=== PATIENT | female | born 1940 | race Caucasian/White ===

== ENCOUNTER 2016-06-10 18:22 | Emergency (ER) | payer MEDICARE, OTHER ==
[2016-06-10 19:51] LABS: CHLORIDE,CL 99 mmol/L (98-107); SODIUM,NA 135 mmol/L (136-145)
[2016-06-10] MEDS ORDERED: Sodium Chloride 0.9% 1,000 ML IV ONE (19:53)
[2016-06-10 20:32] VITALS: BP 127/70
[2016-06-10] MEDS ORDERED: cefTRIAXone 1 GM Vial IVPUSH ONE (21:26)
[2016-06-10] MEDS ORDERED: Take Home: Ondansetron 4 MG Tab.DIS, 2 Tab Pack PO ONE (21:31)
[2016-06-10] MEDS ORDERED: Take Home: Sulfamethoxazole/Trimethoprim 800-160 MG Tab, 2 Tab Pack PO ONE (21:33)
--- NOTE | 2016-06-27 11:16 | ER ---
Date of Service: 06/10/2016 SUBJECTIVE: Amanda presents to the emergency room after a syncopal episode. She states that she was using the toilet and had a bowel movement and during that process, had a syncopal episode and subsequently fell and struck her head. She states that she is also nauseated and has had 1 large emesis. EMS was summoned. They did give her IV Zofran on the way to the hospital for her nausea. The patient has not exhibited any further syncopal episodes. She states that she was not experiencing any chest pain or shortness of breath prior to this incident. PAST MEDICAL HISTORY: 1. Paroxysmal atrial tachycardia. 2. Hyperlipidemia. 3. Hypertension. 4. Asthma. 5. Lung nodule. 6. Hypothyroidism. 7. GERD. MEDICATIONS: 1. Calcium carbonate. 2. Ipratropium bromide. 3. Albuterol HFA. 4. Extra-strength Tylenol. 5. Albuterol sulfate. 6. Enteric-coated aspirin. 7. Vitamin D3. 8. Diltiazem ER. 9. Metoprolol tartrate. 10.Levothyroxine. 11.Advair 250/50. 12.Multivitamin. 13.Zocor. 14.Prilosec. ALLERGIES: NKDA. REVIEW OF SYSTEMS: General: No fever or chills. HEENT: Did strike head in the fall and the syncopal episode subsequent to fall. Denies any blurred vision. Denies any mid face trauma. Respiratory: No shortness breath. Cardiac: Denies any substernal chest pain. No jaw, arm, neck, or back pain. No palpitations. Gastrointestinal: Positive for nausea, vomiting. Denies any melena, hematochezia, or hematemesis. Genitourinary: Denies any dysuria. Musculoskeletal: No myalgias or arthralgias. Neurologic: Please see history of present illness. No seizure activity. No complaints of headache. PHYSICAL EXAMINATION: General: This is a 75-year-old female patient, who is in no acute distress. Vital Signs: Blood pressure is 127/70, O2 saturation is 92%, pulse rate is 82, temperature is 35.5. Skin: Warm, pink, and dry. HEENT: Head is normocephalic. She does have some abrasions to her nose and forehead. Eyes; PERRLA, extraocular movements are intact. Ears, TMs are clear. Mouth, oral mucosa is moist. No erythema or exudate noted in hypopharynx. Neck: Supple without masses. There is no lymphadenopathy. Lungs: Clear to auscultation. Heart: Regular rate and rhythm. Normal S1, S2. No S3, S4, murmurs, clicks, or rubs. Abdomen: Soft, nontender. There is no hepatosplenomegaly or masses noted. Nontender to palpation. Her bowel sounds are normoactive. Extremities: Without edema. Neurologic: The patient is alert, oriented, answers all questions appropriately. Her speech is fluent. Her gait is within normal limits. IMAGING: CT scan of the patient's brain was obtained. There was no evidence of any acute pathology on the CT scan. Flat and upright abdominal series was obtained. No evidence of any obvious obstruction noted. LABORATORY DATA: WBCs 17,000, hemoglobin is 15.3, platelets are 315. Chemistry; sodium is 135, potassium is 4.3, chloride is 99, bicarb is 28, BUN is 11, creatinine is 0.8, GFR is greater than 60, glucose is 117, calcium is 8.8, corrected calcium is 8.72, magnesium is 1.9. Total bilirubin is 0.5, AST is 22, ALT is 36, alkaline phosphatase is 78, total protein is 6.9, albumin is 4.1. Amylase is 44, lipase is 194. Urinalysis was obtained; she did have small leukocyte esterase, specific gravity is 1.025, she did have 30 protein, she did have few bacteria and 10 to 40 wbc's per high-power field. EMERGENCY ROOM COURSE: IV access was established. The patient was given a liter of normal saline IV. She reported feeling significantly better at time of discharge. She remained stable in my care in the emergency room. ASSESSMENT: 1. Syncopal episode secondary to vasovagal syncope. 2. Dehydration. PLAN: The patient will be discharged. Again, the patient was feeling much better. Her nausea was improved. We will have her follow up in the clinic in the next 5 to 7 days, sooner if she develops any chest pain, shortness of breath, headache, or other worrisome signs or symptoms. All questions were answered. MWK: 06/27/2016 10:02:53 MODL: 06/27/2016 10:48:19 /[id number]
== END 2016-06-10 22:05 | disposition home or self-care (01) ==
LOC: SUPCPDRO 18:22 → VM.ED 18:22
DX: R55 Syncope and collapse (principal); E86.0 Dehydration; R11.0 Nausea; I48.91 Unspecified atrial fibrillation; E78.5 Hyperlipidemia, unspecified; I10 Essential (primary) hypertension; J45.909 Unspecified asthma, uncomplicated; R91.1 Solitary pulmonary nodule; E03.9 Hypothyroidism, unspecified; K21.9 Gastro-esophageal reflux disease without esophagitis; Z79.899 Other long term (current) drug therapy
CPT/HCPCS: 36415; 70450; 74022; 80053; 81001; 82150; 83690; 83735; 85025; 96365; 96375; 99285; A9270; J0696; J7030; 99283-GF

== ENCOUNTER 2018-08-25 08:40 | Emergency (ER) | payer MEDICARE, OTHER ==
[2018-08-25] MEDS ORDERED: Sodium Chloride 0.9% 1,000 ML IV ONE (09:08)
--- NOTE | 2018-08-25 09:19 | EDM.PDOC ---
ED HPI GENERAL MEDICAL PROBLEM - General Chief Complaint: General Stated Complaint: urine frequency Time Seen by Provider: 08/25/18 08:50 Source of Information: Reports: Patient, EMS, EMS Notes Reviewed, RN History Limitations: Reports: No Limitations - History of Present Illness INITIAL COMMENTS - FREE TEXT/NARRATIVE: Patient comes in emergency Department with complaints of urinary frequency, hesitancy, and syncopal episode. Patient states that she went to bed approximately 9 PM last night and noticed that she had to use the bathroom multiple times and did not have a lot of output. Around 11 PM she woke up out of bed and she states from then on out throughout the night she was up every hour trying to use the restroom. She states that small amounts of amount each time but she felt urgency to have to go. She states that she woke up this morning is going to the bathroom she fell he she had a bowel movement but she was unable to have a bowel movement she became dizzy and lightheaded while she was sitting on the toilet. She banged on the wall to get her 's attention to assister her from the bathroom. She was dizzy lightheaded and felt she may puke. She states she did not faint and did not pass out. Her ended up contacting 911 for further assistance. By the time EMS arrived on scene patient states that she felt back to her baseline and needed to use the bathroom again for she felt urgency. EMS brought her into the emergency department she states that she does not feel weak faint or dizzy. He still continues to have urgency and hesitancy. She feels like her bladder is enlarged. She denies any burning sensation with urination. She also denies noting any blood in her urine. Patient denies any chest pain, shortness of breath, dizziness, lightheadedness, headache, blurred vision, or swelling in the lower extremities. Patient does not have a significant cardiac history. Patient does admit to having COPD and states it's fairly regulated. Patient denies any other concerns or complaints at the current time. Onset: Gradual Location: Reports: Generalized Quality: Reports: Other Severity: Mild Improves with: Reports: None Worsens with: Reports: None Associated Symptoms: Reports: No Other Symptoms - Related Data Allergies Allergy/AdvReac Type Severity Reaction Status Date / Time No Known Allergies Allergy Verified 08/25/18 09:22 Home Meds: Home Meds Aspirin [Ecotrin] 81 mg PO DAILY 03/29/14 [History] Calcium Carbonate/Vitamin D3 [Oyster Shell Calcium] 1 tab PO DAILY 03/29/14 [ History] Cholecalciferol (Vitamin D3) [Vitamin D3] 1,000 unit PO DAILY 03/29/14 [History] Fluticasone/Salmeterol [Advair 250-50 Diskus] 2 puff INH BID 03/29/14 [History] Levothyroxine Sodium [Levoxyl] 50 mcg PO DAILY 03/29/14 [History] Metoprolol Tartrate 25 mg PO BID 03/29/14 [History] Multivitamin [Multi Vitamin Daily] 1 each PO DAILY 03/29/14 [History] Omeprazole [Prilosec] 20 mg PO BID 03/29/14 [History] Simvastatin [Zocor] 10 mg PO DAILY 03/29/14 [History] predniSONE 5 mg PO ASDIRECTED 03/29/14 [History] Albuterol [Proventil HFA] 2 puff INH Q4H PRN 06/10/16 [History] Ipratropium [place] 2 sprays NS BID 06/10/16 [History] Diltiazem HCl [Diltiazem ER] 120 mg PO DAILY 08/25/18 [History] Meloxicam 15 mg PO DAILY 08/25/18 [History] guaiFENesin/Codeine Phosphate [Cheratussin AC Syrup] 10 ml PO Q4H PRN 08/25/18 [ History] Past Medical History HEENT History: Reports: Impaired Vision Cardiovascular History: Reports: High Cholesterol, Hypertension Other Cardiovascular History: paroxysmal atrial tachycardia, hyperlipidemia Respiratory History: Reports: Asthma Other Respiratory History: lung nodule Gastrointestinal History: Reports: GERD Other Endocrine/Metabolic History: hypothyroid Other Oncologic History: thyroid cancer Social & Family History - Caffeine Use Caffeine Use: Reports: None ED ROS GENERAL - Review of Systems Review Of Systems: ROS reveals no pertinent complaints other than HPI. Constitutional: Reports: No Symptoms HEENT: Reports: No Symptoms Respiratory: Reports: No Symptoms Cardiovascular: Reports: No Symptoms Endocrine: Reports: No Symptoms : Reports: Frequency, Urgency, Urinary Retention Musculoskeletal: Reports: No Symptoms Skin: Reports: No Symptoms Neurological: Reports: No Symptoms Psychiatric: Reports: No Symptoms Hematologic/Lymphatic: Reports: No Symptoms Immunologic: Reports: No Symptoms ED EXAM, GENERAL - Physical Exam Exam: See Below Exam Limited By: No Limitations General Appearance: Alert, WD/WN, No Apparent Distress Head: Atraumatic, Normocephalic Respiratory/Chest: No Respiratory Distress, Lungs Clear, Normal Breath Sounds, No Accessory Muscle Use, Chest Non-Tender Cardiovascular: Normal Peripheral Pulses, Regular Rate, Rhythm, No Edema GI/Abdominal: Normal Bowel Sounds, Soft, Non-Tender, No Distention Extremities: Normal Inspection, Normal Range of Motion, Non-Tender, Normal Capillary Refill Neurological: Alert, Oriented, Normal Gait Psychiatric: Normal Affect, Normal Mood Skin Exam: Warm, Dry, Intact, Normal Color Course - Vital Signs Last Recorded V/S: Last Vital Signs Temp 36.7 C 08/25/18 08:45 Pulse 112 H 08/25/18 08:45 Resp 16 08/25/18 08:45 BP 148/67 H 08/25/18 08:45 Pulse Ox 94 L 08/25/18 08:45 - Orders/Labs/Meds Orders: Active Orders 24 hr Category Date Time Status CULTURE URINE [RM] Stat Lab 08/25/18 10:30 Received Labs: Laboratory Tests 08/25/18 08/25/18 08/25/18 Range/Units 09:16 09:16 10:30 WBC 5.9 (4.0-10.0) x10^3/uL RBC 4.85 (4.00-5.50) x10^6/uL Hgb 14.8 (12.0-16.0) g/dL Hct 44.0 (33.0-47.0) % MCV 90.7 (78.0-93.0) fL MCH 30.5 (26.0-32.0) pg MCHC 33.6 (32.0-36.0) g/dL RDW Coeff of Deanna 13.0 (10.0-15.0) % Plt Count 214 D (130-400) x10^3/uL Neut % (Auto) 74.4 (50.0-80.0) % Lymph % (Auto) 11.6 L (25.0-50.0) % [place] % (Auto) 12.8 H (2.0-11.0) % Eos % (Auto) 0.7 (0.0-4.0) % Baso % (Auto) 0.5 (0.2-1.2) % Sodium 137 (136-145) mmol/L Potassium 4.3 (3.5-5.1) mmol/L Chloride 102 (98-107) mmol/L Carbon Dioxide 25 (21-32) mmol/L Anion Gap 14.3 (10-20) mmol/L BUN 12 (7-18) mg/dL Creatinine 0.9 (0.55-1.02) mg/dL Est Cr Clr Drug Dosing TNP Estimated GFR (MDRD) > 60 Glucose 110 H (74-106) mg/dL Calcium 8.4 L (8.5-10.1) mg/dL Corrected Calcium 8.80 (8.5-10.1) mg/dL Total Bilirubin 0.5 (0.2-1.0) mg/dL AST 20 (15-37) U/L ALT 28 (14-59) U/L Alkaline Phosphatase 68 (46-116) U/L Troponin I < 0.017 (<=0.056) ng/mL Total Protein 6.5 (6.4-8.2) g/dL Albumin 3.5 (3.4-5.0) g/dL Globulin 3.0 Albumin/Globulin Ratio 1.17 Urine Color Yellow (YELLOW) Urine Appearance Clear (CLEAR) Urine pH 7.5 (5.0-8.0) Ur Specific [place] 1.010 Urine Protein Negative (NEGATIVE) mg/dL Urine Glucose (UA) Negative (NEGATIVE) mg/dL Urine Ketones Negative (NEGATIVE) mg/dL Urine Occult Blood Negative (NEGATIVE) Urine Nitrite Negative (NEGATIVE) Urine Bilirubin Negative (NEGATIVE) Urine Urobilinogen 0.2 (0.2) EU/dL Ur Leukocyte Esterase Trace H (NEGATIVE) Urine RBC Not seen (NOT SEEN) /HPF Urine WBC 0-5 (NOT SEEN) /HPF Ur Squamous Epith Cells Rare (NEGATIVE) /HPF Urine Bacteria Not seen (NEGATIVE) /HPF Urine Mucus Not seen (NEGATIVE) /LPF Meds: Medications Discontinued Medications Generic Name Dose Route Start Last Admin Trade Name Freq PRN Reason Stop Dose Admin Sodium Chloride 1,000 mls @ 1,000 mls/hr 08/25/18 09:08 08/25/18 09:43 Normal Saline IV 08/25/18 10:07 Not Given ONETIME ONE Departure - Departure Time of Disposition: 10:50 Disposition: Home, Self-Care 01 Clinical Impression: Vasovagal near-syncope, Urinary frequency - Discharge Information *PRESCRIPTION DRUG MONITORING PROGRAM REVIEWED*: Not Applicable *COPY OF PRESCRIPTION DRUG MONITORING REPORT IN PATIENT ROSALIO: Not Applicable Instructions: Near-Syncope, [id number] Referrals: Micahel Larose MD [Primary Care Provider] - Forms: ED Department Discharge Additional Instructions: 1. rest 2. increase your water intake 3. Take all antibiotics even if feeling better 4. Follow up as needed 5. Can take over the counter AZO if needed for bladder spasms 6. Activity and diet as tolerated 7. When needing to use the bathroom try and make sure you are hydrated and not to strain when trying to have a bowel movement. That can cause a quick drop in your blood pressure making you feel weak, faint, and dizzy 8. Labs today completed did not show any acute findings. Urine test revealed a UTI 9. EKG completed today did not show any acute findings 10. Call with any questions or concerns - Problem List Review Problem List Initiated/Reviewed/Updated: Yes - My Orders Last 24 Hours: My Active Orders 08/25/18 10:30 CULTURE URINE [RM] Stat - Assessment/Plan Last 24 Hours: My Active Orders 08/25/18 10:30 CULTURE URINE [RM] Stat Assessment:: 1. urinary frequency/hesitancy/retention 2. Near Syncopal-vasovagal response Plan: 1. EKG completed via ems. Result reviewed with the pt. Sinus tach with no acute findings 2. Labs completed. results reviewed with the patient 3. IV started via EMS fluids running. 1L NS given in ER total 4. UA completed in ER. negative findings 5. Education regarding care, activity, diet, and follow up provided 6. All questions and concerns addressed prior to discharge
[2018-08-25 09:45] LABS: CHLORIDE,CL 102 mmol/L (98-107); SODIUM,NA 137 mmol/L (136-145)
[2018-08-25 09:46] LABS: ANION GAP 14.3 mmol/L (10-20)
[2018-08-25 13:45] VITALS: BP 147/83
== END 2018-08-25 11:00 | disposition home or self-care (01) ==
LOC: VM.ED 08:40
DX: R55 Syncope and collapse (principal); R35.0 Frequency of micturition; I10 Essential (primary) hypertension; E78.00 Pure hypercholesterolemia, unspecified; K21.9 Gastro-esophageal reflux disease without esophagitis; E03.9 Hypothyroidism, unspecified; Z79.899 Other long term (current) drug therapy; Z79.82 Long term (current) use of aspirin
CPT/HCPCS: 36415; 80053; 81001; 84484; 85025; 87086; 99284; 99284-GF

== ENCOUNTER 2019-01-12 08:58 | Emergency (ER) | payer MEDICARE, OTHER ==
[2019-01-12 09:14] VITALS: BP 144/76; PULSE 97
--- NOTE | 2019-01-12 09:24 | EDM.PDOC ---
ED HPI GENERAL MEDICAL PROBLEM - General Chief Complaint: General Stated Complaint: WEAK, PASSED OUT Time Seen by Provider: 01/12/19 09:00 Source of Information: Reports: Patient History Limitations: Reports: No Limitations - History of Present Illness INITIAL COMMENTS - FREE TEXT/NARRATIVE: Patient states over the last 3 or 4 days she has not had a bowel movement she got up about 1:00 this morning to try to use the restroom while straining she got lightheaded and a little dizzy that resolved after a few minutes and she was back to bed. About 7:00 this morning while trying to have another bowel movement she had the same signs and symptoms went back to the bed and her called EMS. Patient states she has been taking [id number] MiraLAX with no relief. Patient states she has mild intermittent abdominal cramping that's been going on for about 3-4 days non-generalized may last just a few minutes and then go away she's been eating and drinking normally. She states she did feel nauseated with getting loaded onto the EMS stretcher but it resolved after a few seconds overall she states she has been doing very well and had a normal checkup last week with her primary care provider. She has no other complaints at this time Onset Date: 01/12/19 Onset Time: 08:55 Location: Reports: Abdomen Quality: Reports: Other (crampy ) Severity: Mild (3) Associated Symptoms: Reports: No Other Symptoms Abdomen Pain Score (Numeric/FACES): 3 - Related Data Allergies Allergy/AdvReac Type Severity Reaction Status Date / Time No Known Allergies Allergy Verified 01/12/19 09:09 Home Meds: Home Meds Cholecalciferol (Vitamin D3) [Vitamin D3] 1,000 unit PO DAILY 03/29/14 [History] Fluticasone/Salmeterol [Advair 250-50 Diskus] 2 puff INH BID 03/29/14 [History] Levothyroxine Sodium [Levoxyl] 50 mcg PO DAILY 03/29/14 [History] Metoprolol Tartrate 25 mg PO BID 03/29/14 [History] Multivitamin [Multi Vitamin Daily] 1 each PO DAILY 03/29/14 [History] Omeprazole [Prilosec] 20 mg PO ASDIRECTED 03/29/14 [History] Simvastatin [Zocor] 10 mg PO DAILY 03/29/14 [History] predniSONE 5 mg PO ASDIRECTED 03/29/14 [History] Albuterol [Proventil HFA] 2 puff INH Q4H PRN 06/10/16 [History] Ipratropium [place] 2 sprays NS BID 06/10/16 [History] Codeine Phosphate/Guaifenesin [Cheratussin AC Syrup] 10 ml PO Q4H PRN 08/25/18 [ History] Diltiazem HCl [Diltiazem ER] 120 mg PO DAILY 08/25/18 [History] Meloxicam 15 mg PO DAILY 08/25/18 [History] Fluticasone/Salmeterol [Advair 250-50 Diskus] 01/12/19 [History] Past Medical History HEENT History: Reports: Impaired Vision Cardiovascular History: Reports: High Cholesterol, Hypertension Other Cardiovascular History: paroxysmal atrial tachycardia, hyperlipidemia Respiratory History: Reports: Asthma Other Respiratory History: lung nodule Gastrointestinal History: Reports: GERD Other Endocrine/Metabolic History: hypothyroid Other Oncologic History: thyroid cancer Social & Family History - Tobacco Use Smoking Status *Q: Former Smoker Used Tobacco, but Quit: Yes Month/Year Tobacco Last Used: 1997 - Caffeine Use Caffeine Use: Reports: None ED ROS GENERAL - Review of Systems Review Of Systems: See Below Constitutional: Reports: No Symptoms. Denies: Fever, Chills, Malaise, Weakness HEENT: Reports: No Symptoms Respiratory: Reports: No Symptoms. Denies: Shortness of Breath, Pleuritic Chest Pain Cardiovascular: Reports: Other (near syncope ). Denies: Chest Pain, Blood Pressure Problem, Dyspnea on Exertion, Lightheadedness Endocrine: Reports: No Symptoms GI/Abdominal: Reports: Abdominal Pain, Constipation. Denies: Anorexia, Black Stool, Bloody Stool, Decreased Appetite, Difficulty Swallowing, Distension, Flatus, Nausea, Stool Incontinence, Vomiting : Reports: No Symptoms Musculoskeletal: Reports: No Symptoms Skin: Reports: No Symptoms. Denies: Cyanosis Neurological: Denies: Confusion, Dizziness, Headache, Numbness, Difficulty Walking, Weakness Psychiatric: Reports: No Symptoms Hematologic/Lymphatic: Reports: No Symptoms Immunologic: Reports: No Symptoms ED EXAM, GENERAL - Physical Exam Exam: See Below Exam Limited By: No Limitations General Appearance: Alert, WD/WN, No Apparent Distress, Other (Cranial nerves II through XII are intact patient is very friendly follows all commands and answers all questions she is in no acute distress laughing during the exam) Eye Exam: Bilateral Eye: Normal Inspection Ears: Normal External Exam, Normal Canal, Hearing Grossly Normal Nose: Normal Inspection, Normal Mucosa Throat/Mouth: Normal Inspection, Normal Lips, Normal Teeth, Normal Gums, Normal Oropharynx, Normal Voice, No Airway Compromise, Other (mmm) Head: Atraumatic, Normocephalic Neck: Normal Inspection, Supple, Non-Tender, Full Range of Motion Respiratory/Chest: No Respiratory Distress, Lungs Clear, Normal Breath Sounds, No Accessory Muscle Use, Chest Non-Tender Cardiovascular: Normal Peripheral Pulses, Regular Rate, Rhythm, No Edema, No Gallop, No JVD GI/Abdominal: Normal Bowel Sounds, Soft, Non-Tender, No Organomegaly, No Distention. No: Distended, Guarding, Rigid, Rebound, Tender, Abnormal Bowel Sounds Extremities: Normal Inspection, Normal Range of Motion, No Pedal Edema, Normal Capillary Refill Neurological: Alert, Oriented, CN II-XII Intact Psychiatric: Normal Affect, Normal Mood Skin Exam: Warm, Dry, Intact, Normal Color, No Rash Course - Vital Signs Text/Narrative:: cbc bmp ekg Labs normal EKG no acute changes from prior last 2 EKGs After speaking with the son and daughter and the they state the patient has done this multiple times over the years has been worked up no clear diagnosis has been told it is vaso vagel multiple times and she has had intermittent constipation over the years and this is nothing new They are okay with going home and discharge and follow up with her primary care provider the patient is good with going home and trying treatments for the constipation at home Last Recorded V/S: Last Vital Signs Temp 35.2 C L 01/12/19 09:00 Pulse 97 01/12/19 09:00 Resp 18 01/12/19 09:00 BP 144/76 H 01/12/19 09:00 Pulse Ox 97 01/12/19 09:00 - Orders/Labs/Meds Orders: Active Orders 24 hr Category Date Time Status EKG 12 Lead [EKG Documentation Completion] [RC] STAT Care 01/12/19 09:26 Active Labs: Laboratory Tests 01/12/19 01/12/19 Range/Units 09:14 09:14 WBC 13.1 H (4.0-10.0) x10^3/uL RBC 4.96 (4.00-5.50) x10^6/uL Hgb 15.3 (12.0-16.0) g/dL Hct 44.5 (33.0-47.0) % MCV 89.7 (78.0-93.0) fL MCH 30.8 (26.0-32.0) pg MCHC 34.4 (32.0-36.0) g/dL RDW Coeff of Deanna 12.4 (10.0-15.0) % Plt Count 255 (130-400) x10^3/uL Neut % (Auto) 89.0 H (50.0-80.0) % Lymph % (Auto) 5.7 L (25.0-50.0) % [place] % (Auto) 5.1 (2.0-11.0) % Eos % (Auto) 0.0 (0.0-4.0) % Baso % (Auto) 0.2 (0.2-1.2) % Sodium 136 (69-191) mmol/L Potassium 4.5 (1.5-9.9) mmol/L Chloride 98 (54-184) mmol/L Carbon Dioxide 25 (21-32) mmol/L Anion Gap 17.5 (10-20) mmol/L BUN 13 (7-18) mg/dL Creatinine 0.9 (0.55-1.02) mg/dL Est Cr Clr Drug Dosing TNP Estimated GFR (MDRD) > 60 Glucose 147 H (74-106) mg/dL Calcium 8.5 (8.5-10.1) mg/dL Departure - Departure Time of Disposition: 10:00 Disposition: Home, Self-Care 01 Condition: Good Clinical Impression: Vaso vagal episode - Discharge Information Instructions: Near-Syncope, [id number] Referrals: Michael Larose MD [Primary Care Provider] - Forms: ED Department Discharge Additional Instructions: Follow up with her primary care provider in the next 24-48 hours Return to the emergency room if anything changes or gets worse anything out of the ordinary - My Orders Last 24 Hours: My Active Orders 01/12/19 09:26 EKG 12 Lead [EKG Documentation Completion] [RC] STAT - Assessment/Plan Last 24 Hours: My Active Orders 01/12/19 09:26 EKG 12 Lead [EKG Documentation Completion] [RC] STAT
[2019-01-12 09:36] LABS: CHLORIDE,CL 98 mmol/L (54-184); SODIUM,NA 136 mmol/L (69-191)
[2019-01-12 09:38] LABS: ANION GAP 17.5 mmol/L (10-20)
== END 2019-01-12 10:38 | disposition home or self-care (01) ==
LOC: VM.ED 08:58
DX: R55 Syncope and collapse (principal); I10 Essential (primary) hypertension; E03.9 Hypothyroidism, unspecified; J45.909 Unspecified asthma, uncomplicated; K21.9 Gastro-esophageal reflux disease without esophagitis; E78.00 Pure hypercholesterolemia, unspecified; E78.5 Hyperlipidemia, unspecified; Z79.51 Long term (current) use of inhaled steroids; Z79.890 Hormone replacement therapy; Z79.899 Other long term (current) drug therapy; Z87.891 Personal history of nicotine dependence
CPT/HCPCS: 36415; 80048; 85025; 93005; 99283-GF; 99284-25

== ENCOUNTER 2019-12-22 08:12 | Emergency (ER) | payer MEDICARE, OTHER ==
[2019-12-22] MEDS ORDERED: Sodium Chloride 0.9% 10 ML Syringe FLUSH PRN (08:23)
--- NOTE | 2019-12-22 08:23 | EDM.PDOC ---
ED HPI GENERAL MEDICAL PROBLEM - General Stated Complaint: ER Time Seen by Provider: 12/22/19 08:12 Source of Information: Reports: Patient, Family - History of Present Illness INITIAL COMMENTS - FREE TEXT/NARRATIVE: Amanda is an 79 y/o female who is brought to the ER by EMS after she had gotten up tot he bathroom and fell. Her reported that she had gotten ill through the night in bed and told him that she couldn't breath. She then got up to use the bathroom and throw up since she had an upset stomach. While in the bathroom she fell and her heard a loud noise and got up and found her lying on the floor in the bathroom. She had apparently hit her head and he reports that she appeared to have passed out or had lost consciousness. She did vomit a green bile colored emesis while in the bathroom When EMS arrived the patient was alert and could answer questions. She was given NS 500ml and Zofran 4 mg IVP enroute to the ER. Patient reports that her stomach was upset all night and she had gotten up to the bathroom to vomit prior to falling and passing out. She did have a small, constipated BM yesterday. - Related Data Allergies Allergy/AdvReac Type Severity Reaction Status Date / Time No Known Allergies Allergy Verified 12/22/19 08:26 Home Meds: Home Meds Cholecalciferol (Vitamin D3) [Vitamin D3] 1,000 unit PO DAILY 03/29/14 [History] Fluticasone/Salmeterol [Advair 250-50 Diskus] 2 puff INH BID 03/29/14 [History] Levothyroxine Sodium [Levoxyl] 50 mcg PO DAILY 03/29/14 [History] Metoprolol Tartrate 25 mg PO BID 03/29/14 [History] Multivitamin [Multi Vitamin Daily] 1 each PO DAILY 03/29/14 [History] Simvastatin [Zocor] 10 mg PO DAILY 03/29/14 [History] Albuterol [Proventil HFA] 2 puff INH Q4H PRN 06/10/16 [History] Ipratropium [place] 2 sprays NS BID 06/10/16 [History] Meloxicam 15 mg PO DAILY 08/25/18 [History] dilTIAZem HCL [Diltiazem ER] 120 mg PO DAILY 08/25/18 [History] Albuterol/Ipratropium [DuoNeb 3.0-0.5 MG/3 ML] 3 ml IH TID 12/22/19 [History] Cetirizine [ZyrTEC] 10 mg PO DAILY 12/22/19 [History] Gabapentin [Neurontin] 200 mg PO BEDTIME 12/22/19 [History] Nystatin 5 ml PO QID 12/22/19 [History] Past Medical History HEENT History: Reports: Impaired Vision Cardiovascular History: Reports: High Cholesterol, Hypertension, Syncope Other Cardiovascular History: paroxysmal atrial tachycardia, hyperlipidemia Respiratory History: Reports: Asthma Other Respiratory History: lung nodule Gastrointestinal History: Reports: GERD Other Endocrine/Metabolic History: hypothyroid Other Oncologic History: thyroid cancer Social & Family History - Caffeine Use Caffeine Use: Reports: None Review of Systems - Review of Systems Review Of Systems: See Below Constitutional: Reports: Weakness Eyes: Reports: No Symptoms Ears: Reports: No Symptoms Nose: Reports: No Symptoms Mouth/Throat: Reports: Other (Thrush due to inhaler use) Respiratory: Reports: No Symptoms Cardiovascular: Reports: No Symptoms GI/Abdominal: Reports: Nausea, Vomiting Genitourinary: Reports: No Symptoms Musculoskeletal: Reports: No Symptoms Skin: Reports: No Symptoms Neurological: Reports: Syncope Psychiatric: Reports: No Symptoms ED EXAM, GENERAL - Physical Exam Exam: See Below General Appearance: Alert, WD/WN (Elderly female), No Apparent Distress Eye Exam: Bilateral Eye: Normal Inspection, PERRL Ears: Normal External Exam, Normal Canal, Hearing Grossly Normal, Normal TMs Ear Exam: Bilateral Ear: Auricle Normal Nose: Normal Inspection, Normal Mucosa Throat/Mouth: Normal Lips, Other (Edentulous, note tongue and lips slightly dry, and whitish appearance to tongue noted) Head: Normocephalic, Other (note small bump with a light abrasion to the right forehead region) Neck: Normal Inspection, Supple, Non-Tender Respiratory/Chest: No Respiratory Distress, Lungs Clear, Normal Breath Sounds, Chest Non-Tender Cardiovascular: Normal Peripheral Pulses, Regular Rate, Rhythm, No Murmur GI/Abdominal: Soft, Non-Tender, No Distention, Other (Hyperactive bowel sounds) (Female) Exam: Deferred Rectal (Female) Exam: Deferred Back Exam: Normal Inspection Extremities: Normal Inspection, No Pedal Edema, Normal Capillary Refill Neurological: Alert, Oriented, CN II-XII Intact, Normal Cognition Psychiatric: Normal Affect, Normal Mood Skin Exam: Warm, Dry, Intact, Normal Color, No Rash Lymphatic: No Adenopathy EKG INTERPRETATION EKG Date: 12/22/19 Time: 08:11 Rhythm: Other (Sinus Arrhythmia) Rate (Beats/Min): 75 [place]: Normal P-Wave: Present QRS: Normal ST-T: Normal QT: Normal Comparison: No Change EKG Interpretation Comments: Compared to 01-12-2019 Course - Vital Signs Text/Narrative:: 0812 The patient was seen by the [employer] on arrival. Labs, EKG, and Diagnostic Imaging ordered. She was given additional IV fluids. Zofran was given enroute by EMS and not repeated. 0940 Dr Palafox from [facility] contacted [employer] regarding xray results and recommends CT Abd/Pelvis W to rule out sigmoid volvulus. 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 1115 [facility] contacted with patient and transfer requested. CT films sent for review. COVID test ordered. 1148 Dr Chapin from [facility] called back and accepted patient for transfer. Patient to remain NPO and holding here in the ER for bed assignment at [facility]. [facility] to transport patient to [place]. Patient remains stable and pain free at this time. Last Recorded V/S: Last Vital Signs Temp 37.0 C 12/22/19 11:23 Pulse 86 12/22/19 11:23 Resp 14 12/22/19 11:23 BP 137/77 12/22/19 11:23 Pulse Ox 96 12/22/19 11:23 - Orders/Labs/Meds Orders: Active Orders 24 hr Category Date Time Status EKG Documentation Completion [RC] STAT Care 12/22/19 08:23 Active NPO Now [Nothing per Oral Now Diet] [DIET] Diet 12/22/19 Lunch Ordered CORONAVIRUS COVID-19 RAPID [MOLEC] Routine Lab 12/22/19 11:34 Ordered CULTURE URINE [RM] Stat Lab 12/22/19 09:28 Received Sodium Chloride 0.9% [Saline Flush] Med 12/22/19 08:23 Active 10 ml FLUSH ASDIRECTED PRN Saline Lock Insert [OM.PC] Stat Oth 12/22/19 08:23 Ordered Medication Orders Sodium Chloride (Saline Flush) 10 ml FLUSH ASDIRECTED PRN PRN Reason: Keep Vein Open Labs: Laboratory Tests 12/22/19 12/22/19 12/22/19 Range/Units 08:35 08:35 09:28 WBC 14.5 H (4.0-10.0) x10^3/uL RBC 4.99 (4.00-5.50) x10^6/uL Hgb 15.1 (12.0-16.0) g/dL Hct 44.9 (33.0-47.0) % MCV 90.0 (78.0-93.0) fL MCH 30.3 (26.0-32.0) pg MCHC 33.6 (32.0-36.0) g/dL RDW Coeff of Deanna 12.3 (10.0-15.0) % Plt Count 254 (130-400) x10^3/uL Neut % (Auto) 85.2 H (50.0-80.0) % Lymph % (Auto) 7.7 L (25.0-50.0) % [place] % (Auto) 6.8 (2.0-11.0) % Eos % (Auto) 0.1 (0.0-4.0) % Baso % (Auto) 0.2 (0.2-1.2) % Sodium 137 (136-145) mmol/L Potassium 4.7 (3.5-5.1) mmol/L Chloride 99 (98-107) mmol/L Carbon Dioxide 30 (21-32) mmol/L Anion Gap 12.7 (10-20) mmol/L BUN 11 (7-18) mg/dL Creatinine 0.9 (0.55-1.02) mg/dL Est Cr Clr Drug Dosing TNP Estimated GFR (MDRD) > 60 Glucose 132 H (74-106) mg/dL Calcium 8.2 L (8.5-10.1) mg/dL Corrected Calcium 8.28 L (8.5-10.1) mg/dL Total Bilirubin 0.5 (0.2-1.0) mg/dL AST 19 (15-37) U/L ALT 30 (14-59) U/L Alkaline Phosphatase 61 (46-116) U/L Troponin I 0.024 (<=0.056) ng/mL Total Protein 6.8 (6.4-8.2) g/dL Albumin 3.9 (3.4-5.0) g/dL Globulin 2.9 Albumin/Globulin Ratio 1.34 Urine Color Yellow (YELLOW) Urine Appearance Slightly cloudy H (CLEAR) Urine pH 8.5 H (5.0-8.0) Ur Specific [place] 1.025 Urine Protein Negative (NEGATIVE) mg/dL Urine Glucose (UA) Negative (NEGATIVE) mg/dL Urine Ketones Negative (NEGATIVE) mg/dL Urine Occult Blood Negative (NEGATIVE) Urine Nitrite Negative (NEGATIVE) Urine Bilirubin Negative (NEGATIVE) Urine Urobilinogen 0.2 (0.2) EU/dL Ur Leukocyte Esterase Trace H (NEGATIVE) Urine RBC 0-5 (NOT SEEN) /HPF Urine WBC 5-10 H (NOT SEEN) /HPF Ur Squamous Epith Cells Occasional H (NEGATIVE) /HPF Amorphous Sediment Few Urine Bacteria Rare (NEGATIVE) /HPF Urine Mucus Occasional H (NEGATIVE) /LPF COVID-19 ([facility]) (NEGATIVE) 12/22/19 Range/Units 11:18 WBC (4.0-10.0) x10^3/uL RBC (4.00-5.50) x10^6/uL Hgb (12.0-16.0) g/dL Hct (33.0-47.0) % MCV (78.0-93.0) fL MCH (26.0-32.0) pg MCHC (32.0-36.0) g/dL RDW Coeff of Deanna (10.0-15.0) % Plt Count (130-400) x10^3/uL Neut % (Auto) (50.0-80.0) % Lymph % (Auto) (25.0-50.0) % [place] % (Auto) (2.0-11.0) % Eos % (Auto) (0.0-4.0) % Baso % (Auto) (0.2-1.2) % Sodium (136-145) mmol/L Potassium (3.5-5.1) mmol/L Chloride (98-107) mmol/L Carbon Dioxide (21-32) mmol/L Anion Gap (10-20) mmol/L BUN (7-18) mg/dL Creatinine (0.55-1.02) mg/dL Est Cr Clr Drug Dosing Estimated GFR (MDRD) Glucose (74-106) mg/dL Calcium (8.5-10.1) mg/dL Corrected Calcium (8.5-10.1) mg/dL Total Bilirubin (0.2-1.0) mg/dL AST (15-37) U/L ALT (14-59) U/L Alkaline Phosphatase (46-116) U/L Troponin I (<=0.056) ng/mL Total Protein (6.4-8.2) g/dL Albumin (3.4-5.0) g/dL Globulin Albumin/Globulin Ratio Urine Color (YELLOW) Urine Appearance (CLEAR) Urine pH (5.0-8.0) Ur Specific [place] Urine Protein (NEGATIVE) mg/dL Urine Glucose (UA) (NEGATIVE) mg/dL Urine Ketones (NEGATIVE) mg/dL Urine Occult Blood (NEGATIVE) Urine Nitrite (NEGATIVE) Urine Bilirubin (NEGATIVE) Urine Urobilinogen (0.2) EU/dL Ur Leukocyte Esterase (NEGATIVE) Urine RBC (NOT SEEN) /HPF Urine WBC (NOT SEEN) /HPF Ur Squamous Epith Cells (NEGATIVE) /HPF Amorphous Sediment Urine Bacteria (NEGATIVE) /HPF Urine Mucus (NEGATIVE) /LPF COVID-19 ([facility]) Invalid A (NEGATIVE) Meds: Medications Generic Name Dose Route Start Last Admin Trade Name Freq PRN Reason Stop Dose Admin Sodium Chloride 10 ml 12/22/19 08:23 Saline Flush FLUSH ASDIRECTED PRN Keep Vein Open Discontinued Medications Generic Name Dose Route Start Last Admin Trade Name Freq PRN Reason Stop Dose Admin Sodium Chloride 1,000 mls @ 999 mls/hr 12/22/19 08:26 12/22/19 08:39 Normal Saline IV 12/22/19 09:26 999 mls/hr ONETIME ONE Administration Iopamidol 100 ml 12/22/19 10:02 12/22/19 10:21 Isovue-300 (61%) IVPUSH 12/22/19 10:03 100 ml ONETIME ONE Administration Ondansetron HCl 4 mg 12/22/19 08:26 Zofran IVPUSH 12/22/19 08:27 ONETIME ONE - Radiology Interpretation Free Text/Narrative:: CT Head WO=no acute findings XR Abd 2V=Possible sigmoid volvulus, CT recommended Departure - Departure Time of Disposition: 11:49 Disposition: DC/Tfer to Acute Hospital 02 Condition: Good Clinical Impression: Cecal volvulus, Acute mesenteric ischemia, Syncope - Discharge Information *PRESCRIPTION DRUG MONITORING PROGRAM REVIEWED*: Not Applicable *COPY OF PRESCRIPTION DRUG MONITORING REPORT IN PATIENT ROSALIO: Not Applicable Referrals: Digna Reese, [Primary Care Provider] - Forms: Interfacility Transfer EMTALA Additional Instructions: -Transfer to [facility] via [facility] when bed assigned Sepsis Event Note (ED) - Focused Exam Vital Signs: Vital Signs Temp Pulse Resp BP Pulse Ox 12/22/19 11:23 37.0 C 86 14 137/77 96 12/22/19 08:14 36.5 C 87 18 157/83 H 96 - My Orders Last 24 Hours: My Active Orders 12/22/19 08:23 EKG Documentation Completion [RC] STAT Sodium Chloride 0.9% [Saline Flush] 10 ml FLUSH ASDIRECTED PRN Saline Lock Insert [OM.PC] Stat 12/22/19 09:28 CULTURE URINE [RM] Stat 12/22/19 Lunch NPO Now [Nothing per Oral Now Diet] [DIET] 12/22/19 11:34 CORONAVIRUS COVID-19 RAPID [MOLEC] Routine - Assessment/Plan Last 24 Hours: My Active Orders 12/22/19 08:23 EKG Documentation Completion [RC] STAT Sodium Chloride 0.9% [Saline Flush] 10 ml FLUSH ASDIRECTED PRN Saline Lock Insert [OM.PC] Stat 12/22/19 09:28 CULTURE URINE [RM] Stat 12/22/19 Lunch NPO Now [Nothing per Oral Now Diet] [DIET] 12/22/19 11:34 CORONAVIRUS COVID-19 RAPID [MOLEC] Routine
[2019-12-22] MEDS ORDERED: Sodium Chloride 0.9% 1,000 ML IV ONE (08:26)
[2019-12-22] MEDS ORDERED: Ondansetron 4 MG/2 ML SDV IVPUSH ONE (08:26)
[2019-12-22 09:05] LABS: CHLORIDE,CL 99 mmol/L (98-107); SODIUM,NA 137 mmol/L (136-145)
[2019-12-22 09:06] LABS: ANION GAP 12.7 mmol/L (10-20)
--- NOTE | 2019-12-22 09:47 | CT ---
[id number] CT/CT Head WO IV EXAM: NONCONTRAST HEAD CT INDICATION: SYNCOPAL, HIT HEAD IN BATHROOM. COMPARISON: June 10, 2016. DISCUSSION: Focal soft tissue swelling/hematoma right forehead/anterior scalp. Stable mild to moderate generalized atrophy. Stable mild to moderate multifocal white matter hypoattenuation is nonspecific, but generally ascribed to chronic small vessel ischemia. No mass effect or midline shift. No acute hemorrhage or extra-axial fluid collection. A possible right posterior fossa meningioma abutting the sigmoid sinus measuring about 16 mm is unchanged. No acute territorial infarct is identified. A limited look at the orbits and paranasal sinuses is unremarkable. IMPRESSION: 1. No acute findings. Ted Palafox MD 12/22/19 0946 Thank you for allowing us to participate in the care of your patient.
--- NOTE | 2019-12-22 09:58 | CR ---
[id number] RAD/RAD Abd Flat and Upright 2V EXAM: RAD Abd Flat and Upright 2V INDICATION: CONSTIPATION, NAUSEA, VOMITING, SYNCOPE. COMPARISON: June 10, 2016. DISCUSSION: Mild linear scarring or atelectasis in the right lung base. There is a mildly prominent colonic stool volume. The sigmoid colon is distended to about 8.7 cm, projects into the upper abdomen and demonstrates air-fluid levels suggesting a possible sigmoid volvulus. Correlation with a contrast-enhanced abdomen and pelvis CT (IV only) is suggested. No pneumatosis or free air is identified. Results called at time dictation. IMPRESSION: 1. Findings suggestive of a possible sigmoid volvulus. An abdomen and pelvis CT with intravenous contrast is suggested for further characterization. Ted Palafox MD 12/22/19 0956 Thank you for allowing us to participate in the care of your patient.
[2019-12-22] MEDS ORDERED: Iopamidol 612 MG/ML 100 ML Bottle IVPUSH ONE (10:02)
--- NOTE | 2019-12-22 11:16 | CT ---
[id number] CT/CT Abdomen Pelvis W IV EXAM: CT Abdomen Pelvis W IV CLINICAL DATA: RULE OUT SIGMOID VOLVULUS. COMPARISON STUDY: Radiograph from today. FINDINGS: Lung bases are clear. Nodular hyperplasia of the adrenal glands. Simple appearing cortical cysts in the kidneys. Liver, spleen, and pancreas are unremarkable. Findings consistent with cecal volvulus. The cecum and terminal ileum are located in the upper mid abdomen (series 2 image 44). Distal to the mesenteric twist, the volvulus segment of bowel is dilated, correlating with appearance on radiograph. Mild amount of mesenteric edema associated with the abnormal bowel, suggesting possible early changes of ischemia. Small amount of free fluid in the dependent recess of the pelvis as well. No portal venous gas, pneumoperitoneum, or pneumatosis. Sliding-type hiatus hernia. No small bowel obstruction. Hysterectomy. Adnexal regions are unremarkable. Chronic appearing L3 compression fracture. Lumbar spondylosis, including advanced facet joint arthropathy at L4-5 and L5-S1. IMPRESSION: Cecal volvulus with possible mild/early changes of ischemia associated with the abnormal segment of bowel, described above. Results relayed to Francia Astudillo at time of dictation. Marc Bullock MD 12/22/19 [id number] Thank you for allowing us to participate in the care of your patient.
[2019-12-22 16:07] VITALS: BP 123/69; PULSE 88
== END 2019-12-22 16:33 | disposition short-term general hospital (02) ==
LOC: VM.ED 08:12
DX: S00.81XA Abrasion of other part of head, initial encounter (principal); R55 Syncope and collapse; K55.059 Acute (reversible) ischemia of intestine, part and extent unspecified; K56.2 Volvulus; I10 Essential (primary) hypertension; E78.5 Hyperlipidemia, unspecified; J45.909 Unspecified asthma, uncomplicated; E03.9 Hypothyroidism, unspecified; Z79.899 Other long term (current) drug therapy; W01.0XXA Fall on same level from slipping, tripping and stumbling without subsequent striking against object, initial encounter; Y92.091 Bathroom in other non-institutional residence as the place of occurrence of the external cause
CPT/HCPCS: 36415; 70450; 74019; 74177; 80053; 81001; 84484; 85025; 87086; 93005; 93010; 96360; 96361; 99284; 99285-25; J7030; Q9967; U0002

== ENCOUNTER 2021-03-23 19:49 | Observation (INO) | payer MEDICARE, OTHER ==
--- NOTE | 2021-03-23 19:59 | EDM.PDOC ---
ED HPI GENERAL MEDICAL PROBLEM - General Chief Complaint: Head Injury Stated Complaint: Fall with head injury Time Seen by Provider: 03/23/21 19:50 Source of Information: Reports: Patient, EMS, Family History Limitations: Reports: No Limitations - History of Present Illness INITIAL COMMENTS - FREE TEXT/NARRATIVE: Patient and her state they were coming in after being in [place] all day going into the back door and slipped on the ramp going up on the ice. Patient states she remembers falling backwards and hit her head on the concrete states she had LOC for about 1 minute but is able to get up with assistance and walking to the house. She denies any issues prior to the fall and states she has had a pretty good day overall Patient denies any headache loss or change in vision no nausea or vomiting she does have complaints to her right knee about a 4 out of 10 dull throbbing she has no other complaints at this time she does not take any blood thinners Onset: Today Duration: Minutes: Location: Reports: Head, Lower Extremity, Right Worsens with: Reports: None Associated Symptoms: Reports: No Other Symptoms. Denies: Headaches, Loss of Appetite, Nausea/Vomiting, Seizure, Shortness of Breath - Related Data Allergies Allergy/AdvReac Type Severity Reaction Status Date / Time No Known Allergies Allergy Verified 12/22/19 08:26 Home Meds: Home Meds Cholecalciferol (Vitamin D3) [Vitamin D3] 1,000 unit PO DAILY 03/29/14 [History] Fluticasone/Salmeterol [Advair 250-50 Diskus] 2 puff INH BID 03/29/14 [History] Levothyroxine Sodium [Levoxyl] 50 mcg PO DAILY 03/29/14 [History] Metoprolol Tartrate 25 mg PO BID 03/29/14 [History] Multivitamin [Multi Vitamin Daily] 1 each PO DAILY 03/29/14 [History] Simvastatin [Zocor] 10 mg PO BEDTIME 03/29/14 [History] Albuterol [Proventil HFA] 2 puff INH Q4H PRN 06/10/16 [History] Ipratropium [place] 2 sprays NS DAILY 06/10/16 [History] Meloxicam 15 mg PO DAILY 08/25/18 [History] dilTIAZem HCL [Diltiazem ER] 120 mg PO DAILY 08/25/18 [History] Albuterol/Ipratropium [DuoNeb 3.0-0.5 MG/3 ML] 3 ml IH TID 12/22/19 [History] Cetirizine [ZyrTEC] 10 mg PO DAILY 12/22/19 [History] Gabapentin [Neurontin] 200 mg PO BEDTIME 12/22/19 [History] Nystatin 5 ml PO QID 12/22/19 [History] Past Medical History HEENT History: Reports: Impaired Vision Cardiovascular History: Reports: High Cholesterol, Hypertension, Syncope Other Cardiovascular History: paroxysmal atrial tachycardia, hyperlipidemia Respiratory History: Reports: Asthma Other Respiratory History: lung nodule Gastrointestinal History: Reports: GERD Other Endocrine/Metabolic History: hypothyroid Other Oncologic History: thyroid cancer Social & Family History - Caffeine Use Caffeine Use: Reports: None ED ROS GENERAL - Review of Systems Review Of Systems: See Below Constitutional: Reports: No Symptoms HEENT: Reports: No Symptoms Respiratory: Reports: No Symptoms Cardiovascular: Reports: No Symptoms Endocrine: Reports: No Symptoms GI/Abdominal: Reports: No Symptoms : Reports: No Symptoms Musculoskeletal: Reports: Other (Patient states she has right knee pain from the fall 4 out of 10) Skin: Reports: No Symptoms Neurological: Denies: Confusion, Dizziness, Headache, Numbness, Paresthesia, Pre-Existing Deficit, Syncope, Trouble Speaking, Difficulty Walking, Change in Speech, Gait Disturbance Psychiatric: Reports: No Symptoms Hematologic/Lymphatic: Reports: No Symptoms Immunologic: Reports: No Symptoms ED EXAM, HEAD INJURY - Physical Exam Exam: See Below Exam Limited By: No Limitations General Appearance: Alert, WD/WN, No Apparent Distress, Other (Patient looks well smiling cutting up talking) Head: Atraumatic, Normocephalic Nexus Criteria: No: Posterior, Midline Cervical Tenderness, Evidence of Intoxica tion, Altered Level of Consciousness, Focal Neurological Deficit, Painful Distraction Injuries Eyes: Bilateral Eye: EOMI, Normal Inspection, PERRL Ears: Normal External Exam, Normal Canal, Hearing Grossly Normal, Normal TMs Nose: Normal Inspection, Normal Mucousa, No Blood Throat/Mouth: Normal Inspection, Normal Lips, Normal Teeth, Normal Gums, Normal Oropharynx, Normal Voice, No Airway Compromise Neck: Non-Tender, Full Range of Motion, Normal Alignment, Normal Inspection, Other (No tenderness palpation full range of motion no step-offs noted). No: Tender Midline Respiratory: No Respiratory Distress, Lungs Clear, Normal Breath Sounds, No Acc essory Muscle Use, Chest Non-Tender Cardiovascular: Normal Peripheral Pulses, Regular Rate, Rhythm, No Edema, No Gallop, No JVD, No Murmur, No Rub GI/Abdominal Exam: Normal Bowel Sounds, Soft, Non-Tender, No Organomegaly, No Distention, No Abnormal Bruit, Other (No tenderness palpation over the pelvis with distraction or compression). No: Guarding, Rigid, Rebound, Tender Back Exam: Normal Inspection, Full Range of Motion. No: Paraspinal Tenderness, Vertebral Tenderness Extremities: Normal Inspection, Normal Range of Motion, Non-Tender, No Pedal Edema, Normal Capillary Refill, Other (Patient has some ecchymosis to the right forearm which she states is about 4 days old status post bumping into something exam to the lower extremities there is no tenderness palpation from the hip all the way down to the foot she has full range of motion bilateral hips knees feet ) Neurologic: livestock trader II-XII nml As Tested, No Motor/Sensory Deficits, Alert, Normal Mood/Affect, Oriented x 3, Other (Strength graded 5 of 5 bilateral equal oracle security consultant no noted edema or ecchymosis over the knees) - Arian Coma Score [place] Total: 15 Course - Vital Signs Text/Narrative:: We will check CT head CT C-spine x-ray of the knee CBC and a BMP CT head and neck no acute findings noted recheck patient she is alert and oriented x4 cranial nerves II through XII are intact she has full range of motion of all extremities no nausea or vomiting no other concerns at this time from the patient and the family. X-ray of the knee no acute findings noted Vital signs have remained within normal limits CBC within normal limits BMP noted hyperglycemia 250 Head injury instructions were given to the family with verbal understanding signs symptoms and need to return to the emergency room After discussing discharge with the patient and family and the patient having some nausea they requested that the patient be placed in observation overnight. Called primary care provider Shasha Marcial she will admit under observation for the night - Orders/Labs/Meds Orders: Active Orders 24 hr Category Date Time Status Patient Status [ADT] Stat ADT 03/23/21 21:34 Active Knee 1V or 2V Rt [CR] Stat Exams 03/23/21 19:58 Ordered Labs: Laboratory Tests 03/23/21 03/23/21 Range/Units 20:02 20:02 WBC 10.5 H (4.0-10.0) x10^3/uL RBC 4.65 (4.00-5.50) x10^6/uL Hgb 14.5 (12.0-16.0) g/dL Hct 42.0 (33.0-47.0) % MCV 90.3 (78.0-93.0) fL MCH 31.2 (26.0-32.0) pg MCHC 34.5 (32.0-36.0) g/dL RDW Coeff of Deanna 12.0 (10.0-15.0) % Plt Count 258 (130-400) x10^3/uL Immature Gran % (Auto) 0.20 (0.00-0.43) % Neut % (Auto) 80.6 H (50.0-80.0) % Lymph % (Auto) 11.7 L (25.0-50.0) % [place] % (Auto) 6.3 (2.0-11.0) % Eos % (Auto) 0.8 (0.0-4.0) % Baso % (Auto) 0.4 (0.2-1.2) % Neut # (Auto) 8.5 H (1.8-7.7) x10^3/uL Lymph # (Auto) 1.2 (1.0-4.8) x10^3/uL [place] # (Auto) 0.7 (0.0-0.8) x10^3/uL Eos # (Auto) 0.1 (0.0-0.5) x10^3/uL Baso # (Auto) 0.0 (0.0-0.2) x10^3/uL Immature Gran # (Auto) 0.02 (0.00-0.07) x10^3/uL Sodium 132 L (136-145) mmol/L Potassium 3.6 (3.5-5.1) mmol/L Chloride 94 L (98-107) mmol/L Carbon Dioxide 30 (21-32) mmol/L Anion Gap 11.6 (5-15) mmol/L BUN 14 (7-18) mg/dL Creatinine 0.8 (0.55-1.02) mg/dL Est Cr Clr Drug Dosing TNP Estimated GFR (MDRD) > 60 Glucose 250 H (70-99) mg/dL Calcium 8.3 L (8.5-10.1) mg/dL Meds: Medications Discontinued Medications Generic Name Dose Route Start Last Admin Trade Name Efrain PRN Reason Stop Dose Admin Acetaminophen 650 mg 03/23/21 21:36 Acetaminophen 325 Mg Tab PO 03/23/21 21:37 NOW ONE Ondansetron HCl 4 mg 03/23/21 21:36 Ondansetron 4 Mg Tab.Dis PO 03/23/21 21:37 ONETIME ONE Departure - Departure Time of Disposition: 21:30 Disposition: Refer to Observation Condition: Good Clinical Impression: Head injury, closed, with brief LOC, Knee pain - Discharge Information *PRESCRIPTION DRUG MONITORING PROGRAM REVIEWED*: No *COPY OF PRESCRIPTION DRUG MONITORING REPORT IN PATIENT ROSALIO: No Instructions: Head Injury, Adult, [id number] Referrals: Digna Reese, [Primary Care Provider] - Forms: ED Department Discharge Additional Instructions: Follow-up with your primary care provider in the next 24 to 48 hours Watch for any signs or symptoms of a head injury or bleeding that he had such as headache dizziness lightheadedness vision changes nausea vomiting irritability unsteadiness or anything that does not feel normal if any of the symptoms occur return here to the emergency room. You may take [id number] Tylenol 1 to 2 tablets every 4-6 hours as needed for pain for the next 2 to 3 days Return here to the emergency room if anything changes or gets worse - Problem List & Annotations (1) Head injury, closed, with brief LOC SNOMED Code(s): 09775370, 32038567 Code(s): S06.9X9A - UNSP INTRACRANIAL INJURY W LOC OF UNSP DURATION, INIT Status: Acute (2) Knee pain SNOMED Code(s): 6365975182 Code(s): M25.569 - PAIN IN UNSPECIFIED KNEE Status: Acute - My Orders Last 24 Hours: My Active Orders 03/23/21 19:58 Knee 1V or 2V Rt [CR] Stat 03/23/21 21:34 Patient Status [ADT] Stat - Assessment/Plan Admission H&P: Please use this note as an admission H&P Last 24 Hours: My Active Orders 03/23/21 19:58 Knee 1V or 2V Rt [CR] Stat 03/23/21 21:34 Patient Status [ADT] Stat
[2021-03-23 20:15] LABS: CHLORIDE,CL 94 mmol/L (98-107); SODIUM,NA 132 mmol/L (136-145)
[2021-03-23 20:16] LABS: ANION GAP 11.6 mmol/L (5-15)
--- NOTE | 2021-03-23 20:47 | CT ---
[id number] CT/CT Head WO IV EXAM: CT Head WO IV CLINICAL DATA: TRAUMA COMPARISON: CORRELATION IS MADE WITH 2019 FINDINGS: There is no mass or mass effect. There is no hemorrhage or hydrocephalus. There are no extra-axial fluid collections. There are no sites of abnormal attenuation. IMPRESSION: NO PLAIN CT EVIDENCE OF ACUTE INTRACRANIAL PROCESS. Perico Hayes MD 03/23/[id number] Thank you for allowing us to participate in the care of your patient.
--- NOTE | 2021-03-23 20:49 | CT ---
[id number] CT/CT Cervical Spine WO IV Exam: CT Cervical Spine WO IV Clinical Data: TRAUMA COMPARISON: NO PREVIOUS SIMILAR EXAM IS AVAILABLE FINDINGS: There is a spiculated 8mm left upper lobe mass on image #180, series 2 Consider follow-up There is bilateral right greater than left apical pleural thickening. There is no fracture or subluxation There are degenerative changes. IMPRESSION: NO FRACTURE OR SUBLUXATION Perico Hayes MD 03/23/[id number] Thank you for allowing us to participate in the care of your patient.
[2021-03-23] MEDS ORDERED: Ondansetron 4 MG Tab.DIS PO ONE (21:36)
[2021-03-23] MEDS ORDERED: Acetaminophen 325 MG Tab PO ONE (21:36)
[2021-03-23] MEDS ORDERED: Acetaminophen 325 MG Tab PO PRN (22:13)
[2021-03-23] MEDS ORDERED: Ondansetron 4 MG Tab.DIS PO PRN (22:13)
[2021-03-23] MEDS ORDERED: Albuterol/Ipratropium 3.0-0.5 MG/3 ML Neb Soln INH PRN (22:14)
--- NOTE | 2021-03-23 22:22 | PCM.HP.2 ---
H&P History of Present Illness - General Date of Service: 03/23/21 Admit Problem/Dx: Admission Diagnosis/Problem Admission Diagnosis/Problem Closed head injury with brief loss of consciousness Source of Information: Patient, Family History Limitations: Reports: No Limitations - History of Present Illness Initial Comments - Free Text/Narative: Mrs. Bear is an 80 yo female with PMH of HTN, COPD, chronic sinusitis, hyperlipidemia, hypothyroidism, spinal stenosis, and osteoporosis who presented to the ER for evaluation following a fall at home. She was getting home from being in [place] with her all day when she slipped on the ice and fell. She landed on her knees and then fell back and hit her head. She lost consciousness for about 1 minute. She has had 3 episodes of vomiting since. She has also continued to feel tired and lightheaded. No headache. No w/n/t in her extremities. She scraped her knee. No other lacerations. She was able to walk into the house with the assistance of her after the fall. When she continued to be lightheaded, he called EMS for transport to the ER. - Related Data Allergies/Adverse Reactions: Allergies Allergy/AdvReac Type Severity Reaction Status Date / Time No Known Allergies Allergy Verified 12/22/19 08:26 Home Medications: Home Meds Cholecalciferol (Vitamin D3) [Vitamin D3] 1,000 unit PO DAILY 03/29/14 [History] Fluticasone/Salmeterol [Advair 250-50 Diskus] 2 puff INH BID 03/29/14 [History] Levothyroxine Sodium [Levoxyl] 50 mcg PO DAILY 03/29/14 [History] Metoprolol Tartrate 25 mg PO BID 03/29/14 [History] Multivitamin [Multi Vitamin Daily] 1 each PO DAILY 03/29/14 [History] Simvastatin [Zocor] 10 mg PO BEDTIME 03/29/14 [History] Albuterol [Proventil HFA] 2 puff INH Q4H PRN 06/10/16 [History] Ipratropium [place] 2 sprays NS DAILY 06/10/16 [History] Meloxicam 15 mg PO DAILY 08/25/18 [History] dilTIAZem HCL [Diltiazem ER] 120 mg PO DAILY 08/25/18 [History] Albuterol/Ipratropium [DuoNeb 3.0-0.5 MG/3 ML] 3 ml IH TID 12/22/19 [History] Cetirizine [ZyrTEC] 10 mg PO DAILY 12/22/19 [History] Gabapentin [Neurontin] 200 mg PO BEDTIME 12/22/19 [History] Nystatin 5 ml PO QID 12/22/19 [History] Past Medical History HEENT History: Reports: Impaired Vision Cardiovascular History: Reports: High Cholesterol, Hypertension, Syncope Other Cardiovascular History: paroxysmal atrial tachycardia, hyperlipidemia Respiratory History: Reports: Asthma Other Respiratory History: lung nodule Gastrointestinal History: Reports: GERD Genitourinary History: Reports: None Musculoskeletal History: Reports: None Neurological History: Reports: None Psychiatric History: Reports: None Endocrine/Metabolic History: Reports: Hypothyroidism, Osteoporosis Hematologic History: Reports: None Immunologic History: Reports: None Other Oncologic History: thyroid cancer Dermatologic History: Reports: None - Past Surgical History HEENT Surgical History: Reports: Cataract Surgery GI Surgical History: Reports: Appendectomy, Cholecystectomy Female Surgical History: Reports: Hysterectomy, Other (See Below) (ex lap with bowel resection) Social & Family History - Family History Cardiac: Reports: CAD Oncologic: Reports: Colon - Tobacco Use Tobacco Use Status *Q: Former Tobacco User - Caffeine Use Caffeine Use: Reports: None - Alcohol Use Alcohol Use History: No Alcohol Use in Last Twelve Months: Yes Alcohol Use Frequency: Rarely - Recreational Drug Use Recreational Drug Use: No - Living Situation & Occupation Living situation: Reports: , with Spouse Occupation: Retired H&P Review of Systems - Review of Systems: Review Of Systems: See Below General: Reports: No Symptoms HEENT: Reports: No Symptoms Pulmonary: Reports: No Symptoms Cardiovascular: Reports: No Symptoms Gastrointestinal: Reports: Nausea, Vomiting. Denies: Abdominal Pain, Constipation, Diarrhea Genitourinary: Reports: No Symptoms Musculoskeletal: Reports: No Symptoms Skin: Reports: No Symptoms Psychiatric: Reports: No Symptoms Neurological: Reports: No Symptoms Hematologic/Lymphatic: Reports: No Symptoms Exam - Exam Exam: See Below - Vital Signs Weight: 72.575 kg - Exam General: Alert, Oriented, Cooperative HEENT: Conjunctiva Clear, Hearing Intact, Mucosa Moist & [place], Posterior Pharynx Clear, Pupils Equal, Pupils Reactive, TMs Clear Neck: Supple, Trachea Midline Lungs: Clear to Auscultation, Normal Respiratory Effort Cardiovascular: Regular Rate, Regular Rhythm, Normal S1, Normal S2 GI/Abdominal Exam: Normal Bowel Sounds, Soft, Non-Tender, No Organomegaly, No Distention, No Mass Extremities: Non-Tender, No Pedal Edema, Normal Capillary Refill, Other ( abrasion to right knee) Peripheral Pulses: 2+: Radial (L), Radial (R) Skin: Warm, Dry, Intact Neurological: Cranial Nerves Intact, Reflexes Equal Bilateral, Strength Equal Bilateral, Sensation Intact Neuro Extensive - Mental Status: Alert, Oriented x3 Neuro Extensive - Motor, Sensory, Reflexes: CN II-XII Intact - Patient Data Lab Results Last 24 hrs: Laboratory Results - last 24 hr 03/23/21 03/23/21 Range/Units 20:02 20:02 WBC 10.5 H (4.0-10.0) x10^3/uL RBC 4.65 (4.00-5.50) x10^6/uL Hgb 14.5 (12.0-16.0) g/dL Hct 42.0 (33.0-47.0) % MCV 90.3 (78.0-93.0) fL MCH 31.2 (26.0-32.0) pg MCHC 34.5 (32.0-36.0) g/dL RDW Coeff of Deanna 12.0 (10.0-15.0) % Plt Count 258 (130-400) x10^3/uL Immature Gran % (Auto) 0.20 (0.00-0.43) % Neut % (Auto) 80.6 H (50.0-80.0) % Lymph % (Auto) 11.7 L (25.0-50.0) % [place] % (Auto) 6.3 (2.0-11.0) % Eos % (Auto) 0.8 (0.0-4.0) % Baso % (Auto) 0.4 (0.2-1.2) % Neut # (Auto) 8.5 H (1.8-7.7) x10^3/uL Lymph # (Auto) 1.2 (1.0-4.8) x10^3/uL [place] # (Auto) 0.7 (0.0-0.8) x10^3/uL Eos # (Auto) 0.1 (0.0-0.5) x10^3/uL Baso # (Auto) 0.0 (0.0-0.2) x10^3/uL Immature Gran # (Auto) 0.02 (0.00-0.07) x10^3/uL Sodium 132 L (136-145) mmol/L Potassium 3.6 (3.5-5.1) mmol/L Chloride 94 L (98-107) mmol/L Carbon Dioxide 30 (21-32) mmol/L Anion Gap 11.6 (5-15) mmol/L BUN 14 (7-18) mg/dL Creatinine 0.8 (0.55-1.02) mg/dL Est Cr Clr Drug Dosing TNP Estimated GFR (MDRD) > 60 Glucose 250 H (70-99) mg/dL Calcium 8.3 L (8.5-10.1) mg/dL Result Diagrams: 03/23/21 20:02 03/23/21 20:02 Sepsis Event Note - Evaluation Sepsis Screening Result: No Definite Risk *Q Meaningful Use (ADM) - VTE *Q VTE Anticoagulation Contraindications: Med/TX Not Indicated/Need - Problem List (1) Concussion SNOMED Code(s): 575705339 ICD Code: S06.0X9A - CONCUSSION W LOSS OF CONSCIOUSNESS OF UNSP DURATION, INI T Status: Acute Current Visit: Yes Qualifiers: Encounter type: initial encounter Loss of consciousness presence/duration: with LOC of 30 min or less Qualified Code(s): S06.0X1A - Concussion with loss of consciousness of 30 minutes or less, initial encounter (2) Hypertension SNOMED Code(s): 64021007 ICD Code: I10 - ESSENTIAL (PRIMARY) HYPERTENSION Status: Chronic Current Visit: Yes Qualifiers: Hypertension type: primary hypertension Qualified Code(s): I10 - Essential (primary) hypertension (3) COPD (chronic obstructive pulmonary disease) SNOMED Code(s): 68056923 ICD Code: J44.9 - CHRONIC OBSTRUCTIVE PULMONARY DISEASE, UNSPECIFIED Status: Chronic Current Visit: Yes Qualifiers: COPD type: unspecified COPD Qualified Code(s): J44.9 - Chronic obstructive pulmonary disease, unspecified (4) Chronic sinusitis SNOMED Code(s): 80383133 ICD Code: J32.9 - CHRONIC SINUSITIS, UNSPECIFIED Status: Chronic Current Visit: Yes Qualifiers: Sinusitis location: unspecified location Qualified Code(s): J32.9 - Chronic sinusitis, unspecified (5) Hyperlipidemia SNOMED Code(s): 75915913 ICD Code: E78.5 - HYPERLIPIDEMIA, UNSPECIFIED Status: Chronic Current Visit: Yes Qualifiers: Hyperlipidemia type: unspecified Qualified Code(s): E78.5 - Hyperlipidemia, unspecified (6) Hypothyroidism SNOMED Code(s): 40252756 ICD Code: E03.9 - HYPOTHYROIDISM, UNSPECIFIED Status: Chronic Current Visit: Yes Qualifiers: Hypothyroidism type: acquired Qualified Code(s): E03.9 - Hypothyroidism, unspecified (7) Spinal stenosis SNOMED Code(s): 22501113 ICD Code: M48.00 - SPINAL STENOSIS, SITE UNSPECIFIED Status: Chronic Current Visit: Yes Qualifiers: Spinal region: unspecified Qualified Code(s): M48.00 - Spinal stenosis, site unspecified (8) Osteoporosis SNOMED Code(s): 50553677 ICD Code: M81.0 - AGE-RELATED OSTEOPOROSIS W/O CURRENT PATHOLOGICAL FRACTURE Status: Chronic Current Visit: Yes Qualifiers: Osteoporosis type: age-related Presence of current pathological fracture: without current pathological fracture Qualified Code(s): M81.0 - Age-related osteoporosis without current pathological fracture Problem List Initiated/Reviewed/Updated: Yes Orders Last 24hrs: Active Orders 24 hr Category Date Time Status Patient Status [ADT] Stat ADT 03/23/21 21:34 Active Neuro Check [RC] Q4H Care 03/23/21 22:17 Ordered Notify Provider Vital Signs [RC] ASDIRECTED Care 03/23/21 22:13 Ordered Oxygen Therapy [RC] PRN Care 03/23/21 22:13 Ordered RT Aerosol Therapy [RC] ASDIRECTED Care 03/23/21 22:15 Ordered Up With Assistance [RC] ASDIRECTED Care 03/23/21 22:13 Ordered VTE/DVT Education [RC] PER UNIT ROUTINE Care 03/23/21 22:13 Ordered Vital Signs [RC] Q4H Care 03/23/21 22:13 Ordered Regular Diet [DIET] Diet 03/23/21 Breakfast Ordered Knee 1V or 2V Rt [CR] Stat Exams 03/23/21 19:58 Ordered Acetaminophen [TylenoL] Med 03/23/21 22:13 Ordered 650 mg PO Q6H PRN Albuterol/Ipratropium [DuoNeb 3.0-0.5 MG/3 ML] Med 03/23/21 22:14 Ordered 3 ml INH TID PRN Gabapentin [Neurontin] Med 03/23/21 22:15 Ordered 200 mg PO BEDTIME Levothyroxine [Synthroid] Med 03/24/21 08:00 Ordered 50 mcg PO DAILY Meloxicam [Meloxicam] Med 03/24/21 08:00 Ordered 15 mg PO DAILY Metoprolol Tartrate [Lopressor] Med 03/23/21 22:15 Ordered 25 mg PO BID Ondansetron [Zofran ODT] Med 03/23/21 22:13 Ordered 4 mg PO Q6H PRN Simvastatin [Zocor] Med 03/24/21 20:00 Ordered 10 mg PO BEDTIME dilTIAZem HCL [Diltiazem 24Hr ER] Med 03/24/21 08:00 Ordered 120 mg PO DAILY Anticoagulation Contraindications VTE [AST] Per Unit Oth 03/23/21 22:13 Ordered Routine Resuscitation Status Routine Resus Stat 03/23/21 22:13 Ordered Medication Orders Acetaminophen (Acetaminophen 325 Mg Tab) 650 mg PO Q6H PRN PRN Reason: Pain (Mild 1-3)/fever Albuterol/Ipratropium (Albuterol/Ipratropium 3.0-0.5 Mg/3 Ml Neb Soln) 3 ml INH TID PRN PRN Reason: short of breath, cough Gabapentin (Gabapentin 100 Mg Cap) 200 mg PO BEDTIME NETTE Levothyroxine Sodium (Levothyroxine 50 Mcg Tab) 50 mcg PO DAILY NETTE Metoprolol Tartrate (Metoprolol Tartrate 25 Mg Tab) 25 mg PO BID NETTE Non-Formulary Medication (Diltiazem Hcl [Diltiazem 24hr Er]) 120 mg PO DAILY NETTE Non-Formulary Medication (Meloxicam [Meloxicam]) 15 mg PO DAILY NETTE Ondansetron HCl (Ondansetron 4 Mg Tab.Dis) 4 mg PO Q6H PRN PRN Reason: nausea, able to take PO Simvastatin (Simvastatin 10 Mg Tab) 10 mg PO BEDTIME NETTE Assessment/Plan Comment:: 80 yo female admitted for observation following a fall with head injury and LOC. #1 Concussion - Patient is stable and doing well at this time. - CT head/neck negative. - Will do neuro checks every 4 hours. - Zofran and tylenol PRN. - No other apparent injuries. Knee x-ray was ordered due to abrasion but she was able to ambulate after the injury so risk of fracture is low. #2 Hypertension #3 COPD #4 Sinusitis #5 Hyperlipidemia #6 Hypothyroidism #7 Spinal stenosis #8 Osteoporosis - Continue home medications. Admit to obs - anticipate d/c home tomorrow am. Code status is full - discussed on admission. No pharmacologic VTE prophylaxis given acute head injury and anticipation for admission to be <24 hours. - Mortality Measure Prognosis:: Good
[2021-03-24] MEDS ORDERED: Metoprolol Tartrate 25 MG Tab PO ONE (00:15)
[2021-03-24] MEDS ORDERED: Gabapentin 100 MG Cap PO ONE (00:15)
[2021-03-24] MEDS ORDERED: MELOXICAM 15 MG PO SCH (08:00)
[2021-03-24] MEDS ORDERED: DILTIAZEM 120 MG PO SCH (08:00)
[2021-03-24] MEDS ORDERED: Levothyroxine 50 MCG Tab**PT OWN PO SCH (08:00)
[2021-03-24] MEDS ORDERED: Metoprolol Tartrate 25 MG Tab PO SCH (09:00)
[2021-03-24 09:26] VITALS: BP 116/69; PULSE 105
--- NOTE | 2021-03-24 10:16 | CR ---
[id number] RAD/RAD Knee Right 1-2V EXAM: 2 VIEWS RIGHT KNEE. INDICATION: FALL COMPARISON: None. DISCUSSION: No fracture, dislocation or other acute osseous abnormality. 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 IMPRESSION: 1. No acute osseous abnormalities. Koffi Holman DO 03/24/21 1014 Thank you for allowing us to participate in the care of your patient.
--- NOTE | 2021-03-24 11:45 | PCM.DCSUM1 ---
Discharge Summary - Hospital Course Brief History: Mrs. Bear is an 80 yo female who presented to the ER for evaluation following a fall on the ice where she struck her head and did lose consciousness for 1 minute. - Discharge Data Discharge Date: 03/24/21 Discharge Disposition: Home, Self-Care 01 Condition: Good - Referral to Home Health Primary Care Physician: Digna Reese, DO - Discharge Diagnosis/Problem(s) (1) Concussion SNOMED Code(s): 083816303 ICD Code: S06.0X9A - CONCUSSION W LOSS OF CONSCIOUSNESS OF UNSP DURATION, INIT Status: Acute Current Visit: Yes Qualifiers: Encounter type: initial encounter Loss of consciousness presence/duration: with LOC of 30 min or less Qualified Code(s): S06.0X1A - Concussion with loss of consciousness of 30 minutes or less, initial encounter (2) Hypertension SNOMED Code(s): 21445610 ICD Code: I10 - ESSENTIAL (PRIMARY) HYPERTENSION Status: Chronic Current Visit: Yes Qualifiers: Hypertension type: primary hypertension Qualified Code(s): I10 - Essential (primary) hypertension (3) COPD (chronic obstructive pulmonary disease) SNOMED Code(s): 90476747 ICD Code: J44.9 - CHRONIC OBSTRUCTIVE PULMONARY DISEASE, UNSPECIFIED Status: Chronic Current Visit: Yes Qualifiers: COPD type: unspecified COPD Qualified Code(s): J44.9 - Chronic obstructive pulmonary disease, unspecified (4) Chronic sinusitis SNOMED Code(s): 55472060 ICD Code: J32.9 - CHRONIC SINUSITIS, UNSPECIFIED Status: Chronic Current Visit: Yes Qualifiers: Sinusitis location: unspecified location Qualified Code(s): J32.9 - Chronic sinusitis, unspecified (5) Hyperlipidemia SNOMED Code(s): 83363744 ICD Code: E78.5 - HYPERLIPIDEMIA, UNSPECIFIED Status: Chronic Current Visit: Yes Qualifiers: Hyperlipidemia type: unspecified Qualified Code(s): E78.5 - Hyperlipidemia, unspecified (6) Hypothyroidism SNOMED Code(s): 55641161 ICD Code: E03.9 - HYPOTHYROIDISM, UNSPECIFIED Status: Chronic Current Visit: Yes Qualifiers: Hypothyroidism type: acquired Qualified Code(s): E03.9 - Hypothyroidism, unspecified (7) Spinal stenosis SNOMED Code(s): 08569897 ICD Code: M48.00 - SPINAL STENOSIS, SITE UNSPECIFIED Status: Chronic Current Visit: Yes Qualifiers: Spinal region: unspecified Qualified Code(s): M48.00 - Spinal stenosis, site unspecified (8) Osteoporosis SNOMED Code(s): 96275829 ICD Code: M81.0 - AGE-RELATED OSTEOPOROSIS W/O CURRENT PATHOLOGICAL FRACTURE Status: Chronic Current Visit: Yes Qualifiers: Osteoporosis type: age-related Presence of current pathological fracture: without current pathological fracture Qualified Code(s): M81.0 - Age-related osteoporosis without current pathological fracture - Patient Summary/Data Operative Procedure(s) Performed: none Complications: none Consults: none Labs Pending at D/C: none Recommended Follow-up Testing/Procedures: none Planned Operative Procedure(s) after DC: none Hospital Course: The patient was admitted and had neuro checks. No changes. She has not had any further nausea or vomiting. No headaches. She was able to ambulate with assistance of a walker and only mild knee pain. Knee x-rays negative. She has a walker she can use at home. Home meds were continued. Hospitalization was otherwise uncomplicated. She will be discharged home today in the care of her . She will follow-up in clinic next week, sooner PRN. - Patient Instructions Diet: Usual Diet as Tolerated - Discharge Plan *PRESCRIPTION DRUG MONITORING PROGRAM REVIEWED*: No *COPY OF PRESCRIPTION DRUG MONITORING REPORT IN PATIENT ROSALIO: No Home Medications: Home Meds Cholecalciferol (Vitamin D3) [Vitamin D3] 1,000 unit PO DAILY 03/29/14 [History] Fluticasone/Salmeterol [Advair 250-50] 2 puff INH BID 03/29/14 [History] Levothyroxine Sodium [Levoxyl] 50 mcg PO DAILY 03/29/14 [History] Metoprolol Tartrate 25 mg PO BID 03/29/14 [History] Simvastatin [Zocor] 10 mg PO BEDTIME 03/29/14 [History] Albuterol [Proventil HFA] 2 puff INH Q4H PRN 06/10/16 [History] Ipratropium [place] 2 sprays NS BID 06/10/16 [History] Meloxicam 15 mg PO DAILY 08/25/18 [History] dilTIAZem HCL [Diltiazem 24Hr ER] 120 mg PO DAILY 08/25/18 [History] Albuterol/Ipratropium [DuoNeb 3.0-0.5 MG/3 ML] 3 ml IH TID 12/22/19 [History] Cetirizine [ZyrTEC] 10 mg PO DAILY 12/22/19 [History] Gabapentin [Neurontin] 200 mg PO BEDTIME 12/22/19 [History] Fluticasone/Umeclidin/Vilanter [Trelegy Ellipta 100-62.5-25] 1 puff PO DAILY 03/23/21 [History] valACYclovir HCl [valACYclovir] 2 tab PO BID 03/23/21 [History] Patient Handouts: Head Injury, Adult, [id number] Forms: ED Department Discharge Referrals: Shasha Maxwell MD [Physician] - - Discharge Summary/Plan Comment DC Time >30 min.: No Total # of Minutes for Discharge Time: 15 - General Info Date of Service: 03/24/21 Subjective Update: Patient is feeling fine this morning. Slept well. No headache. No w/n/t. No nausea or vomiting. Ate breakfast without any issue. Walked with a walker with only mild knee pain. - Review of Systems General: Reports: No Symptoms HEENT: Reports: No Symptoms Pulmonary: Reports: No Symptoms Cardiovascular: Reports: No Symptoms Gastrointestinal: Reports: No Symptoms Genitourinary: Reports: No Symptoms Musculoskeletal: Reports: Leg Pain Skin: Reports: No Symptoms Neurological: Reports: No Symptoms - Patient Data Vitals - Most Recent: Last Vital Signs Temp 37.3 C 03/24/21 09:19 Pulse 105 H 03/24/21 09:19 Resp 19 03/24/21 09:19 BP 116/69 03/24/21 09:19 Pulse Ox 94 L 03/24/21 09:19 Weight - Most Recent: 63.049 kg I&O - Last 24 hours: Intake & Output 03/23/21 03/24/21 03/24/21 22:59 06:59 14:59 Intake Total 100 480 Output Total 350 Balance -250 480 Lab Results - Last 24 hrs: Laboratory Results - last 24 hr 03/23/21 03/23/21 03/24/21 Range/Units 20:02 20:02 08:58 WBC 10.5 H (4.0-10.0) x10^3/uL RBC 4.65 (4.00-5.50) x10^6/uL Hgb 14.5 (12.0-16.0) g/dL Hct 42.0 (33.0-47.0) % MCV 90.3 (78.0-93.0) fL MCH 31.2 (26.0-32.0) pg MCHC 34.5 (32.0-36.0) g/dL RDW Coeff of Deanna 12.0 (10.0-15.0) % Plt Count 258 (130-400) x10^3/uL Immature Gran % (Auto) 0.20 (0.00-0.43) % Neut % (Auto) 80.6 H (50.0-80.0) % Lymph % (Auto) 11.7 L (25.0-50.0) % [place] % (Auto) 6.3 (2.0-11.0) % Eos % (Auto) 0.8 (0.0-4.0) % Baso % (Auto) 0.4 (0.2-1.2) % Neut # (Auto) 8.5 H (1.8-7.7) x10^3/uL Lymph # (Auto) 1.2 (1.0-4.8) x10^3/uL [place] # (Auto) 0.7 (0.0-0.8) x10^3/uL Eos # (Auto) 0.1 (0.0-0.5) x10^3/uL Baso # (Auto) 0.0 (0.0-0.2) x10^3/uL Immature Gran # (Auto) 0.02 (0.00-0.07) x10^3/uL Sodium 132 L (136-145) mmol/L Potassium 3.6 (3.5-5.1) mmol/L Chloride 94 L (98-107) mmol/L Carbon Dioxide 30 (21-32) mmol/L Anion Gap 11.6 (5-15) mmol/L BUN 14 (7-18) mg/dL Creatinine 0.8 (0.55-1.02) mg/dL Est Cr Clr Drug Dosing TNP Estimated GFR (MDRD) > 60 Glucose 250 H (70-99) mg/dL Calcium 8.3 L (8.5-10.1) mg/dL Urine Color Yellow (YELLOW) Urine Appearance Clear (CLEAR) Urine pH 7.5 (5.0-8.0) Ur Specific [place] 1.015 Urine Protein Negative (NEGATIVE) mg/dL Urine Glucose (UA) 100 H (NEGATIVE) mg/dL Urine Ketones Negative (NEGATIVE) mg/dL Urine Occult Blood Negative (NEGATIVE) Urine Nitrite Negative (NEGATIVE) Urine Bilirubin Negative (NEGATIVE) Urine Urobilinogen 0.2 (0.2) EU/dL Ur Leukocyte Esterase Trace H (NEGATIVE) U Hyaline Cast (Auto) Rare Urine RBC Not seen (NOT SEEN) /HPF Urine WBC 0-5 (NOT SEEN) /HPF Ur Squamous Epith Cells Rare (NOT SEEN) /HPF Urine Bacteria Not seen (NOT SEEN) /HPF Urine Mucus Not seen (NOT SEEN) /LPF Urine Yeast (Budding) Rare (NONE - FEW) /HPF Med Orders - Current: Current Medications Acetaminophen (Acetaminophen 325 Mg Tab) 650 mg PO Q6H PRN PRN Reason: Pain (Mild 1-3)/fever Albuterol/Ipratropium (Albuterol/Ipratropium 3.0-0.5 Mg/3 Ml Neb Soln) 3 ml INH TID PRN PRN Reason: short of breath, cough Diltiazem HCl (Diltiazem 120 Mg Cap.CdPt Own) 120 mg PO DAILY [facility] Last Admin: 03/24/21 07:50 Dose: 120 mg Documented by: Gabapentin (Gabapentin 100 Mg Cap) 200 mg PO BEDTIME [facility] Levothyroxine Sodium (Levothyroxine 50 Mcg TabPt Own) 50 mcg PO DAILY [facility] Last Admin: 03/24/21 07:51 Dose: 50 mcg Documented by: Metoprolol Tartrate (Metoprolol Tartrate 25 Mg Tab) 25 mg PO BID [facility] Last Admin: 03/24/21 09:17 Dose: 25 mg Documented by: Meloxicam 15 Mg (TabletPt Own) 15 mg PO DAILY [facility] Last Admin: 03/24/21 07:52 Dose: 15 mg Documented by: Ondansetron HCl (Ondansetron 4 Mg Tab.Dis) 4 mg PO Q6H PRN PRN Reason: nausea, able to take PO Simvastatin (Simvastatin 10 Mg TabPt Own) 10 mg PO BEDTIME NETTE Discontinued Medications Acetaminophen (Acetaminophen 325 Mg Tab) 650 mg PO NOW ONE Stop: 03/23/21 21:37 Last Admin: 03/24/21 00:09 Dose: 650 mg Documented by: Gabapentin (Gabapentin 100 Mg Cap) 200 mg PO ONETIME ONE Stop: 03/24/21 00:16 Last Admin: 03/24/21 00:18 Dose: 200 mg Documented by: Metoprolol Tartrate (Metoprolol Tartrate 25 Mg Tab) 25 mg PO ONETIME ONE Stop: 03/24/21 00:16 Last Admin: 03/24/21 00:17 Dose: 25 mg Documented by: Ondansetron HCl (Ondansetron 4 Mg Tab.Dis) 4 mg PO ONETIME ONE Stop: 03/23/21 21:37 Last Admin: 03/24/21 00:08 Dose: 4 mg Documented by: - Exam General: Reports: Alert, Oriented, Cooperative, No Acute Distress HEENT: Reports: Mucous Membr. Moist/[place] Neck: Reports: Supple, Trachea Midline, No Thyromegaly. Denies: Lymphadenopathy Lungs: Reports: Clear to Auscultation, Normal Respiratory Effort Cardiovascular: Reports: Regular Rate, Regular Rhythm, No Murmurs GI/Abdominal Exam: Normal Bowel Sounds, Soft, Non-Tender, No Organomegaly, No Distention, No Mass Extremities: Normal Inspection, Normal Range of Motion, Non-Tender, No Pedal Edema, Normal Capillary Refill Skin: Reports: Warm, Dry, Intact Neurological: Reports: No New Focal Deficit *Q Meaningful Use (DIS) - VTE *Q VTE Anticoagulation Contraindications: Med/TX Not Indicated/Need
[2021-03-24] MEDS ORDERED: Gabapentin 100 MG Cap PO SCH (20:00)
[2021-03-24] MEDS ORDERED: SIMVASTATIN 10 MG PO SCH (20:00)
== END 2021-03-24 12:20 | disposition home or self-care (01) ==
LOC: VM.ED 19:49 → VM.MS 21:34
PROVIDERS: ADMIT Physician Assistant Medical; ATTEND Family Medicine
DX: S06.0X1A Concussion with loss of consciousness of 30 minutes or less, initial encounter (principal); I10 Essential (primary) hypertension; J44.9 Chronic obstructive pulmonary disease, unspecified; E78.5 Hyperlipidemia, unspecified; E03.9 Hypothyroidism, unspecified; M81.0 Age-related osteoporosis without current pathological fracture; J32.9 Chronic sinusitis, unspecified; M48.00 Spinal stenosis, site unspecified; Z79.899 Other long term (current) drug therapy; W00.0XXA Fall on same level due to ice and snow, initial encounter
CPT/HCPCS: 36415; 70450; 72125; 73560-RT; 80048; 81001; 85025; 99284; 99285-25; A9270-GY; G0378

== ENCOUNTER 2021-03-24 18:20 | Observation (INO) | payer MEDICARE, OTHER ==
--- NOTE | 2021-03-24 18:42 | EDM.PDOC ---
ED HPI GENERAL MEDICAL PROBLEM - General Chief Complaint: Neuro Symptoms/Deficits Stated Complaint: lethargy Time Seen by Provider: 03/24/21 18:25 Source of Information: Reports: Patient History Limitations: Reports: No Limitations - History of Present Illness INITIAL COMMENTS - FREE TEXT/NARRATIVE: Amanda is an 80 year old female who presents to ER per EMS after concerns from that he had difficulty waking her from a nap this afternoon. Patient had fallen yesterday on the ice, was admitted observation to monitor neuro status. Labs and CT last night were negative. Returned home around 1400 today. She states she laid down as she had not slept well last night in the hospital because "it was so cold" and was tired today around 1500. He awoke her around 1730 and states was difficult to get her to wake up. Due to the fall last night and weakness in her legs today, he contacted his family and granddaughter who is a doctor called EMS for her to be reevaluated. has not noted confusion. Legs are weak and she is using a walker today which is unusual for her. She relates it is because of landing on her knees yesterday and from "lying around so much". Onset: Today Duration: Hour(s): Location: Reports: Generalized Associated Symptoms: Reports: Malaise, Weakness. Denies: Confusion, Chest Pain, Cough, Fever/Chills, Headaches, Loss of Appetite, Nausea/Vomiting, Shortness of Breath - Related Data Allergies Allergy/AdvReac Type Severity Reaction Status Date / Time No Known Allergies Allergy Verified 03/24/21 18:36 Home Meds: Home Meds Cholecalciferol (Vitamin D3) [Vitamin D3] 1,000 unit PO DAILY 03/29/14 [History] Fluticasone/Salmeterol [Advair 250-50] 2 puff INH BID 03/29/14 [History] Levothyroxine Sodium [Levoxyl] 50 mcg PO DAILY 03/29/14 [History] Metoprolol Tartrate 25 mg PO BID 03/29/14 [History] Simvastatin [Zocor] 10 mg PO BEDTIME 03/29/14 [History] Albuterol [Proventil HFA] 2 puff INH Q4H PRN 06/10/16 [History] Ipratropium [place] 2 sprays NS BID 06/10/16 [History] Meloxicam 15 mg PO DAILY 08/25/18 [History] dilTIAZem HCL [Diltiazem 24Hr ER] 120 mg PO DAILY 08/25/18 [History] Albuterol/Ipratropium [DuoNeb 3.0-0.5 MG/3 ML] 3 ml IH TID 12/22/19 [History] Cetirizine [ZyrTEC] 10 mg PO DAILY 12/22/19 [History] Gabapentin [Neurontin] 200 mg PO BEDTIME 12/22/19 [History] Fluticasone/Umeclidin/Vilanter [Trelegy Ellipta 100-62.5-25] 1 puff PO DAILY [History] valACYclovir HCl [valACYclovir] 2 tab PO BID 03/23/21 [History] Past Medical History HEENT History: Reports: Impaired Vision Cardiovascular History: Reports: High Cholesterol, Hypertension, Syncope Other Cardiovascular History: paroxysmal atrial tachycardia, hyperlipidemia Respiratory History: Reports: Asthma Other Respiratory History: lung nodule Gastrointestinal History: Reports: GERD Genitourinary History: Reports: None Musculoskeletal History: Reports: None Neurological History: Reports: None Psychiatric History: Reports: None Endocrine/Metabolic History: Reports: Hypothyroidism, Osteoporosis Hematologic History: Reports: None Immunologic History: Reports: None Other Oncologic History: thyroid cancer Dermatologic History: Reports: None - Past Surgical History HEENT Surgical History: Reports: Cataract Surgery GI Surgical History: Reports: Appendectomy, Cholecystectomy Female Surgical History: Reports: Hysterectomy, Other (See Below) Social & Family History - Family History Cardiac: Reports: CAD Oncologic: Reports: Colon - Tobacco Use Tobacco Use Status *Q: Unknown Ever Used Tobacco - Caffeine Use Caffeine Use: Reports: Coffee - Living Situation & Occupation Living situation: Reports: , with Spouse Occupation: Retired ED ROS GENERAL - Review of Systems Review Of Systems: See Below Constitutional: Reports: Malaise, Weakness, Fatigue. Denies: Fever, Chills HEENT: Denies: Ear Pain, Nosebleed, Rhinitis, Throat Pain, Vertigo Respiratory: Denies: Shortness of Breath, Cough Cardiovascular: Denies: Chest Pain, Edema, Lightheadedness Endocrine: Denies: Fatigue GI/Abdominal: Denies: Abdominal Pain, Constipation, Diarrhea, Nausea, Vomiting : Reports: No Symptoms Musculoskeletal: Reports: No Symptoms Skin: Reports: Other (abrasion to right knee) Neurological: Reports: Weakness ED EXAM, NEURO - Physical Exam Exam: See Below Exam Limited By: No Limitations General Appearance: Alert, WD/WN, No Apparent Distress Eye Exam: Bilateral Eye: EOMI, PERRL Ears: Normal External Exam, Normal TMs Nose: Normal Inspection, Normal Mucosa, No Blood Throat/Mouth: Normal Inspection, Normal Oropharynx Head Exam: Normocephalic Neck: Normal Inspection, Supple, Non-Tender Respiratory/Chest: No Respiratory Distress, Lungs Clear, Normal Breath Sounds Cardiovascular: Regular Rate, Rhythm GI/Abdominal: Normal Bowel Sounds, Soft, Non-Tender Neurological: Alert, Normal Mood/Affect, Normal Dorsiflexion, CN II-XII Intact, Normal Plantar Flexion, Normal Gait, Normal Reflexes, No Motor/Sensory Deficits, Oriented x 3 Extremities: Normal Inspection, No Pedal Edema Skin Exam: Warm, Dry Course - Vital Signs Last Recorded V/S: Last Vital Signs Temp 97.7 F 03/24/21 18:20 Pulse 113 H 03/24/21 18:20 Resp 16 03/24/21 18:20 BP 137/69 03/24/21 18:20 Pulse Ox 91 L 03/24/21 18:20 - Orders/Labs/Meds Orders: Active Orders 24 hr Category Date Time Status Patient Status Manage Transfer [TRANSFER] Routine ADT 03/24/21 19:56 Ordered Chest 1V Frontal [CR] Stat Exams 03/24/21 19:29 Ordered CULTURE URINE [RM] Stat Lab 03/24/21 19:32 Received Labs: Laboratory Tests 03/24/21 03/24/21 03/24/21 Range/Units 18:45 18:45 18:45 WBC 14.5 H (4.0-10.0) x10^3/uL RBC 4.70 (4.00-5.50) x10^6/uL Hgb 14.7 (12.0-16.0) g/dL Hct 42.1 (33.0-47.0) % MCV 89.6 (78.0-93.0) fL MCH 31.3 (26.0-32.0) pg MCHC 34.9 (32.0-36.0) g/dL RDW Coeff of Deanna 12.1 (10.0-15.0) % Plt Count 245 (130-400) x10^3/uL Immature Gran % (Auto) 0.30 (0.00-0.43) % Neut % (Auto) 82.9 H (50.0-80.0) % Lymph % (Auto) 4.6 L (25.0-50.0) % [place] % (Auto) 11.7 H (2.0-11.0) % Eos % (Auto) 0.3 (0.0-4.0) % Baso % (Auto) 0.2 (0.2-1.2) % Neut # (Auto) 12.0 H (1.8-7.7) x10^3/uL Lymph # (Auto) 0.7 L (1.0-4.8) x10^3/uL [place] # (Auto) 1.7 H (0.0-0.8) x10^3/uL Eos # (Auto) 0.1 (0.0-0.5) x10^3/uL Baso # (Auto) 0.0 (0.0-0.2) x10^3/uL Immature Gran # (Auto) 0.04 (0.00-0.07) x10^3/uL Sodium 132 L (136-145) mmol/L Potassium 4.1 (3.5-5.1) mmol/L Chloride 96 L (98-107) mmol/L Carbon Dioxide 26 (21-32) mmol/L Anion Gap 14.1 (5-15) mmol/L BUN 14 (7-18) mg/dL Creatinine 0.9 (0.55-1.02) mg/dL Est Cr Clr Drug Dosing 43.37 mL/min Estimated GFR (MDRD) 60 Glucose 118 H (70-99) mg/dL Calcium 8.9 (8.5-10.1) mg/dL Corrected Calcium 9.3 (8.5-10.1) mg/dL Total Bilirubin 0.9 (0.2-1.0) mg/dL AST 18 (15-37) U/L ALT 23 (14-59) U/L Alkaline Phosphatase 63 (46-116) U/L C-Reactive Protein 5.4 H (<=0.9) mg/dL Total Protein 6.5 (6.4-8.2) g/dL Albumin 3.5 (3.4-5.0) g/dL Globulin 3.0 Albumin/Globulin Ratio 1.17 Urine Color (YELLOW) Urine Appearance (CLEAR) Urine pH (5.0-8.0) Ur Specific [place] Urine Protein (NEGATIVE) mg/dL Urine Glucose (UA) (NEGATIVE) mg/dL Urine Ketones (NEGATIVE) mg/dL Urine Occult Blood (NEGATIVE) Urine Nitrite (NEGATIVE) Urine Bilirubin (NEGATIVE) Urine Urobilinogen (0.2) EU/dL Ur Leukocyte Esterase (NEGATIVE) Urine RBC (NOT SEEN) /HPF Urine WBC (NOT SEEN) /HPF Ur Squamous Epith Cells (NOT SEEN) /HPF Urine Bacteria (NOT SEEN) /HPF Urine Mucus (NOT SEEN) /LPF 03/24/21 Range/Units 19:32 WBC (4.0-10.0) x10^3/uL RBC (4.00-5.50) x10^6/uL Hgb (12.0-16.0) g/dL Hct (33.0-47.0) % MCV (78.0-93.0) fL MCH (26.0-32.0) pg MCHC (32.0-36.0) g/dL RDW Coeff of Deanna (10.0-15.0) % Plt Count (130-400) x10^3/uL Immature Gran % (Auto) (0.00-0.43) % Neut % (Auto) (50.0-80.0) % Lymph % (Auto) (25.0-50.0) % [place] % (Auto) (2.0-11.0) % Eos % (Auto) (0.0-4.0) % Baso % (Auto) (0.2-1.2) % Neut # (Auto) (1.8-7.7) x10^3/uL Lymph # (Auto) (1.0-4.8) x10^3/uL [place] # (Auto) (0.0-0.8) x10^3/uL Eos # (Auto) (0.0-0.5) x10^3/uL Baso # (Auto) (0.0-0.2) x10^3/uL Immature Gran # (Auto) (0.00-0.07) x10^3/uL Sodium (136-145) mmol/L Potassium (3.5-5.1) mmol/L Chloride (98-107) mmol/L Carbon Dioxide (21-32) mmol/L Anion Gap (5-15) mmol/L BUN (7-18) mg/dL Creatinine (0.55-1.02) mg/dL Est Cr Clr Drug Dosing mL/min Estimated GFR (MDRD) Glucose (70-99) mg/dL Calcium (8.5-10.1) mg/dL Corrected Calcium (8.5-10.1) mg/dL Total Bilirubin (0.2-1.0) mg/dL AST (15-37) U/L ALT (14-59) U/L Alkaline Phosphatase (46-116) U/L C-Reactive Protein (<=0.9) mg/dL Total Protein (6.4-8.2) g/dL Albumin (3.4-5.0) g/dL Globulin Albumin/Globulin Ratio Urine Color Yellow (YELLOW) Urine Appearance Slightly cloudy H (CLEAR) Urine pH 6.5 (5.0-8.0) Ur Specific [place] 1.020 Urine Protein Negative (NEGATIVE) mg/dL Urine Glucose (UA) Negative (NEGATIVE) mg/dL Urine Ketones Negative (NEGATIVE) mg/dL Urine Occult Blood Negative (NEGATIVE) Urine Nitrite Negative (NEGATIVE) Urine Bilirubin Negative (NEGATIVE) Urine Urobilinogen 0.2 (0.2) EU/dL Ur Leukocyte Esterase Moderate H (NEGATIVE) Urine RBC 0-5 (NOT SEEN) /HPF Urine WBC 30-40 H (NOT SEEN) /HPF Ur Squamous Epith Cells Few H (NOT SEEN) /HPF Urine Bacteria Occasional H (NOT SEEN) /HPF Urine Mucus Few H (NOT SEEN) /LPF - Re-Assessments/Exams Free Text/Narrative Re-Assessment/Exam: 03/24/21 20:01 WBC is elevated with high neutrophils. CRP up to 5.4 UA positive. Did note small amount of leukocytes this am, no bacteria. Now changed to moderate leukocytes and few bacteria. Will culture. CT head is negative. Awaiting chest xray report. Discussed with Dr. Plata as is coupon manifest clerk as well as patient's granddaughter. Agrees with admission to observation. Departure - Departure Time of Disposition: 20:04 Disposition: Refer to Observation Condition: Fair Clinical Impression: UTI (urinary tract infection) - Discharge Information *PRESCRIPTION DRUG MONITORING PROGRAM REVIEWED*: No *COPY OF PRESCRIPTION DRUG MONITORING REPORT IN PATIENT ROSALIO: No Referrals: Shasha Maxwell MD [Primary Care Provider] - Forms: ED Department Discharge Sepsis Event Note (ED) - Focused Exam Vital Signs: Vital Signs Temp Pulse Resp BP Pulse Ox 03/24/21 18:20 97.7 F 113 H 16 137/69 91 L - Problem List & Annotations (1) Weakness SNOMED Code(s): 32772571 Code(s): R53.1 - WEAKNESS Status: Acute Priority: High Current Visit: Yes (2) UTI (urinary tract infection) SNOMED Code(s): 75586309 Code(s): N39.0 - URINARY TRACT INFECTION, SITE NOT SPECIFIED Status: Acute Priority: High Current Visit: Yes Qualifiers: Urinary tract infection type: acute cystitis - Problem List Review Problem List Initiated/Reviewed/Updated: Yes - My Orders Last 24 Hours: My Active Orders 03/24/21 19:29 Chest 1V Frontal [CR] Stat 03/24/21 19:32 CULTURE URINE [RM] Stat 03/24/21 19:56 Patient Status Manage Transfer [TRANSFER] Routine - Assessment/Plan Admission H&P: Please use this note as an admission H&P Last 24 Hours: My Active Orders 03/24/21 19:29 Chest 1V Frontal [CR] Stat 03/24/21 19:32 CULTURE URINE [RM] Stat 03/24/21 19:56 Patient Status Manage Transfer [TRANSFER] Routine Assessment:: UTI Weakness Plan: Admit to observation. Start Rocephin. Low dose IV fluids as has had minimal oral intake today.
[2021-03-24 19:12] LABS: ANION GAP 14.1 mmol/L (5-15)
--- NOTE | 2021-03-24 19:24 | CT ---
[id number] CT/CT Head WO IV EXAM: NONCONTRAST HEAD CT INDICATION: LETHARGY 24 HOURS AFTER FALL COMPARISON: March 23, 2021. DISCUSSION: There is mild generalized atrophy. Mild multifocal white matter hypoattenuation is nonspecific, but generally ascribed to chronic small vessel ischemia. No mass effect or midline shift. No acute hemorrhage or extra-axial fluid collection. No acute territorial infarct is identified. A limited look at the orbits and paranasal sinuses is unremarkable. IMPRESSION: 1. No acute findings. Ted Palafox MD 03/24/21 0883 Thank you for allowing us to participate in the care of your patient.
--- NOTE | 2021-03-24 20:16 | CR ---
[id number] RAD/RAD Chest PA or AP 1V EXAM: FRONTAL CHEST INDICATION: Elevate WBC COMPARISON: None. DISCUSSION: Multiple hair clips and proximal left overlie the mid and left lower chest. Hyperinflation compatible with COPD. Mild right perihilar and basilar atelectasis and/or infiltrates. Borderline thickening of the right paratracheal stripe. Unless clinically indicated sooner, a 6-8 week follow-up examination is suggested to ensure resolution and exclude other underlying pathology. Subtle nodular opacity in the left lung apex better seen on a recent cervical spine CT. IMPRESSION: 1. Mild right basilar and hilar atelectasis and/or infiltrates. Follow-up is suggested to ensure resolution. Ted Palafox MD 03/24/212014 Thank you for allowing us to participate in the care of your patient.
[2021-03-24] MEDS ORDERED: Ondansetron 4 MG Tab.DIS PO PRN (20:24)
[2021-03-24] MEDS ORDERED: Ondansetron 4 MG/2 ML SDV IV PRN (20:24)
[2021-03-24] MEDS ORDERED: Acetaminophen 325 MG Tab PO PRN (20:24)
[2021-03-24] MEDS ORDERED: Albuterol 0.083% 2.5 MG/3 ML Neb Soln INH PRN (20:29)
[2021-03-24] MEDS ORDERED: valACYclovir 1,000 MG Tab PO SCH (20:30)
[2021-03-24] MEDS: cefTRIAXone 1 GM Vial IVPUSH SCH (22:37)
[2021-03-24] MEDS: Azithromycin 500 MG in Sodium Chloride 0.9% 250 ML IV SCH (22:37)
[2021-03-24] MEDS: Gabapentin 100 MG Cap PO SCH (22:46)
[2021-03-24] MEDS: Simvastatin 10 MG Tab PO SCH (22:46)
[2021-03-24] MEDS: Metoprolol Tartrate 25 MG Tab PO SCH (22:46)
[2021-03-25] MEDS: Levothyroxine 50 MCG Tab PO SCH (06:06)
[2021-03-25 07:15] LABS: CHLORIDE,CL 99 mmol/L (98-107); SODIUM,NA 132 mmol/L (136-145)
[2021-03-25] MEDS: Albuterol/Ipratropium 3.0-0.5 MG/3 ML Neb Soln INH SCH ×3 (07:29→20:12)
[2021-03-25] MEDS: Metoprolol Tartrate 25 MG Tab PO SCH ×2 (07:50→20:11)
[2021-03-25] MEDS: Cholecalciferol (Vitamin D3) 25 MCG Tab PO SCH (07:51)
[2021-03-25] MEDS: Meloxicam 7.5 MG Tab PO SCH (07:51)
[2021-03-25] MEDS: Diltiazem 120 MG Cap.CD PO SCH (07:51)
[2021-03-25] MEDS: Loratadine 10 MG Tab PO SCH (07:52)
[2021-03-25] MEDS ORDERED: Non-Formulary Medication 1 Each (Fluticasone/Salmeterol 14 PUFF/DISKUS Diskus) INH SCH (08:00)
--- NOTE | 2021-03-25 11:33 | PCM.PN ---
- General Info Date of Service: 03/25/21 Admission Dx/Problem (Free Text): Pt. reports feeling improved, but still weak. Pt. states that she feels less weak. She has been able to get up and use the toilet without assistance. She denies any fever or chills. No nausea, vomiting or diarrhea. Denies any cough or shortness of breath. Pt. relates to increased dysuria and frequency. She continues to get IV normal saline at 100ml/hr. She relates to continued R lower extremity discomfort, but states that she is able to bear weight. Functional Status: Reports: Pain Controlled - Review of Systems General: Reports: No Symptoms HEENT: Reports: No Symptoms Pulmonary: Reports: No Symptoms Cardiovascular: Reports: No Symptoms Gastrointestinal: Reports: No Symptoms Genitourinary: Reports: No Symptoms Musculoskeletal: Reports: No Symptoms Skin: Reports: No Symptoms Neurological: Reports: No Symptoms Psychiatric: Reports: No Symptoms - Patient Data Vitals - Most Recent: Last Vital Signs Temp 36.9 C 03/25/21 05:59 Pulse 100 03/25/21 07:51 Resp 20 03/25/21 05:59 BP 111/64 03/25/21 07:51 Pulse Ox 90 L 03/25/21 07:31 Weight - Most Recent: 62.596 kg I&O - Last 24 Hours: Intake & Output 03/24/21 03/25/21 03/25/21 22:59 06:59 14:59 Intake Total 978 360 Output Total 250 Balance 728 360 Lab Results Last 24 Hours: Laboratory Results - last 24 hr 03/24/21 03/24/21 03/24/21 Range/Units 18:45 18:45 18:45 WBC 14.5 H (4.0-10.0) x10^3/uL RBC 4.70 (4.00-5.50) x10^6/uL Hgb 14.7 (12.0-16.0) g/dL Hct 42.1 (33.0-47.0) % MCV 89.6 (78.0-93.0) fL MCH 31.3 (26.0-32.0) pg MCHC 34.9 (32.0-36.0) g/dL RDW Coeff of Deanna 12.1 (10.0-15.0) % Plt Count 245 (130-400) x10^3/uL Immature Gran % (Auto) 0.30 (0.00-0.43) % Neut % (Auto) 82.9 H (50.0-80.0) % Lymph % (Auto) 4.6 L (25.0-50.0) % [place] % (Auto) 11.7 H (2.0-11.0) % Eos % (Auto) 0.3 (0.0-4.0) % Baso % (Auto) 0.2 (0.2-1.2) % Neut # (Auto) 12.0 H (1.8-7.7) x10^3/uL Lymph # (Auto) 0.7 L (1.0-4.8) x10^3/uL [place] # (Auto) 1.7 H (0.0-0.8) x10^3/uL Eos # (Auto) 0.1 (0.0-0.5) x10^3/uL Baso # (Auto) 0.0 (0.0-0.2) x10^3/uL Immature Gran # (Auto) 0.04 (0.00-0.07) x10^3/uL Add Manual Diff Neutrophils % (Manual) (50-80) % Band Neutrophils % (0-6) % Lymphocytes % (Manual) (25-50) % Monocytes % (Manual) (2-11) % Eosinophils % (Manual) (0-4) % Absolute Neutrophils (1.8-7.7) x10^3/uL Lymphocytes # (Manual) (1.0-4.8) x10^3/uL Monocytes # (Manual) (0.0-0.8) x10^3/uL Eosinophils # (Manual) (0.0-0.5) x10^3/uL Platelet Estimate Sodium 132 L (136-145) mmol/L Potassium 4.1 (3.5-5.1) mmol/L Chloride 96 L (98-107) mmol/L Carbon Dioxide 26 (21-32) mmol/L Anion Gap 14.1 (5-15) mmol/L BUN 14 (7-18) mg/dL Creatinine 0.9 (0.55-1.02) mg/dL Est Cr Clr Drug Dosing 43.37 mL/min Estimated GFR (MDRD) 60 Glucose 118 H (70-99) mg/dL Calcium 8.9 (8.5-10.1) mg/dL Corrected Calcium 9.3 (8.5-10.1) mg/dL Total Bilirubin 0.9 (0.2-1.0) mg/dL AST 18 (15-37) U/L ALT 23 (14-59) U/L Alkaline Phosphatase 63 (46-116) U/L C-Reactive Protein 5.4 H (<=0.9) mg/dL Total Protein 6.5 (6.4-8.2) g/dL Albumin 3.5 (3.4-5.0) g/dL Globulin 3.0 Albumin/Globulin Ratio 1.17 Urine Color (YELLOW) Urine Appearance (CLEAR) Urine pH (5.0-8.0) Ur Specific [place] Urine Protein (NEGATIVE) mg/dL Urine Glucose (UA) (NEGATIVE) mg/dL Urine Ketones (NEGATIVE) mg/dL Urine Occult Blood (NEGATIVE) Urine Nitrite (NEGATIVE) Urine Bilirubin (NEGATIVE) Urine Urobilinogen (0.2) EU/dL Ur Leukocyte Esterase (NEGATIVE) Urine RBC (NOT SEEN) /HPF Urine WBC (NOT SEEN) /HPF Ur Squamous Epith Cells (NOT SEEN) /HPF Urine Bacteria (NOT SEEN) /HPF Urine Mucus (NOT SEEN) /LPF SARS CoV-2 RNA Rapid EDWARD (NEGATIVE) 03/24/21 03/24/21 03/25/21 Range/Units 19:32 21:02 06:12 WBC 10.9 H (4.0-10.0) x10^3/uL RBC 4.29 (4.00-5.50) x10^6/uL Hgb 13.2 D (12.0-16.0) g/dL Hct 38.9 (33.0-47.0) % MCV 90.7 (78.0-93.0) fL MCH 30.8 (26.0-32.0) pg MCHC 33.9 (32.0-36.0) g/dL RDW Coeff of Deanna 12.6 (10.0-15.0) % Plt Count 220 (130-400) x10^3/uL Immature Gran % (Auto) (0.00-0.43) % Neut % (Auto) (50.0-80.0) % Lymph % (Auto) (25.0-50.0) % [place] % (Auto) (2.0-11.0) % Eos % (Auto) (0.0-4.0) % Baso % (Auto) (0.2-1.2) % Neut # (Auto) (1.8-7.7) x10^3/uL Lymph # (Auto) (1.0-4.8) x10^3/uL [place] # (Auto) (0.0-0.8) x10^3/uL Eos # (Auto) (0.0-0.5) x10^3/uL Baso # (Auto) (0.0-0.2) x10^3/uL Immature Gran # (Auto) (0.00-0.07) x10^3/uL Add Manual Diff Yes Neutrophils % (Manual) 78 (50-80) % Band Neutrophils % 1 (0-6) % Lymphocytes % (Manual) 11 L (25-50) % Monocytes % (Manual) 9 (2-11) % Eosinophils % (Manual) 1 (0-4) % Absolute Neutrophils 8.6 H (1.8-7.7) x10^3/uL Lymphocytes # (Manual) 1.2 (1.0-4.8) x10^3/uL Monocytes # (Manual) 1.0 H (0.0-0.8) x10^3/uL Eosinophils # (Manual) 0.1 (0.0-0.5) x10^3/uL Platelet Estimate Adequate Sodium (136-145) mmol/L Potassium (3.5-5.1) mmol/L Chloride (98-107) mmol/L Carbon Dioxide (21-32) mmol/L Anion Gap (5-15) mmol/L BUN (7-18) mg/dL Creatinine (0.55-1.02) mg/dL Est Cr Clr Drug Dosing mL/min Estimated GFR (MDRD) Glucose (70-99) mg/dL Calcium (8.5-10.1) mg/dL Corrected Calcium (8.5-10.1) mg/dL Total Bilirubin (0.2-1.0) mg/dL AST (15-37) U/L ALT (14-59) U/L Alkaline Phosphatase (46-116) U/L C-Reactive Protein (<=0.9) mg/dL Total Protein (6.4-8.2) g/dL Albumin (3.4-5.0) g/dL Globulin Albumin/Globulin Ratio Urine Color Yellow (YELLOW) Urine Appearance Slightly cloudy H (CLEAR) Urine pH 6.5 (5.0-8.0) Ur Specific [place] 1.020 Urine Protein Negative (NEGATIVE) mg/dL Urine Glucose (UA) Negative (NEGATIVE) mg/dL Urine Ketones Negative (NEGATIVE) mg/dL Urine Occult Blood Negative (NEGATIVE) Urine Nitrite Negative (NEGATIVE) Urine Bilirubin Negative (NEGATIVE) Urine Urobilinogen 0.2 (0.2) EU/dL Ur Leukocyte Esterase Moderate H (NEGATIVE) Urine RBC 0-5 (NOT SEEN) /HPF Urine WBC 30-40 H (NOT SEEN) /HPF Ur Squamous Epith Cells Few H (NOT SEEN) /HPF Urine Bacteria Occasional H (NOT SEEN) /HPF Urine Mucus Few H (NOT SEEN) /LPF SARS CoV-2 RNA Rapid EDWARD Negative (NEGATIVE) 03/25/21 Range/Units 06:12 WBC (4.0-10.0) x10^3/uL RBC (4.00-5.50) x10^6/uL Hgb (12.0-16.0) g/dL Hct (33.0-47.0) % MCV (78.0-93.0) fL MCH (26.0-32.0) pg MCHC (32.0-36.0) g/dL RDW Coeff of Deanna (10.0-15.0) % Plt Count (130-400) x10^3/uL Immature Gran % (Auto) (0.00-0.43) % Neut % (Auto) (50.0-80.0) % Lymph % (Auto) (25.0-50.0) % [place] % (Auto) (2.0-11.0) % Eos % (Auto) (0.0-4.0) % Baso % (Auto) (0.2-1.2) % Neut # (Auto) (1.8-7.7) x10^3/uL Lymph # (Auto) (1.0-4.8) x10^3/uL [place] # (Auto) (0.0-0.8) x10^3/uL Eos # (Auto) (0.0-0.5) x10^3/uL Baso # (Auto) (0.0-0.2) x10^3/uL Immature Gran # (Auto) (0.00-0.07) x10^3/uL Add Manual Diff Neutrophils % (Manual) (50-80) % Band Neutrophils % (0-6) % Lymphocytes % (Manual) (25-50) % Monocytes % (Manual) (2-11) % Eosinophils % (Manual) (0-4) % Absolute Neutrophils (1.8-7.7) x10^3/uL Lymphocytes # (Manual) (1.0-4.8) x10^3/uL Monocytes # (Manual) (0.0-0.8) x10^3/uL Eosinophils # (Manual) (0.0-0.5) x10^3/uL Platelet Estimate Sodium 132 L (136-145) mmol/L Potassium 4.0 (3.5-5.1) mmol/L Chloride 99 (98-107) mmol/L Carbon Dioxide 25 (21-32) mmol/L Anion Gap 12.0 (5-15) mmol/L BUN 11 (7-18) mg/dL Creatinine 0.8 (0.55-1.02) mg/dL Est Cr Clr Drug Dosing 48.79 mL/min Estimated GFR (MDRD) > 60 Glucose 95 (70-99) mg/dL Calcium 8.3 L (8.5-10.1) mg/dL Corrected Calcium (8.5-10.1) mg/dL Total Bilirubin (0.2-1.0) mg/dL AST (15-37) U/L ALT (14-59) U/L Alkaline Phosphatase (46-116) U/L C-Reactive Protein 10.6 H (<=0.9) mg/dL Total Protein (6.4-8.2) g/dL Albumin (3.4-5.0) g/dL Globulin Albumin/Globulin Ratio Urine Color (YELLOW) Urine Appearance (CLEAR) Urine pH (5.0-8.0) Ur Specific [place] Urine Protein (NEGATIVE) mg/dL Urine Glucose (UA) (NEGATIVE) mg/dL Urine Ketones (NEGATIVE) mg/dL Urine Occult Blood (NEGATIVE) Urine Nitrite (NEGATIVE) Urine Bilirubin (NEGATIVE) Urine Urobilinogen (0.2) EU/dL Ur Leukocyte Esterase (NEGATIVE) Urine RBC (NOT SEEN) /HPF Urine WBC (NOT SEEN) /HPF Ur Squamous Epith Cells (NOT SEEN) /HPF Urine Bacteria (NOT SEEN) /HPF Urine Mucus (NOT SEEN) /LPF SARS CoV-2 RNA Rapid EDWARD (NEGATIVE) Ruben Results Last 24 Hours: Microbiology 03/24/21 19:32 Urine Culture - Preliminary Urine, Clean Catch Streptococcus Species Med Orders - Current: Current Medications Acetaminophen (Acetaminophen 325 Mg Tab) 650 mg PO Q4H PRN PRN Reason: Pain (Mild 1-3)/fever Albuterol (Albuterol 0.083% 2.5 Mg/3 Ml Neb Soln) 2.5 mg INH Q4H PRN PRN Reason: Wheezing Albuterol/Ipratropium (Albuterol/Ipratropium 3.0-0.5 Mg/3 Ml Neb Soln) 3 ml INH TIDRT [facility] Last Admin: 03/25/21 07:29 Dose: 3 ml Documented by: Ceftriaxone Sodium (Ceftriaxone 1 Gm Vial) 1 gm IVPUSH DAILY@2100 [facility] Last Admin: 03/24/21 22:37 Dose: 1 gm Documented by: Cholecalciferol (Cholecalciferol (Vitamin D3) 25 Mcg Tab) 25 mcg PO DAILY [facility] Last Admin: 03/25/21 07:51 Dose: 25 mcg Documented by: Diltiazem HCl (Diltiazem 120 Mg Cap.Cd) 120 mg PO DAILY [facility] Last Admin: 03/25/21 07:51 Dose: 120 mg Documented by: Gabapentin (Gabapentin 100 Mg Cap) 200 mg PO BEDTIME [facility] Last Admin: 03/24/21 22:46 Dose: 200 mg Documented by: Azithromycin 500 mg/ Sodium (Chloride) 250 mls @ 250 mls/hr IV DAILY@2100 [facility] Last Admin: 03/24/21 22:37 Dose: 250 mls/hr Documented by: Sodium Chloride (Normal Saline) 1,000 mls @ 100 mls/hr IV ASDIRECTED [facility] Levothyroxine Sodium (Levothyroxine 50 Mcg Tab) 50 mcg PO ACBREAKFAST [facility] Last Admin: 03/25/21 06:06 Dose: 50 mcg Documented by: Loratadine (Loratadine 10 Mg Tab) 10 mg PO DAILY [facility] Last Admin: 03/25/21 07:52 Dose: 10 mg Documented by: Meloxicam (Meloxicam 7.5 Mg Tab) 15 mg PO DAILY [facility] Last Admin: 03/25/21 07:51 Dose: 15 mg Documented by: Metoprolol Tartrate (Metoprolol Tartrate 25 Mg Tab) 25 mg PO BID [facility] Last Admin: 03/25/21 07:50 Dose: 25 mg Documented by: Non-Formulary Medication (Fluticasone/Umeclidin/Vilanter) 1 puff PO DAILY [facility] Non-Formulary Medication (Ipratropium [place] [Ipratropium [place]]) 2 sprays NS BID [facility] Ondansetron HCl (Ondansetron 4 Mg Tab.Dis) 4 mg PO Q4H PRN PRN Reason: nausea, able to take PO Ondansetron HCl (Ondansetron 4 Mg/2 Ml Sdv) 4 mg IV Q4H PRN PRN Reason: Nausea/Vomiting Simvastatin (Simvastatin 10 Mg Tab) 10 mg PO BEDTIME [facility] Last Admin: 03/24/21 22:46 Dose: 10 mg Documented by: Discontinued Medications Non-Formulary Medication (Fluticasone/Salmeterol) 2 puff INH BID [facility] Last Admin: 03/25/21 10:13 Dose: Not Given Documented by: Valacyclovir HCl (Valacyclovir 1,000 Mg Tab) mg PO BID [facility] - Exam General: Alert, Oriented HEENT: Pupils Equal, Pupils Reactive, EOMI, Mucous Membr. Moist/[place] Neck: Supple Lungs: Clear to Auscultation, Normal Respiratory Effort Cardiovascular: Regular Rate, Regular Rhythm GI/Abdominal Exam: Normal Bowel Sounds, Soft, Non-Tender, No Organomegaly, No Distention, No Abnormal Bruit, No Mass, Pelvis Stable (Female) Exam: Deferred Back Exam: Normal Inspection, Full Range of Motion Extremities: Normal Inspection, Normal Range of Motion, Non-Tender, No Pedal Edema, Normal Capillary Refill Peripheral Pulses: 4+: Radial (L) Skin: Warm, Dry, Intact Neurological: No New Focal Deficit Psy/Mental Status: Alert, Normal Affect, Normal Mood - Patient Data Lab Results Last 24 hrs: Laboratory Results - last 24 hr 03/24/21 03/24/21 03/24/21 Range/Units 18:45 18:45 18:45 WBC 14.5 H (4.0-10.0) x10^3/uL RBC 4.70 (4.00-5.50) x10^6/uL Hgb 14.7 (12.0-16.0) g/dL Hct 42.1 (33.0-47.0) % MCV 89.6 (78.0-93.0) fL MCH 31.3 (26.0-32.0) pg MCHC 34.9 (32.0-36.0) g/dL RDW Coeff of Deanna 12.1 (10.0-15.0) % Plt Count 245 (130-400) x10^3/uL Immature Gran % (Auto) 0.30 (0.00-0.43) % Neut % (Auto) 82.9 H (50.0-80.0) % Lymph % (Auto) 4.6 L (25.0-50.0) % [place] % (Auto) 11.7 H (2.0-11.0) % Eos % (Auto) 0.3 (0.0-4.0) % Baso % (Auto) 0.2 (0.2-1.2) % Neut # (Auto) 12.0 H (1.8-7.7) x10^3/uL Lymph # (Auto) 0.7 L (1.0-4.8) x10^3/uL [place] # (Auto) 1.7 H (0.0-0.8) x10^3/uL Eos # (Auto) 0.1 (0.0-0.5) x10^3/uL Baso # (Auto) 0.0 (0.0-0.2) x10^3/uL Immature Gran # (Auto) 0.04 (0.00-0.07) x10^3/uL Add Manual Diff Neutrophils % (Manual) (50-80) % Band Neutrophils % (0-6) % Lymphocytes % (Manual) (25-50) % Monocytes % (Manual) (2-11) % Eosinophils % (Manual) (0-4) % Absolute Neutrophils (1.8-7.7) x10^3/uL Lymphocytes # (Manual) (1.0-4.8) x10^3/uL Monocytes # (Manual) (0.0-0.8) x10^3/uL Eosinophils # (Manual) (0.0-0.5) x10^3/uL Platelet Estimate Sodium 132 L (136-145) mmol/L Potassium 4.1 (3.5-5.1) mmol/L Chloride 96 L (98-107) mmol/L Carbon Dioxide 26 (21-32) mmol/L Anion Gap 14.1 (5-15) mmol/L BUN 14 (7-18) mg/dL Creatinine 0.9 (0.55-1.02) mg/dL Est Cr Clr Drug Dosing 43.37 mL/min Estimated GFR (MDRD) 60 Glucose 118 H (70-99) mg/dL Calcium 8.9 (8.5-10.1) mg/dL Corrected Calcium 9.3 (8.5-10.1) mg/dL Total Bilirubin 0.9 (0.2-1.0) mg/dL AST 18 (15-37) U/L ALT 23 (14-59) U/L Alkaline Phosphatase 63 (46-116) U/L C-Reactive Protein 5.4 H (<=0.9) mg/dL Total Protein 6.5 (6.4-8.2) g/dL Albumin 3.5 (3.4-5.0) g/dL Globulin 3.0 Albumin/Globulin Ratio 1.17 Urine Color (YELLOW) Urine Appearance (CLEAR) Urine pH (5.0-8.0) Ur Specific [place] Urine Protein (NEGATIVE) mg/dL Urine Glucose (UA) (NEGATIVE) mg/dL Urine Ketones (NEGATIVE) mg/dL Urine Occult Blood (NEGATIVE) Urine Nitrite (NEGATIVE) Urine Bilirubin (NEGATIVE) Urine Urobilinogen (0.2) EU/dL Ur Leukocyte Esterase (NEGATIVE) Urine RBC (NOT SEEN) /HPF Urine WBC (NOT SEEN) /HPF Ur Squamous Epith Cells (NOT SEEN) /HPF Urine Bacteria (NOT SEEN) /HPF Urine Mucus (NOT SEEN) /LPF SARS CoV-2 RNA Rapid EDWARD (NEGATIVE) 03/24/21 03/24/21 03/25/21 Range/Units 19:32 21:02 06:12 WBC 10.9 H (4.0-10.0) x10^3/uL RBC 4.29 (4.00-5.50) x10^6/uL Hgb 13.2 D (12.0-16.0) g/dL Hct 38.9 (33.0-47.0) % MCV 90.7 (78.0-93.0) fL MCH 30.8 (26.0-32.0) pg MCHC 33.9 (32.0-36.0) g/dL RDW Coeff of Deanna 12.6 (10.0-15.0) % Plt Count 220 (130-400) x10^3/uL Immature Gran % (Auto) (0.00-0.43) % Neut % (Auto) (50.0-80.0) % Lymph % (Auto) (25.0-50.0) % [place] % (Auto) (2.0-11.0) % Eos % (Auto) (0.0-4.0) % Baso % (Auto) (0.2-1.2) % Neut # (Auto) (1.8-7.7) x10^3/uL Lymph # (Auto) (1.0-4.8) x10^3/uL [place] # (Auto) (0.0-0.8) x10^3/uL Eos # (Auto) (0.0-0.5) x10^3/uL Baso # (Auto) (0.0-0.2) x10^3/uL Immature Gran # (Auto) (0.00-0.07) x10^3/uL Add Manual Diff Yes Neutrophils % (Manual) 78 (50-80) % Band Neutrophils % 1 (0-6) % Lymphocytes % (Manual) 11 L (25-50) % Monocytes % (Manual) 9 (2-11) % Eosinophils % (Manual) 1 (0-4) % Absolute Neutrophils 8.6 H (1.8-7.7) x10^3/uL Lymphocytes # (Manual) 1.2 (1.0-4.8) x10^3/uL Monocytes # (Manual) 1.0 H (0.0-0.8) x10^3/uL Eosinophils # (Manual) 0.1 (0.0-0.5) x10^3/uL Platelet Estimate Adequate Sodium (136-145) mmol/L Potassium (3.5-5.1) mmol/L Chloride (98-107) mmol/L Carbon Dioxide (21-32) mmol/L Anion Gap (5-15) mmol/L BUN (7-18) mg/dL Creatinine (0.55-1.02) mg/dL Est Cr Clr Drug Dosing mL/min Estimated GFR (MDRD) Glucose (70-99) mg/dL Calcium (8.5-10.1) mg/dL Corrected Calcium (8.5-10.1) mg/dL Total Bilirubin (0.2-1.0) mg/dL AST (15-37) U/L ALT (14-59) U/L Alkaline Phosphatase (46-116) U/L C-Reactive Protein (<=0.9) mg/dL Total Protein (6.4-8.2) g/dL Albumin (3.4-5.0) g/dL Globulin Albumin/Globulin Ratio Urine Color Yellow (YELLOW) Urine Appearance Slightly cloudy H (CLEAR) Urine pH 6.5 (5.0-8.0) Ur Specific [place] 1.020 Urine Protein Negative (NEGATIVE) mg/dL Urine Glucose (UA) Negative (NEGATIVE) mg/dL Urine Ketones Negative (NEGATIVE) mg/dL Urine Occult Blood Negative (NEGATIVE) Urine Nitrite Negative (NEGATIVE) Urine Bilirubin Negative (NEGATIVE) Urine Urobilinogen 0.2 (0.2) EU/dL Ur Leukocyte Esterase Moderate H (NEGATIVE) Urine RBC 0-5 (NOT SEEN) /HPF Urine WBC 30-40 H (NOT SEEN) /HPF Ur Squamous Epith Cells Few H (NOT SEEN) /HPF Urine Bacteria Occasional H (NOT SEEN) /HPF Urine Mucus Few H (NOT SEEN) /LPF SARS CoV-2 RNA Rapid EDWARD Negative (NEGATIVE) 03/25/21 Range/Units 06:12 WBC (4.0-10.0) x10^3/uL RBC (4.00-5.50) x10^6/uL Hgb (12.0-16.0) g/dL Hct (33.0-47.0) % MCV (78.0-93.0) fL MCH (26.0-32.0) pg MCHC (32.0-36.0) g/dL RDW Coeff of Deanna (10.0-15.0) % Plt Count (130-400) x10^3/uL Immature Gran % (Auto) (0.00-0.43) % Neut % (Auto) (50.0-80.0) % Lymph % (Auto) (25.0-50.0) % [place] % (Auto) (2.0-11.0) % Eos % (Auto) (0.0-4.0) % Baso % (Auto) (0.2-1.2) % Neut # (Auto) (1.8-7.7) x10^3/uL Lymph # (Auto) (1.0-4.8) x10^3/uL [place] # (Auto) (0.0-0.8) x10^3/uL Eos # (Auto) (0.0-0.5) x10^3/uL Baso # (Auto) (0.0-0.2) x10^3/uL Immature Gran # (Auto) (0.00-0.07) x10^3/uL Add Manual Diff Neutrophils % (Manual) (50-80) % Band Neutrophils % (0-6) % Lymphocytes % (Manual) (25-50) % Monocytes % (Manual) (2-11) % Eosinophils % (Manual) (0-4) % Absolute Neutrophils (1.8-7.7) x10^3/uL Lymphocytes # (Manual) (1.0-4.8) x10^3/uL Monocytes # (Manual) (0.0-0.8) x10^3/uL Eosinophils # (Manual) (0.0-0.5) x10^3/uL Platelet Estimate Sodium 132 L (136-145) mmol/L Potassium 4.0 (3.5-5.1) mmol/L Chloride 99 (98-107) mmol/L Carbon Dioxide 25 (21-32) mmol/L Anion Gap 12.0 (5-15) mmol/L BUN 11 (7-18) mg/dL Creatinine 0.8 (0.55-1.02) mg/dL Est Cr Clr Drug Dosing 48.79 mL/min Estimated GFR (MDRD) > 60 Glucose 95 (70-99) mg/dL Calcium 8.3 L (8.5-10.1) mg/dL Corrected Calcium (8.5-10.1) mg/dL Total Bilirubin (0.2-1.0) mg/dL AST (15-37) U/L ALT (14-59) U/L Alkaline Phosphatase (46-116) U/L C-Reactive Protein 10.6 H (<=0.9) mg/dL Total Protein (6.4-8.2) g/dL Albumin (3.4-5.0) g/dL Globulin Albumin/Globulin Ratio Urine Color (YELLOW) Urine Appearance (CLEAR) Urine pH (5.0-8.0) Ur Specific [place] Urine Protein (NEGATIVE) mg/dL Urine Glucose (UA) (NEGATIVE) mg/dL Urine Ketones (NEGATIVE) mg/dL Urine Occult Blood (NEGATIVE) Urine Nitrite (NEGATIVE) Urine Bilirubin (NEGATIVE) Urine Urobilinogen (0.2) EU/dL Ur Leukocyte Esterase (NEGATIVE) Urine RBC (NOT SEEN) /HPF Urine WBC (NOT SEEN) /HPF Ur Squamous Epith Cells (NOT SEEN) /HPF Urine Bacteria (NOT SEEN) /HPF Urine Mucus (NOT SEEN) /LPF SARS CoV-2 RNA Rapid [place] (NEGATIVE) Result Diagrams: 03/25/21 06:12 03/25/21 06:12 Ruben Results Last 24 hrs: Microbiology 03/24/21 19:32 Urine Culture - Preliminary Urine, Clean Catch Streptococcus Species Sepsis Event Note - Evaluation Sepsis Screening Result: No Definite Risk - Focused Exam Vital Signs: Vital Signs Temp Pulse Pulse Resp BP BP Pulse Ox 03/25/21 07:51 100 111/64 03/25/21 07:50 100 111/64 03/25/21 07:31 03/25/21 05:59 36.9 C 100 20 111/64 91 L 03/25/21 02:00 37.6 C 96 18 102/47 L 93 L Pulse Ox 03/25/21 07:51 03/25/21 07:50 03/25/21 07:31 90 L 03/25/21 05:59 03/25/21 02:00 - Problem List Review Problem List Initiated/Reviewed/Updated: Yes - My Orders Last 24 Hours: My Active Orders 03/25/21 09:29 Consult to Physical Therapy [PT Evaluation and Treatment] [CONS] Routine - Plan Plan:: Continue admission until tomorrow on observation status. Continue IV rocephin and azithromycin. IV fluids at 100ml/hr. PT referral made for patient to work on ambulation. Anticipate discharge tomorrow.
[2021-03-25] MEDS: Sodium Chloride 0.9% 1,000 ML IV SCH ×2 (13:02→23:00)
[2021-03-25] MEDS: FLUTICASONE PO SCH (14:00)
[2021-03-25] MEDS: VILANTEROL PO SCH (14:00)
[2021-03-25] MEDS: UMECLIDIN PO SCH (14:00)
[2021-03-25] MEDS: Simvastatin 10 MG Tab PO SCH (20:11)
[2021-03-25] MEDS: Gabapentin 100 MG Cap PO SCH (20:11)
[2021-03-25] MEDS: cefTRIAXone 1 GM Vial IVPUSH SCH (20:12)
[2021-03-25] MEDS: IPRATROPIUM BROMIDE 0.06% NAS SCH (20:13)
[2021-03-25] MEDS: Azithromycin 500 MG in Sodium Chloride 0.9% 250 ML IV SCH (20:57)
[2021-03-26] MEDS: Levothyroxine 50 MCG Tab PO SCH (06:14)
[2021-03-26] MEDS: Albuterol/Ipratropium 3.0-0.5 MG/3 ML Neb Soln INH SCH (06:15)
[2021-03-26 06:27] VITALS: BP 134/77; PULSE 101
[2021-03-26] MEDS: Meloxicam 7.5 MG Tab PO SCH (07:57)
[2021-03-26] MEDS: Metoprolol Tartrate 25 MG Tab PO SCH (07:57)
[2021-03-26] MEDS: Diltiazem 120 MG Cap.CD PO SCH (07:57)
[2021-03-26] MEDS: IPRATROPIUM BROMIDE 0.06% NAS SCH (07:58)
[2021-03-26] MEDS: VILANTEROL PO SCH (07:58)
[2021-03-26] MEDS: UMECLIDIN PO SCH (07:58)
[2021-03-26] MEDS: Loratadine 10 MG Tab PO SCH (07:58)
[2021-03-26] MEDS: Cholecalciferol (Vitamin D3) 25 MCG Tab PO SCH (07:58)
[2021-03-26] MEDS: FLUTICASONE PO SCH (07:58)
[2021-03-26] MEDS: Sodium Chloride 0.9% 1,000 ML IV SCH (08:23)
--- NOTE | 2021-03-27 10:35 | PCM.DCSUM1 ---
Discharge Summary - Hospital Course Free Text/Narrative:: Pt. was admitted 03/24 with weakness, increased somnolence, and difficulty with ambulation secondary to UTI and R basilar and hilar CAP. Pt. was treated with IV rocephin and azithromycin. She has been ambulating and states that her strength has much improved. She is able to get to the bathroom on her own. She denies any significant shortness of breath. Denies any chest pain or palpitations. Appetite has been normal. Pt. did have a head CT on admission to ER which was negative. Pt. has not exhibited any focal neuro symptoms during her stay in the hospital. Diagnosis: Stroke: No - Discharge Data Discharge Date: 03/26/21 Discharge Disposition: Home, Self-Care 01 Condition: Good - Referral to Home Health Primary Care Physician: Shasha Maxwell MD - Discharge Diagnosis/Problem(s) (1) Pneumonia SNOMED Code(s): 995611441 ICD Code: J18.9 - PNEUMONIA, UNSPECIFIED ORGANISM Status: Acute Qualifiers: Laterality: bilateral Lung location: lower lobe of lung (2) UTI (urinary tract infection) SNOMED Code(s): 88902053 ICD Code: N39.0 - URINARY TRACT INFECTION, SITE NOT SPECIFIED Status: Acute Priority: High Qualifiers: Urinary tract infection type: acute cystitis (3) Weakness SNOMED Code(s): 91994884 ICD Code: R53.1 - WEAKNESS Status: Acute Priority: High - Patient Summary/Data Consults: Consultations 03/25/21 09:29 Consult to Physical Therapy [PT Evaluation and Treatment] [CONS] Routine - Discharge Plan *PRESCRIPTION DRUG MONITORING PROGRAM REVIEWED*: No *COPY OF PRESCRIPTION DRUG MONITORING REPORT IN PATIENT ROSALIO: No Home Medications: Home Meds Cholecalciferol (Vitamin D3) [Vitamin D3] 1,000 unit PO DAILY 03/29/14 [History] Levothyroxine Sodium [Levoxyl] 50 mcg PO DAILY 03/29/14 [History] Metoprolol Tartrate 25 mg PO BID 03/29/14 [History] Simvastatin [Zocor] 10 mg PO BEDTIME 03/29/14 [History] Albuterol [Proventil HFA] 2 puff INH Q4H PRN 06/10/16 [History] Ipratropium [place] 2 sprays NS BID 06/10/16 [History] Meloxicam 15 mg PO DAILY 08/25/18 [History] dilTIAZem HCL [Diltiazem 24Hr ER] 120 mg PO DAILY 08/25/18 [History] Albuterol/Ipratropium [DuoNeb 3.0-0.5 MG/3 ML] 3 ml IH TID 12/22/19 [History] Cetirizine [ZyrTEC] 10 mg PO DAILY 12/22/19 [History] Gabapentin [Neurontin] 200 mg PO BEDTIME 12/22/19 [History] Fluticasone/Umeclidin/Vilanter [Trelegy Ellipta 100-62.5-25] 1 puff PO DAILY 03/23/21 [History] Forms: ED Department Discharge Referrals: Shasha Maxwell MD [Primary Care Provider] - - Discharge Summary/Plan Comment DC Time >30 min.: Yes Total # of Minutes for Discharge Time: 45 Discharge Summary/Plan Comment: Pt. was discharged. Scripts for azithromycin 500mg daily and augmentin 875mg twice daily were called into pharmacy. Recheck in clinic in 10-14 days. Ambulation was encouraged. Advised to drink plenty of fluids. Return to ER if increased shortness of breath, chest pain, lightheadedness. - General Info Date of Service: 03/27/21 Functional Status: Reports: Pain Controlled - Review of Systems General: Reports: Weakness (improving) HEENT: Reports: No Symptoms Pulmonary: Reports: No Symptoms Cardiovascular: Reports: No Symptoms Gastrointestinal: Reports: No Symptoms Genitourinary: Reports: No Symptoms Musculoskeletal: Reports: No Symptoms Skin: Reports: No Symptoms Neurological: Reports: No Symptoms Psychiatric: Reports: No Symptoms - Patient Data Vitals - Most Recent: Last Vital Signs Temp 37.1 C 03/26/21 06:26 Pulse 101 H 03/26/21 07:57 Resp 22 H 03/26/21 06:26 BP 134/77 03/26/21 07:57 Pulse Ox 91 L 03/26/21 07:14 Weight - Most Recent: 62.596 kg ARNOLDO Results - Last 24 hrs: Microbiology 03/24/21 19:32 Urine Culture - Final Urine, Clean Catch MIXED POSITIVE JULES DAY 2 Med Orders - Current: Current Medications Discontinued Medications Acetaminophen (Acetaminophen 325 Mg Tab) 650 mg PO Q4H PRN PRN Reason: Pain (Mild 1-3)/fever Last Admin: 03/25/21 18:53 Dose: 650 mg Documented by: Albuterol (Albuterol 0.083% 2.5 Mg/3 Ml Neb Soln) 2.5 mg INH Q4H PRN PRN Reason: Wheezing Albuterol/Ipratropium (Albuterol/Ipratropium 3.0-0.5 Mg/3 Ml Neb Soln) 3 ml INH TIDRT [facility] Last Admin: 03/26/21 06:15 Dose: 3 ml Documented by: Ceftriaxone Sodium (Ceftriaxone 1 Gm Vial) 1 gm IVPUSH DAILY@2100 [facility] Last Admin: 03/25/21 20:12 Dose: 1 gm Documented by: Cholecalciferol (Cholecalciferol (Vitamin D3) 25 Mcg Tab) 25 mcg PO DAILY [facility] Last Admin: 03/26/21 07:58 Dose: 25 mcg Documented by: Diltiazem HCl (Diltiazem 120 Mg Cap.Cd) 120 mg PO DAILY [facility] Last Admin: 03/26/21 07:57 Dose: 120 mg Documented by: Gabapentin (Gabapentin 100 Mg Cap) 200 mg PO BEDTIME [facility] Last Admin: 03/25/21 20:11 Dose: 200 mg Documented by: Azithromycin 500 mg/ Sodium (Chloride) 250 mls @ 250 mls/hr IV DAILY@2100 [facility] Last Admin: 03/25/21 20:57 Dose: 250 mls/hr Documented by: Sodium Chloride (Normal Saline) 1,000 mls @ 100 mls/hr IV ASDIRECTED [facility] Last Admin: 03/26/21 08:23 Dose: 100 mls/hr Documented by: Levothyroxine Sodium (Levothyroxine 50 Mcg Tab) 50 mcg PO ACBREAKFAST [facility] Last Admin: 03/26/21 06:14 Dose: 50 mcg Documented by: Loratadine (Loratadine 10 Mg Tab) 10 mg PO DAILY [facility] Last Admin: 03/26/21 07:58 Dose: 10 mg Documented by: Meloxicam (Meloxicam 7.5 Mg Tab) 15 mg PO DAILY [facility] Last Admin: 03/26/21 07:57 Dose: 15 mg Documented by: Metoprolol Tartrate (Metoprolol Tartrate 25 Mg Tab) 25 mg PO BID [facility] Last Admin: 03/26/21 07:57 Dose: 25 mg Documented by: Non-Formulary Medication (Fluticasone/Salmeterol) 2 puff INH BID [facility] Last Admin: 03/25/21 10:13 Dose: Not Given Documented by: Fluticasone/Umeclidin/Vilanterol 100/62.5/25 ( Trelegy) 1 puff PO DAILY [facility] Last Admin: 03/26/21 07:58 Dose: Not Given Documented by: Ipratropium [place] 0.06% Nasal [place] ( Own Supply) 2 sprays MATTHEW BID [facility] Last Admin: 03/26/21 07:58 Dose: Not Given Documented by: Ondansetron HCl (Ondansetron 4 Mg Tab.Dis) 4 mg PO Q4H PRN PRN Reason: nausea, able to take PO Ondansetron HCl (Ondansetron 4 Mg/2 Ml Sdv) 4 mg IV Q4H PRN PRN Reason: Nausea/Vomiting Simvastatin (Simvastatin 10 Mg Tab) 10 mg PO BEDTIME [facility] Last Admin: 03/25/21 20:11 Dose: 10 mg Documented by: Valacyclovir HCl (Valacyclovir 1,000 Mg Tab) mg PO BID NETTE - Exam General: Reports: Alert, Oriented Neck: Reports: Supple Lungs: Reports: Decreased Breath Sounds Cardiovascular: Reports: Regular Rate, Regular Rhythm GI/Abdominal Exam: Soft, Non-Tender, No Distention, No Mass (Female) Exam: Deferred Rectal (Female) Exam: Deferred Extremities: Normal Inspection, Normal Range of Motion, No Pedal Edema, Normal Capillary Refill Skin: Reports: Warm, Dry, Intact Neurological: Reports: No New Focal Deficit Psy/Mental Status: Reports: Alert, Normal Affect, Normal Mood
== END 2021-03-26 10:45 | disposition home or self-care (01) ==
LOC: VM.ED 18:20 → VM.MS 19:56
PROVIDERS: ADMIT Physician Assistant Medical; ATTEND Physician Assistant Medical
DX: R53.1 Weakness (principal); N39.0 Urinary tract infection, site not specified; J18.9 Pneumonia, unspecified organism; E78.00 Pure hypercholesterolemia, unspecified; I10 Essential (primary) hypertension; E03.9 Hypothyroidism, unspecified; M81.0 Age-related osteoporosis without current pathological fracture; K21.9 Gastro-esophageal reflux disease without esophagitis; Z20.822 Contact with and (suspected) exposure to COVID-19; Z79.899 Other long term (current) drug therapy; Z79.890 Hormone replacement therapy; Z98.890 Other specified postprocedural states; Z90.49 Acquired absence of other specified parts of digestive tract; W00.0XXA Fall on same level due to ice and snow, initial encounter
CPT/HCPCS: 36415; 70450; 71045; 80048; 80053; 81001; 85025; 86140; 87086; 94640; 94760; 96365; 96375; 96376; 97116-GP; 97161-GP; 99285-25; A9270-GY; G0378; J0456; J0696; J7030; J7050; J7620-GY; U0002

== ENCOUNTER 2021-11-09 19:19 | Emergency (ER) | payer MEDICARE, OTHER ==
[2021-11-09] MEDS ORDERED: Sodium Chloride 0.9% 10 ML Syringe FLUSH PRN (19:45)
[2021-11-09 20:13] LABS: CHLORIDE,CL 97 mmol/L (98-107); SODIUM,NA 133 mmol/L (136-145)
[2021-11-09 20:15] LABS: ANION GAP 10.2 mmol/L (5-15); ESTIMATED GFR 86 mL/min (>=60)
[2021-11-09 20:16] VITALS: BP 193/91; PULSE 83
[2021-11-09 20:32] LABS: CORONAVIRUS COVID-19 NAA NEGATIVE (NEGATIVE)
[2021-11-09 20:33] LABS: RESPIRATORY SYNCYTIAL VIR NAA NEGATIVE (NEGATIVE)
[2021-11-09] MEDS: cefTRIAXone 2 GM Vial IVPUSH ONE (21:03)
== END 2021-11-09 21:19 | disposition home or self-care (01) ==
LOC: VM.ED 19:19
DX: J18.9 Pneumonia, unspecified organism (principal); E78.00 Pure hypercholesterolemia, unspecified; I10 Essential (primary) hypertension; J44.9 Chronic obstructive pulmonary disease, unspecified; E03.9 Hypothyroidism, unspecified; Z79.899 Other long term (current) drug therapy; Z20.822 Contact with and (suspected) exposure to COVID-19
CPT/HCPCS: 0241U; 36415; 71045; 80053; 83735; 84484; 85025; 85610; 85730; 93005; 96374; 99284; 99285-25; J0696

== ENCOUNTER 2021-12-19 20:03 | Emergency (ER) | payer MEDICARE, OTHER ==
[2021-12-19 20:26] VITALS: BP 164/81; PULSE 81
[2021-12-19] MEDS ORDERED: hydrOXYzine HCl 25 MG Tab PO ONE (20:56)
[2021-12-19 21:01] LABS: ANION GAP 14.5 mmol/L (5-15); CHLORIDE,CL 98 mmol/L (98-107); ESTIMATED GFR 73 mL/min (>=60); SODIUM,NA 136 mmol/L (136-145)
== END 2021-12-19 21:35 | disposition home or self-care (01) ==
LOC: VM.ED 20:03
DX: F41.9 Anxiety disorder, unspecified (principal); E78.00 Pure hypercholesterolemia, unspecified; I10 Essential (primary) hypertension; J44.9 Chronic obstructive pulmonary disease, unspecified; E03.9 Hypothyroidism, unspecified; K21.9 Gastro-esophageal reflux disease without esophagitis; Z79.899 Other long term (current) drug therapy; Z20.822 Contact with and (suspected) exposure to COVID-19
CPT/HCPCS: 36415; 71045; 80053; 83880; 84484; 85025; 93005; 93010; 99284; 99285; A9270-GY; U0002

== ENCOUNTER 2022-01-11 19:59 | Emergency (ER) | payer MEDICARE, OTHER ==
[2022-01-11] MEDS ORDERED: Ondansetron 4 MG/2 ML SDV ONE ×2 (20:22→21:21)
[2022-01-11] MEDS ORDERED: fentaNYL 50 MCG/ML SDV ONE ×2 (21:20→22:57)
[2022-02-02 16:47] LABS: ANION GAP 8.9 mmol/L (5-15); CHLORIDE,CL 95 mmol/L (98-107); ESTIMATED GFR 73 mL/min (>=60); SODIUM,NA 130 mmol/L (136-145)
== END 2022-01-11 23:12 ==
LOC: VM.ED 19:59
DX: S72.002A Fracture of unspecified part of neck of left femur, initial encounter for closed fracture (principal); W10.9XXA Fall (on) (from) unspecified stairs and steps, initial encounter
CPT/HCPCS: 36415; 80053; 85025; 85610; 96374; 96375; 96376; 99283-25; 99284

== ENCOUNTER 2022-01-18 11:25 | Inpatient (IN) | payer MEDICARE, OTHER ==
[2022-01-18] MEDS ORDERED: hydrOXYzine HCl 25 MG Tab PO PRN (12:51)
[2022-01-18] MEDS ORDERED: Loratadine 10 MG Tab PO PRN (12:51)
[2022-01-18] MEDS ORDERED: oxyCODONE 5 MG Tab PO PRN ×2 (12:51)
[2022-01-18] MEDS ORDERED: Acetaminophen 325 MG Tab PO PRN (12:51)
[2022-01-18] MEDS ORDERED: Naloxone 0.4 MG/ML SDV IV PRN ×2 (12:51)
[2022-01-18] MEDS ORDERED: Albuterol 0.083% 2.5 MG/3 ML Neb Soln INH PRN (12:51)
[2022-01-18] MEDS ORDERED: Hypromellose 0.3% Ophth Soln 15 ML Bottle EYEBOTH PRN (12:52)
[2022-01-18] MEDS ORDERED: Melatonin 3 MG Tab PO PRN (12:52)
[2022-01-24] MEDS: Metoprolol Tartrate 25 MG Tab PO SCH ×6 (17:49→20:36)
[2022-01-24] MEDS: Ipratropium 0.06% Nasal Spray 15 ML Bottle NASBOTH SCH ×6 (17:51→20:55)
[2022-01-24] MEDS: Apixaban 2.5 MG Tab PO SCH ×7 (17:51→20:34)
[2022-01-24] MEDS: Albuterol/Ipratropium 3.0-0.5 MG/3 ML Neb Soln INH SCH ×7 (17:51→20:43)
[2022-01-24] MEDS: Sertraline 25 MG Tab PO SCH ×5 (17:51→18:47)
[2022-01-24] MEDS: Diltiazem 120 MG Cap.CD PO SCH ×4 (17:52→18:47)
[2022-01-24] MEDS: Levothyroxine 50 MCG Tab PO SCH ×4 (17:52→18:47)
[2022-01-24] MEDS: Simvastatin 10 MG Tab PO SCH ×6 (17:52→20:35)
[2022-01-24] MEDS: Cholecalciferol (Vitamin D3) 25 MCG Tab PO SCH ×5 (17:52→18:47)
[2022-01-24] MEDS: Budesonide 0.5 MG/2 ML Neb Susp INH SCH ×7 (17:53→20:55)
[2022-01-24] MEDS: Gabapentin 100 MG Cap PO SCH ×6 (17:53→20:36)
[2022-01-24] MEDS: Polyethylene Glycol 3350 Powder 17 GM Packet PO SCH ×6 (17:53→20:47)
[2022-01-24] MEDS: Magnesium Oxide 400 MG Tab PO SCH ×8 (17:53→20:34)
[2022-01-25] MEDS: Levothyroxine 50 MCG Tab PO SCH (06:03)
[2022-01-25 06:57] LABS: ANION GAP 9.1 mmol/L (5-15); CHLORIDE,CL 97 mmol/L (98-107); ESTIMATED GFR 89 mL/min (>=60); SODIUM,NA 133 mmol/L (136-145)
[2022-01-25] MEDS: Albuterol/Ipratropium 3.0-0.5 MG/3 ML Neb Soln INH SCH ×3 (07:22→20:48)
[2022-01-25] MEDS: Budesonide 0.5 MG/2 ML Neb Susp INH SCH ×2 (07:22→20:48)
[2022-01-25] MEDS: Apixaban 2.5 MG Tab PO SCH ×2 (08:53→20:49)
[2022-01-25] MEDS: Sertraline 25 MG Tab PO SCH (08:54)
[2022-01-25] MEDS: Magnesium Oxide 400 MG Tab PO SCH ×3 (08:55→20:48)
[2022-01-25] MEDS: Cholecalciferol (Vitamin D3) 25 MCG Tab PO SCH (08:55)
[2022-01-25] MEDS: Diltiazem 120 MG Cap.CD PO SCH (08:56)
[2022-01-25] MEDS: Metoprolol Tartrate 25 MG Tab PO SCH ×2 (08:56→20:49)
[2022-01-25] MEDS: Polyethylene Glycol 3350 Powder 17 GM Packet PO SCH ×2 (08:58→20:53)
[2022-01-25] MEDS: Ipratropium 0.06% Nasal Spray 15 ML Bottle NASBOTH SCH ×2 (09:00→20:54)
[2022-01-25] MEDS: Simvastatin 10 MG Tab PO SCH (20:49)
[2022-01-25] MEDS: Gabapentin 100 MG Cap PO SCH (20:53)
[2022-01-26] MEDS: Levothyroxine 50 MCG Tab PO SCH (06:22)
[2022-01-26] MEDS: Budesonide 0.5 MG/2 ML Neb Susp INH SCH ×2 (06:22→21:30)
[2022-01-26] MEDS: Albuterol/Ipratropium 3.0-0.5 MG/3 ML Neb Soln INH SCH ×3 (06:22→21:29)
[2022-01-26] MEDS: Apixaban 2.5 MG Tab PO SCH ×2 (08:04→21:34)
[2022-01-26] MEDS: Sertraline 25 MG Tab PO SCH (08:05)
[2022-01-26] MEDS: Cholecalciferol (Vitamin D3) 25 MCG Tab PO SCH (08:06)
[2022-01-26] MEDS: Metoprolol Tartrate 25 MG Tab PO SCH ×2 (08:07→21:40)
[2022-01-26] MEDS: Magnesium Oxide 400 MG Tab PO SCH ×3 (08:07→21:35)
[2022-01-26] MEDS: Diltiazem 120 MG Cap.CD PO SCH (08:07)
[2022-01-26] MEDS: Ipratropium 0.06% Nasal Spray 15 ML Bottle NASBOTH SCH ×2 (08:08→21:43)
[2022-01-26] MEDS: Polyethylene Glycol 3350 Powder 17 GM Packet PO SCH ×2 (08:09→21:41)
[2022-01-26] MEDS: Simvastatin 10 MG Tab PO SCH (21:34)
[2022-01-26] MEDS: Gabapentin 100 MG Cap PO SCH (21:35)
[2022-01-27] MEDS: Albuterol/Ipratropium 3.0-0.5 MG/3 ML Neb Soln INH SCH ×3 (06:00→20:04)
[2022-01-27] MEDS: Levothyroxine 50 MCG Tab PO SCH (06:01)
[2022-01-27] MEDS: Budesonide 0.5 MG/2 ML Neb Susp INH SCH ×2 (06:01→20:04)
[2022-01-27] MEDS: Apixaban 2.5 MG Tab PO SCH ×2 (08:22→20:04)
[2022-01-27] MEDS: Metoprolol Tartrate 25 MG Tab PO SCH ×2 (08:22→20:04)
[2022-01-27] MEDS: Sertraline 25 MG Tab PO SCH (08:23)
[2022-01-27] MEDS: Cholecalciferol (Vitamin D3) 25 MCG Tab PO SCH (08:23)
[2022-01-27] MEDS: Magnesium Oxide 400 MG Tab PO SCH ×3 (08:23→20:04)
[2022-01-27] MEDS: Diltiazem 120 MG Cap.CD PO SCH (08:23)
[2022-01-27] MEDS: Polyethylene Glycol 3350 Powder 17 GM Packet PO SCH ×2 (08:24→20:05)
[2022-01-27] MEDS: Ipratropium 0.06% Nasal Spray 15 ML Bottle NASBOTH SCH ×2 (08:24→20:11)
[2022-01-27] MEDS: Simvastatin 10 MG Tab PO SCH (20:04)
[2022-01-27] MEDS: Gabapentin 100 MG Cap PO SCH (20:05)
[2022-01-28] MEDS: Levothyroxine 50 MCG Tab PO SCH (06:37)
[2022-01-28] MEDS: Albuterol/Ipratropium 3.0-0.5 MG/3 ML Neb Soln INH SCH ×3 (06:37→20:30)
[2022-01-28] MEDS: Budesonide 0.5 MG/2 ML Neb Susp INH SCH ×2 (06:38→20:30)
[2022-01-28] MEDS: Ipratropium 0.06% Nasal Spray 15 ML Bottle NASBOTH SCH ×2 (08:48→20:32)
[2022-01-28] MEDS: Metoprolol Tartrate 25 MG Tab PO SCH ×2 (08:49→20:35)
[2022-01-28] MEDS: Diltiazem 120 MG Cap.CD PO SCH (08:49)
[2022-01-28] MEDS: Cholecalciferol (Vitamin D3) 25 MCG Tab PO SCH (08:50)
[2022-01-28] MEDS: Sertraline 25 MG Tab PO SCH (08:50)
[2022-01-28] MEDS: Magnesium Oxide 400 MG Tab PO SCH ×3 (08:50→20:31)
[2022-01-28] MEDS: Apixaban 2.5 MG Tab PO SCH ×2 (08:50→20:31)
[2022-01-28] MEDS: Polyethylene Glycol 3350 Powder 17 GM Packet PO SCH ×2 (11:41→20:30)
[2022-01-28] MEDS: Simvastatin 10 MG Tab PO SCH (20:30)
[2022-01-28] MEDS: Gabapentin 100 MG Cap PO SCH (20:30)
[2022-01-29] MEDS: Levothyroxine 50 MCG Tab PO SCH (06:58)
[2022-01-29] MEDS: Budesonide 0.5 MG/2 ML Neb Susp INH SCH ×2 (06:59→20:39)
[2022-01-29] MEDS: Albuterol/Ipratropium 3.0-0.5 MG/3 ML Neb Soln INH SCH ×3 (06:59→20:39)
[2022-01-29] MEDS: Ipratropium 0.06% Nasal Spray 15 ML Bottle NASBOTH SCH ×2 (09:33→20:43)
[2022-01-29] MEDS: Sertraline 25 MG Tab PO SCH (09:34)
[2022-01-29] MEDS: Apixaban 2.5 MG Tab PO SCH ×2 (09:34→20:38)
[2022-01-29] MEDS: Cholecalciferol (Vitamin D3) 25 MCG Tab PO SCH (09:34)
[2022-01-29] MEDS: Metoprolol Tartrate 25 MG Tab PO SCH ×2 (09:34→20:39)
[2022-01-29] MEDS: Magnesium Oxide 400 MG Tab PO SCH ×3 (09:35→20:39)
[2022-01-29] MEDS: Polyethylene Glycol 3350 Powder 17 GM Packet PO SCH ×2 (09:35→20:40)
[2022-01-29] MEDS: Diltiazem 120 MG Cap.CD PO SCH (09:35)
[2022-01-29] MEDS: Gabapentin 100 MG Cap PO SCH (20:38)
[2022-01-29] MEDS: Simvastatin 10 MG Tab PO SCH (20:39)
[2022-01-30] MEDS: Levothyroxine 50 MCG Tab PO SCH (06:28)
[2022-01-30] MEDS: Budesonide 0.5 MG/2 ML Neb Susp INH SCH ×2 (06:29→20:31)
[2022-01-30] MEDS: Albuterol/Ipratropium 3.0-0.5 MG/3 ML Neb Soln INH SCH ×3 (06:29→20:30)
[2022-01-30] MEDS: Apixaban 2.5 MG Tab PO SCH ×2 (09:27→20:31)
[2022-01-30] MEDS: Magnesium Oxide 400 MG Tab PO SCH ×3 (09:27→20:31)
[2022-01-30] MEDS: Diltiazem 120 MG Cap.CD PO SCH (09:30)
[2022-01-30] MEDS: Cholecalciferol (Vitamin D3) 25 MCG Tab PO SCH (09:30)
[2022-01-30] MEDS: Metoprolol Tartrate 25 MG Tab PO SCH ×2 (09:30→20:36)
[2022-01-30] MEDS: Sertraline 25 MG Tab PO SCH (09:31)
[2022-01-30] MEDS: Polyethylene Glycol 3350 Powder 17 GM Packet PO SCH ×2 (09:31→20:31)
[2022-01-30] MEDS: Ipratropium 0.06% Nasal Spray 15 ML Bottle NASBOTH SCH ×2 (12:50→20:32)
[2022-01-30] MEDS: Gabapentin 100 MG Cap PO SCH (20:31)
[2022-01-30] MEDS: Simvastatin 10 MG Tab PO SCH (20:31)
[2022-01-31 05:43] VITALS: BP 106/59; PULSE 79
[2022-01-31] MEDS: Albuterol/Ipratropium 3.0-0.5 MG/3 ML Neb Soln INH SCH (06:32)
[2022-01-31] MEDS: Levothyroxine 50 MCG Tab PO SCH (06:32)
[2022-01-31] MEDS: Budesonide 0.5 MG/2 ML Neb Susp INH SCH (06:32)
[2022-01-31] MEDS: Ipratropium 0.06% Nasal Spray 15 ML Bottle NASBOTH SCH (08:07)
[2022-01-31] MEDS: Sertraline 25 MG Tab PO SCH (08:08)
[2022-01-31] MEDS: Apixaban 2.5 MG Tab PO SCH (08:08)
[2022-01-31] MEDS: Magnesium Oxide 400 MG Tab PO SCH (08:08)
[2022-01-31] MEDS: Cholecalciferol (Vitamin D3) 25 MCG Tab PO SCH (08:09)
[2022-01-31] MEDS: Diltiazem 120 MG Cap.CD PO SCH (08:09)
[2022-01-31] MEDS: Polyethylene Glycol 3350 Powder 17 GM Packet PO SCH (08:09)
[2022-01-31] MEDS: Metoprolol Tartrate 25 MG Tab PO SCH (08:10)
== END 2022-01-31 10:45 | disposition home or self-care (01) | DRG 559 ==
LOC: VM.MS 11:25
PROVIDERS: ADMIT Family Medicine; ATTEND Family Medicine
DX: S72.002D Fracture of unspecified part of neck of left femur, subsequent encounter for closed fracture with routine healing (principal); I21.4 Non-ST elevation (NSTEMI) myocardial infarction; E87.1 Hypo-osmolality and hyponatremia; I48.20 Chronic atrial fibrillation, unspecified; J96.11 Chronic respiratory failure with hypoxia; F41.9 Anxiety disorder, unspecified; J44.9 Chronic obstructive pulmonary disease, unspecified; J32.9 Chronic sinusitis, unspecified; E78.5 Hyperlipidemia, unspecified; E03.9 Hypothyroidism, unspecified; I10 Essential (primary) hypertension; Z86.16 Personal history of COVID-19; I27.20 Pulmonary hypertension, unspecified; M81.0 Age-related osteoporosis without current pathological fracture; K21.9 Gastro-esophageal reflux disease without esophagitis; I07.1 Rheumatic tricuspid insufficiency; Z90.49 Acquired absence of other specified parts of digestive tract; Z90.710 Acquired absence of both cervix and uterus; Z79.890 Hormone replacement therapy; Z79.899 Other long term (current) drug therapy; D64.9 Anemia, unspecified
CPT/HCPCS: 36415; 80048; 85025; 94640; 94760; 95851-GO; 97110-GP; 97116-GP; 97161-GP; 97165-GO; 97530-GP; 97535-GO; A9270-GY; J7620-GY

== ENCOUNTER 2022-07-13 09:49 | Emergency (ER) | payer MEDICARE, OTHER ==
[2022-07-13] MEDS ORDERED: Albuterol 0.083% 2.5 MG/3 ML Neb Soln NEB ONE (10:59)
[2022-07-13 11:02] LABS: CHLORIDE,CL 100 mmol/L (98-107); SODIUM,NA 138 mmol/L (136-145)
[2022-07-13] MEDS ORDERED: Iopamidol 612 MG/ML 100 ML Bottle IVPUSH ONE (12:02)
[2022-07-13 12:06] LABS: ESTIMATED GFR 37 mL/min (>=60)
[2022-07-13 12:11] LABS: ANION GAP 17.6 mmol/L (5-15)
[2022-07-13] MEDS ORDERED: Tranexamic Acid 1,000 MG in Sodium Chloride 0.9% 100 ML IV ONE (13:25)
[2022-07-13] MEDS ORDERED: Factor IX Complex Human 1,000 UNIT VIAL IV ONE (13:45)
[2022-07-13 15:09] VITALS: PULSE 102
== END 2022-07-13 13:55 | disposition short-term general hospital (02) ==
LOC: VM.ED 09:49
DX: S00.83XA Contusion of other part of head, initial encounter (principal); S00.212A Abrasion of left eyelid and periocular area, initial encounter; E78.00 Pure hypercholesterolemia, unspecified; I10 Essential (primary) hypertension; I48.91 Unspecified atrial fibrillation; J44.9 Chronic obstructive pulmonary disease, unspecified; E03.9 Hypothyroidism, unspecified; Z86.16 Personal history of COVID-19; Z79.899 Other long term (current) drug therapy; Z79.01 Long term (current) use of anticoagulants; W22.8XXA Striking against or struck by other objects, initial encounter
CPT/HCPCS: 36415; 36430; 70450; 71045; 71260; 72125; 74177; 80053; 83735; 84100; 84484; 85025; 85610; 85730; 86850; 86900; 86901; 86920; 86922; 93010; 94640; 96374; 96375; 99285; 99285-25; J3490; J7168; J7613-GY; P9016; Q9967

== ENCOUNTER 2022-07-21 12:44 | Inpatient (IN) | payer MEDICARE, OTHER ==
[2022-07-21] MEDS ORDERED: Hypromellose 0.3% Ophth Soln 15 ML Bottle EYEBOTH PRN (16:15)
[2022-07-21] MEDS ORDERED: Loratadine 10 MG Tab PO PRN (16:15)
[2022-07-21] MEDS ORDERED: Bisacodyl 10 MG Supp RECTAL PRN (16:15)
[2022-07-21] MEDS ORDERED: Benzocaine/Cetylpyridinium/Menthol Lozenge MUCMEM PRN (16:15)
[2022-07-21] MEDS ORDERED: hydrOXYzine HCl 25 MG Tab PO PRN (16:15)
[2022-07-21] MEDS ORDERED: Polyethylene Glycol 3350 Powder 17 GM Packet PO PRN (16:15)
[2022-07-21] MEDS ORDERED: Albuterol HFA 18 Gm Inhaler INH PRN (16:15)
[2022-07-21] MEDS ORDERED: Bacitracin Oint 28.35 GM Tube TOP PRN (16:15)
[2022-07-21] MEDS ORDERED: oxyCODONE 5 MG Tab PO PRN (16:15)
[2022-07-21] MEDS ORDERED: Ondansetron 4 MG Tab.DIS PO PRN (18:44)
[2022-07-21] MEDS: Albuterol 0.083% 2.5 MG/3 ML Neb Soln NEB PRN (20:50)
[2022-07-21] MEDS: Gabapentin 100 MG Cap PO SCH (20:51)
[2022-07-21] MEDS: Simvastatin 10 MG Tab PO SCH (20:52)
[2022-07-21] MEDS: Nystatin Susp 100,000 Unit/ML 5 ML UD Cup PO SCH (20:52)
[2022-07-21] MEDS: Enoxaparin 30 MG/0.3 ML Syringe SUBCUT SCH (20:52)
[2022-07-21] MEDS: Metoprolol Tartrate 25 MG Tab PO SCH (20:53)
[2022-07-21] MEDS: Formoterol/Mometasone 100-5 MCG 8.8 GM Inhaler IH SCH (21:00)
[2022-07-21] MEDS: Ipratropium 0.06% Nasal Spray 15 ML Bottle NASBOTH SCH (21:26)
[2022-07-22] MEDS: Levothyroxine 50 MCG Tab PO SCH (06:30)
[2022-07-22] MEDS: Tiotropium Bromide 4 GM Inhalation Spray (2.5mcg/1 dose; 10 doses) INH SCH (06:30)
[2022-07-22] MEDS: Formoterol/Mometasone 100-5 MCG 8.8 GM Inhaler IH SCH ×2 (06:31→21:24)
[2022-07-22 08:10] LABS: HEMOGLOBIN 9.5 g/dL (12.0-16.0); MEAN CORPUSCULAR HEMOGLOBIN 30.3 pg (26.0-32.0); MEAN CORPUSCULAR HGB CONC 33.9 g/dL (32.0-36.0); MEAN CORPUSCULAR VOLUME 89.2 fL (78.0-93.0); RED BLOOD CELL COUNT 3.14 x10^6/uL (4.00-5.50); WHITE BLOOD CELL COUNT,WBC 19.5 x10^3/uL (4.0-10.0)
[2022-07-22] MEDS: Diltiazem 120 MG Cap.CD PO SCH (09:16)
[2022-07-22] MEDS: Sertraline 25 MG Tab PO SCH (09:17)
[2022-07-22] MEDS: Metoprolol Tartrate 25 MG Tab PO SCH ×2 (09:19→21:23)
[2022-07-22] MEDS: Cholecalciferol (Vitamin D3) 25 MCG Tab PO SCH (09:20)
[2022-07-22] MEDS: Digoxin 125 MCG Tab PO SCH (09:21)
[2022-07-22] MEDS: Nystatin Susp 100,000 Unit/ML 5 ML UD Cup PO SCH ×3 (09:21→21:23)
[2022-07-22] MEDS: Lidocaine 4% 1 each Patch TOP SCH (09:22)
[2022-07-22] MEDS: Enoxaparin 30 MG/0.3 ML Syringe SUBCUT SCH ×2 (09:23→21:22)
[2022-07-22] MEDS: Ipratropium 0.06% Nasal Spray 15 ML Bottle NASBOTH SCH ×2 (09:24→21:25)
[2022-07-22] MEDS: Albuterol 0.083% 2.5 MG/3 ML Neb Soln NEB PRN (12:41)
[2022-07-22] MEDS: Gabapentin 100 MG Cap PO SCH (21:24)
[2022-07-22] MEDS: Simvastatin 10 MG Tab PO SCH (21:24)
[2022-07-23] MEDS: Tiotropium Bromide 4 GM Inhalation Spray (2.5mcg/1 dose; 10 doses) INH SCH (06:36)
[2022-07-23] MEDS: Levothyroxine 50 MCG Tab PO SCH (06:36)
[2022-07-23] MEDS: Formoterol/Mometasone 100-5 MCG 8.8 GM Inhaler IH SCH ×2 (06:36→20:41)
[2022-07-23] MEDS: Diltiazem 120 MG Cap.CD PO SCH (08:33)
[2022-07-23] MEDS: Cholecalciferol (Vitamin D3) 25 MCG Tab PO SCH (08:35)
[2022-07-23] MEDS: Metoprolol Tartrate 25 MG Tab PO SCH ×2 (08:35→20:42)
[2022-07-23] MEDS: Sertraline 25 MG Tab PO SCH (08:35)
[2022-07-23] MEDS: Digoxin 125 MCG Tab PO SCH (08:36)
[2022-07-23] MEDS: Enoxaparin 30 MG/0.3 ML Syringe SUBCUT SCH ×2 (08:38→20:40)
[2022-07-23] MEDS: Nystatin Susp 100,000 Unit/ML 5 ML UD Cup PO SCH ×3 (08:38→20:40)
[2022-07-23] MEDS: Ipratropium 0.06% Nasal Spray 15 ML Bottle NASBOTH SCH ×2 (08:42→20:44)
[2022-07-23] MEDS: Lidocaine 4% 1 each Patch TOP SCH (08:45)
[2022-07-23] MEDS: Albuterol 0.083% 2.5 MG/3 ML Neb Soln NEB PRN (16:54)
[2022-07-23] MEDS: Gabapentin 100 MG Cap PO SCH (20:41)
[2022-07-23] MEDS: Simvastatin 10 MG Tab PO SCH (20:41)
[2022-07-24] MEDS: Levothyroxine 50 MCG Tab PO SCH (06:48)
[2022-07-24] MEDS: Formoterol/Mometasone 100-5 MCG 8.8 GM Inhaler IH SCH ×2 (06:49→20:12)
[2022-07-24] MEDS: Tiotropium Bromide 4 GM Inhalation Spray (2.5mcg/1 dose; 10 doses) INH SCH (06:49)
[2022-07-24 06:56] LABS: HEMOGLOBIN 9.5 g/dL (12.0-16.0); MEAN CORPUSCULAR HEMOGLOBIN 29.7 pg (26.0-32.0); MEAN CORPUSCULAR HGB CONC 32.8 g/dL (32.0-36.0); MEAN CORPUSCULAR VOLUME 90.6 fL (78.0-93.0); PLATELET COUNT,PLT 646 x10^3/uL (130-400)
[2022-07-24 06:58] LABS: WHITE BLOOD CELL COUNT,WBC 21.8 x10^3/uL (4.0-10.0)
[2022-07-24 07:16] LABS: A/G RATIO 0.65; ALBUMIN 2.2 g/dL (3.4-5.0); CALCIUM 7.9 mg/dL (8.5-10.1); CREATININE 0.5 mg/dL (0.55-1.02); EST CRCL DRUG DOSING (CG) 73.62 mL/min; MAGNESIUM 1.9 mg/dL (1.8-2.4); POTASSIUM,K 4.1 mmol/L (3.5-5.1); PROTEIN TOTAL,TP 5.6 g/dL (6.4-8.2)
[2022-07-24 07:17] LABS: ANISOCYTOSIS 1+ SLIGHT; BAND PERCENT MAN 2 % (0-6); EOSINOPHILS ABSOLUTE MAN 0.2 x10^3/uL (0.0-0.5); EOSINOPHILS PERCENT MAN 1 % (0-4); HYPOCHROMASIA 1+ SLIGHT; LYMPHOCYTES ABSOLUTE MAN 3.1 x10^3/uL (1.0-4.8); LYMPHOCYTES PERCENT MAN 14 % (25-50); MONOCYTES ABSOLUTE MAN 0.9 x10^3/uL (0.0-0.8); MONOCYTES PERCENT MAN 4 % (2-11); NEUTROPHILS ABSOLUTE MAN 17.7 x10^3/uL (1.8-7.7); NRBC MANUAL 1 /100WBC (0-5); SEG NEUTROPHILS PERCENT MAN 79 % (50-80)
[2022-07-24 07:18] LABS: PLATELET COUNT ESTIMATE INCREASED
[2022-07-24 07:19] LABS: ANION GAP 9.1 mmol/L (5-15)
[2022-07-24] MEDS: Metoprolol Tartrate 25 MG Tab PO SCH ×2 (08:54→20:11)
[2022-07-24] MEDS: Sertraline 25 MG Tab PO SCH (08:55)
[2022-07-24] MEDS: Lidocaine 4% 1 each Patch TOP SCH (08:56)
[2022-07-24] MEDS: Nystatin Susp 100,000 Unit/ML 5 ML UD Cup PO SCH ×3 (08:56→20:11)
[2022-07-24] MEDS: Diltiazem 120 MG Cap.CD PO SCH (08:56)
[2022-07-24] MEDS: Cholecalciferol (Vitamin D3) 25 MCG Tab PO SCH (08:56)
[2022-07-24] MEDS: Digoxin 125 MCG Tab PO SCH (09:01)
[2022-07-24] MEDS: Enoxaparin 30 MG/0.3 ML Syringe SUBCUT SCH ×2 (09:07→20:11)
[2022-07-24] MEDS: Ipratropium 0.06% Nasal Spray 15 ML Bottle NASBOTH SCH ×2 (09:14→20:15)
[2022-07-24 10:39] LABS: APPEARANCE,URINE CLOUDY (CLEAR); BILIRUBIN,URINE NEGATIVE (NEGATIVE); COLOR,URINE YELLOW (YELLOW); GLUCOSE,URINE NEGATIVE (NEGATIVE); KETONES,URINE TRACE mg/dL (NEGATIVE); LEUKOCYTE ESTERASE,URINE TRACE (NEGATIVE); NITRITE,URINE NEGATIVE (NEGATIVE); OCCULT BLOOD,URINE NEGATIVE (NEGATIVE); PROTEIN,URINE 30 mg/dL (NEGATIVE); UROBILINOGEN,URINE >=8.0 EU/dL (0.2)
[2022-07-24 10:52] LABS: BACTERIA,URINE MODERATE /HPF (NOT SEEN); MUCUS,URINE FEW /LPF (NOT SEEN); RBC,URINE 0-5 /HPF (NOT SEEN); SQUAMOUS EPITHELIAL CELLS,UR FEW /HPF (NOT SEEN)
[2022-07-24] MEDS: Nitrofurantoin Monohydrate/Macrocrystalline 100 MG Cap PO SCH ×2 (14:47→20:11)
[2022-07-24] MEDS: Gabapentin 100 MG Cap PO SCH (20:11)
[2022-07-24] MEDS: Simvastatin 10 MG Tab PO SCH (20:13)
[2022-07-25] MEDS: Levothyroxine 50 MCG Tab PO SCH (06:18)
[2022-07-25] MEDS: Tiotropium Bromide 4 GM Inhalation Spray (2.5mcg/1 dose; 10 doses) INH SCH (06:18)
[2022-07-25] MEDS: Formoterol/Mometasone 100-5 MCG 8.8 GM Inhaler IH SCH ×2 (06:19→21:20)
[2022-07-25 06:58] LABS: HEMATOCRIT 29.2 % (33.0-47.0); HEMOGLOBIN 9.4 g/dL (12.0-16.0); MEAN CORPUSCULAR HEMOGLOBIN 29.2 pg (26.0-32.0); MEAN CORPUSCULAR HGB CONC 32.2 g/dL (32.0-36.0); MEAN CORPUSCULAR VOLUME 90.7 fL (78.0-93.0); RED BLOOD CELL COUNT 3.22 x10^6/uL (4.00-5.50); WHITE BLOOD CELL COUNT,WBC 18.8 x10^3/uL (4.0-10.0)
[2022-07-25] MEDS: Sertraline 25 MG Tab PO SCH (09:36)
[2022-07-25] MEDS: Nystatin Susp 100,000 Unit/ML 5 ML UD Cup PO SCH ×3 (09:36→21:21)
[2022-07-25] MEDS: Cholecalciferol (Vitamin D3) 25 MCG Tab PO SCH (09:36)
[2022-07-25] MEDS: Nitrofurantoin Monohydrate/Macrocrystalline 100 MG Cap PO SCH ×2 (09:36→21:11)
[2022-07-25] MEDS: Diltiazem 120 MG Cap.CD PO SCH (09:39)
[2022-07-25] MEDS: Digoxin 125 MCG Tab PO SCH (09:39)
[2022-07-25] MEDS: Ipratropium 0.06% Nasal Spray 15 ML Bottle NASBOTH SCH ×2 (09:40→21:23)
[2022-07-25] MEDS: Enoxaparin 30 MG/0.3 ML Syringe SUBCUT SCH ×2 (09:41→21:11)
[2022-07-25] MEDS: Metoprolol Tartrate 25 MG Tab PO SCH ×2 (09:42→21:13)
[2022-07-25] MEDS: Lidocaine 4% 1 each Patch TOP SCH (14:43)
[2022-07-25] MEDS: Gabapentin 100 MG Cap PO SCH (21:11)
[2022-07-25] MEDS: Simvastatin 10 MG Tab PO SCH (21:11)
[2022-07-26] MEDS: Formoterol/Mometasone 100-5 MCG 8.8 GM Inhaler IH SCH ×2 (06:31→20:59)
[2022-07-26] MEDS: Levothyroxine 50 MCG Tab PO SCH (06:31)
[2022-07-26] MEDS: Tiotropium Bromide 4 GM Inhalation Spray (2.5mcg/1 dose; 10 doses) INH SCH (06:31)
[2022-07-26] MEDS: Nitrofurantoin Monohydrate/Macrocrystalline 100 MG Cap PO SCH (08:53)
[2022-07-26] MEDS: Digoxin 125 MCG Tab PO SCH (08:56)
[2022-07-26] MEDS: Diltiazem 120 MG Cap.CD PO SCH (08:56)
[2022-07-26] MEDS: Cholecalciferol (Vitamin D3) 25 MCG Tab PO SCH (08:56)
[2022-07-26] MEDS: Sertraline 25 MG Tab PO SCH (08:57)
[2022-07-26] MEDS: Metoprolol Tartrate 25 MG Tab PO SCH ×2 (08:58→20:57)
[2022-07-26] MEDS: Enoxaparin 30 MG/0.3 ML Syringe SUBCUT SCH ×2 (08:58→20:58)
[2022-07-26] MEDS: Lidocaine 4% 1 each Patch TOP SCH (08:59)
[2022-07-26] MEDS: Nystatin Susp 100,000 Unit/ML 5 ML UD Cup PO SCH ×3 (08:59→21:00)
[2022-07-26] MEDS ORDERED: Amoxicillin/Clavulanate K 875-125 MG Tab PO SCH (09:00)
[2022-07-26] MEDS: Ipratropium 0.06% Nasal Spray 15 ML Bottle NASBOTH SCH ×2 (09:06→21:07)
[2022-07-26] MEDS: Cefuroxime 250 MG Tab PO SCH ×2 (10:24→20:58)
[2022-07-26] MEDS: Azithromycin 250 MG Tab PO SCH (10:24)
[2022-07-26] MEDS: Simvastatin 10 MG Tab PO SCH (20:58)
[2022-07-26] MEDS: Gabapentin 100 MG Cap PO SCH (20:58)
[2022-07-27] MEDS: Levothyroxine 50 MCG Tab PO SCH (06:39)
[2022-07-27] MEDS: Formoterol/Mometasone 100-5 MCG 8.8 GM Inhaler IH SCH ×2 (06:40→20:45)
[2022-07-27] MEDS: Tiotropium Bromide 4 GM Inhalation Spray (2.5mcg/1 dose; 10 doses) INH SCH (06:40)
[2022-07-27] MEDS: Enoxaparin 30 MG/0.3 ML Syringe SUBCUT SCH ×2 (08:46→20:49)
[2022-07-27] MEDS: Nystatin Susp 100,000 Unit/ML 5 ML UD Cup PO SCH ×3 (08:46→20:48)
[2022-07-27] MEDS: Lidocaine 4% 1 each Patch TOP SCH (08:46)
[2022-07-27] MEDS: Ipratropium 0.06% Nasal Spray 15 ML Bottle NASBOTH SCH ×2 (08:48→20:51)
[2022-07-27] MEDS: Digoxin 125 MCG Tab PO SCH (08:48)
[2022-07-27] MEDS: Metoprolol Tartrate 25 MG Tab PO SCH ×2 (08:48→20:48)
[2022-07-27] MEDS: Sertraline 25 MG Tab PO SCH (08:50)
[2022-07-27] MEDS: Azithromycin 250 MG Tab PO SCH (08:51)
[2022-07-27] MEDS: Cefuroxime 250 MG Tab PO SCH ×2 (08:51→20:46)
[2022-07-27] MEDS: Cholecalciferol (Vitamin D3) 25 MCG Tab PO SCH (08:51)
[2022-07-27] MEDS: Diltiazem 120 MG Cap.CD PO SCH (08:51)
[2022-07-27] MEDS ORDERED: Azithromycin 250 MG Tab PO SCH (09:00)
[2022-07-27] MEDS: Gabapentin 100 MG Cap PO SCH (20:47)
[2022-07-27] MEDS: Simvastatin 10 MG Tab PO SCH (20:48)
[2022-07-28] MEDS: Albuterol 0.083% 2.5 MG/3 ML Neb Soln NEB PRN (05:40)
[2022-07-28] MEDS: Formoterol/Mometasone 100-5 MCG 8.8 GM Inhaler IH SCH ×2 (06:38→21:18)
[2022-07-28] MEDS: Tiotropium Bromide 4 GM Inhalation Spray (2.5mcg/1 dose; 10 doses) INH SCH (06:39)
[2022-07-28] MEDS: Levothyroxine 50 MCG Tab PO SCH (06:39)
[2022-07-28 06:57] LABS: HEMOGLOBIN 10.1 g/dL (12.0-16.0); MEAN CORPUSCULAR HEMOGLOBIN 29.4 pg (26.0-32.0); MEAN CORPUSCULAR HGB CONC 32.6 g/dL (32.0-36.0); MEAN CORPUSCULAR VOLUME 90.1 fL (78.0-93.0); RED BLOOD CELL COUNT 3.44 x10^6/uL (4.00-5.50); WHITE BLOOD CELL COUNT,WBC 16.8 x10^3/uL (4.0-10.0)
[2022-07-28] MEDS: Lidocaine 4% 1 each Patch TOP SCH (08:43)
[2022-07-28] MEDS: Cefuroxime 250 MG Tab PO SCH ×2 (08:44→21:16)
[2022-07-28] MEDS: Diltiazem 120 MG Cap.CD PO SCH (08:45)
[2022-07-28] MEDS: Digoxin 125 MCG Tab PO SCH (08:45)
[2022-07-28] MEDS: Azithromycin 250 MG Tab PO SCH (08:46)
[2022-07-28] MEDS: Sertraline 25 MG Tab PO SCH (08:46)
[2022-07-28] MEDS: Nystatin Susp 100,000 Unit/ML 5 ML UD Cup PO SCH ×3 (08:47→21:17)
[2022-07-28] MEDS: Metoprolol Tartrate 25 MG Tab PO SCH ×2 (08:47→21:17)
[2022-07-28] MEDS: Cholecalciferol (Vitamin D3) 25 MCG Tab PO SCH (08:47)
[2022-07-28] MEDS: Enoxaparin 30 MG/0.3 ML Syringe SUBCUT SCH ×2 (08:50→21:14)
[2022-07-28] MEDS: Ipratropium 0.06% Nasal Spray 15 ML Bottle NASBOTH SCH ×2 (12:15→21:18)
[2022-07-28] MEDS: Gabapentin 100 MG Cap PO SCH (21:16)
[2022-07-28] MEDS: Simvastatin 10 MG Tab PO SCH (21:17)
[2022-07-29] MEDS: Levothyroxine 50 MCG Tab PO SCH (06:18)
[2022-07-29] MEDS: Formoterol/Mometasone 100-5 MCG 8.8 GM Inhaler IH SCH ×2 (06:18→20:42)
[2022-07-29] MEDS: Tiotropium Bromide 4 GM Inhalation Spray (2.5mcg/1 dose; 10 doses) INH SCH (06:19)
[2022-07-29] MEDS: Lidocaine 4% 1 each Patch TOP SCH (08:42)
[2022-07-29] MEDS: Nystatin Susp 100,000 Unit/ML 5 ML UD Cup PO SCH ×3 (08:42→20:41)
[2022-07-29] MEDS: Enoxaparin 30 MG/0.3 ML Syringe SUBCUT SCH ×2 (08:43→20:38)
[2022-07-29] MEDS: Azithromycin 250 MG Tab PO SCH (08:43)
[2022-07-29] MEDS: Cefuroxime 250 MG Tab PO SCH ×2 (08:44→20:40)
[2022-07-29] MEDS: Sertraline 25 MG Tab PO SCH (08:44)
[2022-07-29] MEDS: Cholecalciferol (Vitamin D3) 25 MCG Tab PO SCH (08:44)
[2022-07-29] MEDS: Digoxin 125 MCG Tab PO SCH (08:48)
[2022-07-29] MEDS: Diltiazem 120 MG Cap.CD PO SCH (08:48)
[2022-07-29] MEDS: Metoprolol Tartrate 25 MG Tab PO SCH ×2 (08:48→20:40)
[2022-07-29] MEDS: Ipratropium 0.06% Nasal Spray 15 ML Bottle NASBOTH SCH ×2 (08:57→20:42)
[2022-07-29] MEDS: Gabapentin 100 MG Cap PO SCH (20:41)
[2022-07-29] MEDS: Simvastatin 10 MG Tab PO SCH (20:43)
[2022-07-30] MEDS: Formoterol/Mometasone 100-5 MCG 8.8 GM Inhaler IH SCH ×2 (06:16→20:16)
[2022-07-30] MEDS: Levothyroxine 50 MCG Tab PO SCH (06:16)
[2022-07-30] MEDS: Tiotropium Bromide 4 GM Inhalation Spray (2.5mcg/1 dose; 10 doses) INH SCH (06:18)
[2022-07-30] MEDS: Ipratropium 0.06% Nasal Spray 15 ML Bottle NASBOTH SCH ×2 (08:24→20:16)
[2022-07-30] MEDS: Enoxaparin 30 MG/0.3 ML Syringe SUBCUT SCH ×2 (08:25→20:20)
[2022-07-30] MEDS: Lidocaine 4% 1 each Patch TOP SCH (08:26)
[2022-07-30] MEDS: Nystatin Susp 100,000 Unit/ML 5 ML UD Cup PO SCH ×3 (08:26→20:19)
[2022-07-30] MEDS: Cefuroxime 250 MG Tab PO SCH ×2 (08:29→20:19)
[2022-07-30] MEDS: Digoxin 125 MCG Tab PO SCH (08:30)
[2022-07-30] MEDS: Sertraline 25 MG Tab PO SCH (08:30)
[2022-07-30] MEDS: Cholecalciferol (Vitamin D3) 25 MCG Tab PO SCH (08:30)
[2022-07-30] MEDS: Azithromycin 250 MG Tab PO SCH (08:30)
[2022-07-30] MEDS: Diltiazem 120 MG Cap.CD PO SCH (08:31)
[2022-07-30] MEDS: Metoprolol Tartrate 25 MG Tab PO SCH ×2 (08:31→20:18)
[2022-07-30] MEDS: Gabapentin 100 MG Cap PO SCH (20:18)
[2022-07-30] MEDS: Simvastatin 10 MG Tab PO SCH (20:19)
[2022-07-31] MEDS: Formoterol/Mometasone 100-5 MCG 8.8 GM Inhaler IH SCH ×2 (06:43→20:13)
[2022-07-31] MEDS: Levothyroxine 50 MCG Tab PO SCH (06:43)
[2022-07-31] MEDS: Tiotropium Bromide 4 GM Inhalation Spray (2.5mcg/1 dose; 10 doses) INH SCH (06:44)
[2022-07-31 07:18] LABS: HEMATOCRIT 31.5 % (33.0-47.0); HEMOGLOBIN 10.3 g/dL (12.0-16.0); MEAN CORPUSCULAR HGB CONC 32.7 g/dL (32.0-36.0); MEAN CORPUSCULAR VOLUME 88.7 fL (78.0-93.0); RED BLOOD CELL COUNT 3.55 x10^6/uL (4.00-5.50); WHITE BLOOD CELL COUNT,WBC 12.7 x10^3/uL (4.0-10.0)
[2022-07-31] MEDS: Lidocaine 4% 1 each Patch TOP SCH (08:39)
[2022-07-31] MEDS: Ipratropium 0.06% Nasal Spray 15 ML Bottle NASBOTH SCH ×2 (08:39→20:13)
[2022-07-31] MEDS: Nystatin Susp 100,000 Unit/ML 5 ML UD Cup PO SCH ×3 (08:39→20:14)
[2022-07-31] MEDS: Digoxin 125 MCG Tab PO SCH (08:40)
[2022-07-31] MEDS: Apixaban 2.5 MG Tab PO SCH ×2 (08:40→20:15)
[2022-07-31] MEDS: Sertraline 25 MG Tab PO SCH (08:40)
[2022-07-31] MEDS: Diltiazem 120 MG Cap.CD PO SCH (08:41)
[2022-07-31] MEDS: Metoprolol Tartrate 25 MG Tab PO SCH ×2 (08:41→20:13)
[2022-07-31] MEDS: Cholecalciferol (Vitamin D3) 25 MCG Tab PO SCH (08:43)
[2022-07-31] MEDS: Simvastatin 10 MG Tab PO SCH (20:14)
[2022-07-31] MEDS: Gabapentin 100 MG Cap PO SCH (20:14)
[2022-08-01] MEDS: Levothyroxine 50 MCG Tab PO SCH (06:27)
[2022-08-01] MEDS: Formoterol/Mometasone 100-5 MCG 8.8 GM Inhaler IH SCH ×2 (06:28→20:08)
[2022-08-01] MEDS: Tiotropium Bromide 4 GM Inhalation Spray (2.5mcg/1 dose; 10 doses) INH SCH (06:28)
[2022-08-01] MEDS: Lidocaine 4% 1 each Patch TOP SCH (08:25)
[2022-08-01] MEDS: Sertraline 25 MG Tab PO SCH (08:27)
[2022-08-01] MEDS: Ipratropium 0.06% Nasal Spray 15 ML Bottle NASBOTH SCH ×2 (08:27→20:09)
[2022-08-01] MEDS: Digoxin 125 MCG Tab PO SCH (08:29)
[2022-08-01] MEDS: Metoprolol Tartrate 25 MG Tab PO SCH ×2 (08:29→20:11)
[2022-08-01] MEDS: Diltiazem 120 MG Cap.CD PO SCH (08:30)
[2022-08-01] MEDS: Apixaban 2.5 MG Tab PO SCH ×2 (08:30→20:10)
[2022-08-01] MEDS: Cholecalciferol (Vitamin D3) 25 MCG Tab PO SCH (08:31)
[2022-08-01] MEDS: Nystatin Susp 100,000 Unit/ML 5 ML UD Cup PO SCH ×3 (08:31→20:11)
[2022-08-01] MEDS: Simvastatin 10 MG Tab PO SCH (20:10)
[2022-08-01] MEDS: Gabapentin 100 MG Cap PO SCH (20:10)
[2022-08-02] MEDS: Levothyroxine 50 MCG Tab PO SCH (06:26)
[2022-08-02] MEDS: Tiotropium Bromide 4 GM Inhalation Spray (2.5mcg/1 dose; 10 doses) INH SCH (06:27)
[2022-08-02] MEDS: Formoterol/Mometasone 100-5 MCG 8.8 GM Inhaler IH SCH ×2 (06:27→21:01)
[2022-08-02] MEDS: Ipratropium 0.06% Nasal Spray 15 ML Bottle NASBOTH SCH ×2 (08:40→21:02)
[2022-08-02] MEDS: Cholecalciferol (Vitamin D3) 25 MCG Tab PO SCH (08:40)
[2022-08-02] MEDS: Diltiazem 120 MG Cap.CD PO SCH (08:40)
[2022-08-02] MEDS: Nystatin Susp 100,000 Unit/ML 5 ML UD Cup PO SCH ×3 (08:40→21:00)
[2022-08-02] MEDS: Sertraline 25 MG Tab PO SCH (08:41)
[2022-08-02] MEDS: Digoxin 125 MCG Tab PO SCH (08:41)
[2022-08-02] MEDS: Apixaban 2.5 MG Tab PO SCH ×2 (08:41→20:58)
[2022-08-02] MEDS: Metoprolol Tartrate 25 MG Tab PO SCH ×2 (08:41→20:58)
[2022-08-02] MEDS: Lidocaine 4% 1 each Patch TOP SCH (08:42)
[2022-08-02] MEDS: Gabapentin 100 MG Cap PO SCH (21:01)
[2022-08-02] MEDS: Simvastatin 10 MG Tab PO SCH (21:01)
[2022-08-03] MEDS: Formoterol/Mometasone 100-5 MCG 8.8 GM Inhaler IH SCH ×2 (06:17→20:07)
[2022-08-03] MEDS: Tiotropium Bromide 4 GM Inhalation Spray (2.5mcg/1 dose; 10 doses) INH SCH (06:17)
[2022-08-03] MEDS: Levothyroxine 50 MCG Tab PO SCH (06:17)
[2022-08-03 07:01] LABS: HEMATOCRIT 33.3 % (33.0-47.0); HEMOGLOBIN 10.7 g/dL (12.0-16.0); MEAN CORPUSCULAR HEMOGLOBIN 28.4 pg (26.0-32.0); MEAN CORPUSCULAR HGB CONC 32.1 g/dL (32.0-36.0); MEAN CORPUSCULAR VOLUME 88.3 fL (78.0-93.0); RED BLOOD CELL COUNT 3.77 x10^6/uL (4.00-5.50); WHITE BLOOD CELL COUNT,WBC 12.8 x10^3/uL (4.0-10.0)
[2022-08-03] MEDS: Nystatin Susp 100,000 Unit/ML 5 ML UD Cup PO SCH ×3 (09:00→20:11)
[2022-08-03] MEDS: Lidocaine 4% 1 each Patch TOP SCH (09:00)
[2022-08-03] MEDS: Metoprolol Tartrate 25 MG Tab PO SCH ×2 (09:01→20:08)
[2022-08-03] MEDS: Cholecalciferol (Vitamin D3) 25 MCG Tab PO SCH (09:01)
[2022-08-03] MEDS: Sertraline 25 MG Tab PO SCH (09:01)
[2022-08-03] MEDS: Digoxin 125 MCG Tab PO SCH (09:01)
[2022-08-03] MEDS: Apixaban 2.5 MG Tab PO SCH ×2 (09:02→20:04)
[2022-08-03] MEDS: Ipratropium 0.06% Nasal Spray 15 ML Bottle NASBOTH SCH ×2 (09:02→20:10)
[2022-08-03] MEDS: Diltiazem 120 MG Cap.CD PO SCH (09:02)
[2022-08-03] MEDS: Acetaminophen 325 MG Tab PO PRN (20:03)
[2022-08-03] MEDS: Gabapentin 100 MG Cap PO SCH (20:07)
[2022-08-03] MEDS: Simvastatin 10 MG Tab PO SCH (20:08)
[2022-08-04] MEDS: Tiotropium Bromide 4 GM Inhalation Spray (2.5mcg/1 dose; 10 doses) INH SCH (06:42)
[2022-08-04] MEDS: Levothyroxine 50 MCG Tab PO SCH (06:48)
[2022-08-04] MEDS: Formoterol/Mometasone 100-5 MCG 8.8 GM Inhaler IH SCH ×2 (06:48→20:02)
[2022-08-04] MEDS: Sertraline 25 MG Tab PO SCH (10:07)
[2022-08-04] MEDS: Diltiazem 120 MG Cap.CD PO SCH (10:08)
[2022-08-04] MEDS: Apixaban 2.5 MG Tab PO SCH ×2 (10:09→20:01)
[2022-08-04] MEDS: Metoprolol Tartrate 25 MG Tab PO SCH ×2 (10:09→20:01)
[2022-08-04] MEDS: Lidocaine 4% 1 each Patch TOP SCH (10:09)
[2022-08-04] MEDS: Cholecalciferol (Vitamin D3) 25 MCG Tab PO SCH (10:09)
[2022-08-04] MEDS: Ipratropium 0.06% Nasal Spray 15 ML Bottle NASBOTH SCH ×2 (10:10→20:02)
[2022-08-04] MEDS: Nystatin Susp 100,000 Unit/ML 5 ML UD Cup PO SCH ×3 (10:10→20:01)
[2022-08-04] MEDS: Digoxin 125 MCG Tab PO SCH (10:30)
[2022-08-04] MEDS: Acetaminophen 325 MG Tab PO PRN (15:05)
[2022-08-04] MEDS: Simvastatin 10 MG Tab PO SCH (20:01)
[2022-08-04] MEDS: Gabapentin 100 MG Cap PO SCH (20:01)
[2022-08-05] MEDS: Levothyroxine 50 MCG Tab PO SCH (06:49)
[2022-08-05] MEDS: Tiotropium Bromide 4 GM Inhalation Spray (2.5mcg/1 dose; 10 doses) INH SCH (06:49)
[2022-08-05] MEDS: Formoterol/Mometasone 100-5 MCG 8.8 GM Inhaler IH SCH ×2 (06:49→20:22)
[2022-08-05] MEDS: Sertraline 25 MG Tab PO SCH (09:16)
[2022-08-05] MEDS: Apixaban 2.5 MG Tab PO SCH ×2 (09:16→20:20)
[2022-08-05] MEDS: Diltiazem 120 MG Cap.CD PO SCH (09:17)
[2022-08-05] MEDS: Cholecalciferol (Vitamin D3) 25 MCG Tab PO SCH (09:17)
[2022-08-05] MEDS: Metoprolol Tartrate 25 MG Tab PO SCH ×2 (09:18→20:19)
[2022-08-05] MEDS: Digoxin 125 MCG Tab PO SCH (09:18)
[2022-08-05] MEDS: Lidocaine 4% 1 each Patch TOP SCH (09:19)
[2022-08-05] MEDS: Ipratropium 0.06% Nasal Spray 15 ML Bottle NASBOTH SCH ×2 (09:19→20:21)
[2022-08-05] MEDS: Nystatin Susp 100,000 Unit/ML 5 ML UD Cup PO SCH ×3 (09:19→20:22)
[2022-08-05] MEDS: Acetaminophen 325 MG Tab PO PRN (13:39)
[2022-08-05] MEDS ORDERED: Loperamide 2 MG Cap PO PRN (16:52)
[2022-08-05] MEDS: Gabapentin 100 MG Cap PO SCH (20:20)
[2022-08-05] MEDS: Simvastatin 10 MG Tab PO SCH (20:20)
[2022-08-06] MEDS: Acetaminophen 325 MG Tab PO PRN (06:59)
[2022-08-06] MEDS: Tiotropium Bromide 4 GM Inhalation Spray (2.5mcg/1 dose; 10 doses) INH SCH (06:59)
[2022-08-06] MEDS: Levothyroxine 50 MCG Tab PO SCH (06:59)
[2022-08-06] MEDS: Formoterol/Mometasone 100-5 MCG 8.8 GM Inhaler IH SCH ×2 (06:59→20:19)
[2022-08-06 08:28] LABS: HEMATOCRIT 36.4 % (33.0-47.0); HEMOGLOBIN 11.6 g/dL (12.0-16.0); MEAN CORPUSCULAR HEMOGLOBIN 28.2 pg (26.0-32.0); MEAN CORPUSCULAR HGB CONC 31.9 g/dL (32.0-36.0); MEAN CORPUSCULAR VOLUME 88.6 fL (78.0-93.0); RED BLOOD CELL COUNT 4.11 x10^6/uL (4.00-5.50); WHITE BLOOD CELL COUNT,WBC 8.1 x10^3/uL (4.0-10.0)
[2022-08-06] MEDS: Lidocaine 4% 1 each Patch TOP SCH (08:28)
[2022-08-06] MEDS: Apixaban 2.5 MG Tab PO SCH ×2 (08:29→20:18)
[2022-08-06] MEDS: Sertraline 25 MG Tab PO SCH (08:29)
[2022-08-06] MEDS: Nystatin Susp 100,000 Unit/ML 5 ML UD Cup PO SCH ×3 (08:29→20:18)
[2022-08-06] MEDS: Digoxin 125 MCG Tab PO SCH (08:30)
[2022-08-06] MEDS: Metoprolol Tartrate 25 MG Tab PO SCH ×2 (08:31→20:18)
[2022-08-06] MEDS: Cholecalciferol (Vitamin D3) 25 MCG Tab PO SCH (08:31)
[2022-08-06] MEDS: Ipratropium 0.06% Nasal Spray 15 ML Bottle NASBOTH SCH ×2 (08:32→20:21)
[2022-08-06] MEDS: Diltiazem 120 MG Cap.CD PO SCH (08:32)
[2022-08-06] MEDS: Gabapentin 100 MG Cap PO SCH (20:18)
[2022-08-06] MEDS: Simvastatin 10 MG Tab PO SCH (20:18)
[2022-08-07] MEDS: Tiotropium Bromide 4 GM Inhalation Spray (2.5mcg/1 dose; 10 doses) INH SCH (06:13)
[2022-08-07] MEDS: Levothyroxine 50 MCG Tab PO SCH (06:13)
[2022-08-07] MEDS: Formoterol/Mometasone 100-5 MCG 8.8 GM Inhaler IH SCH ×2 (06:13→20:02)
[2022-08-07] MEDS: Sertraline 25 MG Tab PO SCH (09:12)
[2022-08-07] MEDS: Diltiazem 120 MG Cap.CD PO SCH (09:12)
[2022-08-07] MEDS: Nystatin Susp 100,000 Unit/ML 5 ML UD Cup PO SCH ×3 (09:12→20:03)
[2022-08-07] MEDS: Ipratropium 0.06% Nasal Spray 15 ML Bottle NASBOTH SCH ×2 (09:12→20:02)
[2022-08-07] MEDS: Lidocaine 4% 1 each Patch TOP SCH (09:13)
[2022-08-07] MEDS: Apixaban 2.5 MG Tab PO SCH ×2 (09:13→20:03)
[2022-08-07] MEDS: Digoxin 125 MCG Tab PO SCH (09:13)
[2022-08-07] MEDS: Metoprolol Tartrate 25 MG Tab PO SCH ×2 (09:13→20:03)
[2022-08-07] MEDS: Cholecalciferol (Vitamin D3) 25 MCG Tab PO SCH (09:13)
[2022-08-07] MEDS: Gabapentin 100 MG Cap PO SCH (20:03)
[2022-08-07] MEDS: Simvastatin 10 MG Tab PO SCH (20:04)
[2022-08-08] MEDS: Formoterol/Mometasone 100-5 MCG 8.8 GM Inhaler IH SCH ×2 (06:16→20:29)
[2022-08-08] MEDS: Levothyroxine 50 MCG Tab PO SCH (06:16)
[2022-08-08] MEDS: Tiotropium Bromide 4 GM Inhalation Spray (2.5mcg/1 dose; 10 doses) INH SCH (06:16)
[2022-08-08] MEDS: Ipratropium 0.06% Nasal Spray 15 ML Bottle NASBOTH SCH ×2 (08:53→20:29)
[2022-08-08] MEDS: Nystatin Susp 100,000 Unit/ML 5 ML UD Cup PO SCH ×3 (08:53→20:29)
[2022-08-08] MEDS: Lidocaine 4% 1 each Patch TOP SCH (08:53)
[2022-08-08] MEDS: Sertraline 25 MG Tab PO SCH (08:54)
[2022-08-08] MEDS: Metoprolol Tartrate 25 MG Tab PO SCH ×2 (08:54→20:32)
[2022-08-08] MEDS: Cholecalciferol (Vitamin D3) 25 MCG Tab PO SCH (08:54)
[2022-08-08] MEDS: Apixaban 2.5 MG Tab PO SCH ×2 (08:55→20:29)
[2022-08-08] MEDS: Digoxin 125 MCG Tab PO SCH (08:55)
[2022-08-08] MEDS: Diltiazem 120 MG Cap.CD PO SCH (08:55)
[2022-08-08] MEDS: Simvastatin 10 MG Tab PO SCH (20:29)
[2022-08-08] MEDS: Acetaminophen 325 MG Tab PO PRN (20:30)
[2022-08-08] MEDS: Gabapentin 100 MG Cap PO SCH (20:30)
[2022-08-09] MEDS: Tiotropium Bromide 4 GM Inhalation Spray (2.5mcg/1 dose; 10 doses) INH SCH (06:05)
[2022-08-09] MEDS: Levothyroxine 50 MCG Tab PO SCH (06:05)
[2022-08-09] MEDS: Formoterol/Mometasone 100-5 MCG 8.8 GM Inhaler IH SCH ×2 (06:05→20:37)
[2022-08-09 06:57] LABS: HEMATOCRIT 35.4 % (33.0-47.0); HEMOGLOBIN 11.5 g/dL (12.0-16.0); MEAN CORPUSCULAR HEMOGLOBIN 28.7 pg (26.0-32.0); MEAN CORPUSCULAR HGB CONC 32.5 g/dL (32.0-36.0); MEAN CORPUSCULAR VOLUME 88.3 fL (78.0-93.0); RED BLOOD CELL COUNT 4.01 x10^6/uL (4.00-5.50); WHITE BLOOD CELL COUNT,WBC 7.8 x10^3/uL (4.0-10.0)
[2022-08-09] MEDS: Lidocaine 4% 1 each Patch TOP SCH (08:33)
[2022-08-09] MEDS: Nystatin Susp 100,000 Unit/ML 5 ML UD Cup PO SCH ×3 (08:33→20:33)
[2022-08-09] MEDS: Ipratropium 0.06% Nasal Spray 15 ML Bottle NASBOTH SCH ×2 (08:33→20:34)
[2022-08-09] MEDS: Digoxin 125 MCG Tab PO SCH (08:34)
[2022-08-09] MEDS: Sertraline 25 MG Tab PO SCH (08:34)
[2022-08-09] MEDS: Diltiazem 120 MG Cap.CD PO SCH (08:34)
[2022-08-09] MEDS: Cholecalciferol (Vitamin D3) 25 MCG Tab PO SCH (08:34)
[2022-08-09] MEDS: Metoprolol Tartrate 25 MG Tab PO SCH ×2 (08:35→20:33)
[2022-08-09] MEDS: Apixaban 2.5 MG Tab PO SCH ×2 (08:35→20:33)
[2022-08-09] MEDS: Gabapentin 100 MG Cap PO SCH (20:33)
[2022-08-09] MEDS: Simvastatin 10 MG Tab PO SCH (20:33)
[2022-08-10] MEDS: Formoterol/Mometasone 100-5 MCG 8.8 GM Inhaler IH SCH ×2 (06:35→20:21)
[2022-08-10] MEDS: Levothyroxine 50 MCG Tab PO SCH (06:35)
[2022-08-10] MEDS: Tiotropium Bromide 4 GM Inhalation Spray (2.5mcg/1 dose; 10 doses) INH SCH (06:36)
[2022-08-10] MEDS: Lidocaine 4% 1 each Patch TOP SCH (08:08)
[2022-08-10] MEDS: Nystatin Susp 100,000 Unit/ML 5 ML UD Cup PO SCH ×3 (08:09→20:23)
[2022-08-10] MEDS: Cholecalciferol (Vitamin D3) 25 MCG Tab PO SCH (08:10)
[2022-08-10] MEDS: Metoprolol Tartrate 25 MG Tab PO SCH ×2 (08:10→20:26)
[2022-08-10] MEDS: Digoxin 125 MCG Tab PO SCH (08:11)
[2022-08-10] MEDS: Apixaban 2.5 MG Tab PO SCH ×2 (08:12→20:26)
[2022-08-10] MEDS: Diltiazem 120 MG Cap.CD PO SCH (08:12)
[2022-08-10] MEDS: Sertraline 25 MG Tab PO SCH (08:12)
[2022-08-10] MEDS: Ipratropium 0.06% Nasal Spray 15 ML Bottle NASBOTH SCH ×2 (09:13→20:21)
[2022-08-10] MEDS: Simvastatin 10 MG Tab PO SCH (20:26)
[2022-08-10] MEDS: Gabapentin 100 MG Cap PO SCH (20:27)
[2022-08-11] MEDS: Acetaminophen 325 MG Tab PO PRN ×2 (06:15→20:12)
[2022-08-11] MEDS: Formoterol/Mometasone 100-5 MCG 8.8 GM Inhaler IH SCH ×2 (06:15→20:11)
[2022-08-11] MEDS: Tiotropium Bromide 4 GM Inhalation Spray (2.5mcg/1 dose; 10 doses) INH SCH (06:15)
[2022-08-11] MEDS: Levothyroxine 50 MCG Tab PO SCH (06:15)
[2022-08-11] MEDS: Apixaban 2.5 MG Tab PO SCH ×2 (08:14→20:11)
[2022-08-11] MEDS: Diltiazem 120 MG Cap.CD PO SCH (08:14)
[2022-08-11] MEDS: Sertraline 25 MG Tab PO SCH (08:14)
[2022-08-11] MEDS: Cholecalciferol (Vitamin D3) 25 MCG Tab PO SCH (08:14)
[2022-08-11] MEDS: Digoxin 125 MCG Tab PO SCH (08:15)
[2022-08-11] MEDS: Metoprolol Tartrate 25 MG Tab PO SCH ×2 (08:15→20:12)
[2022-08-11] MEDS: Nystatin Susp 100,000 Unit/ML 5 ML UD Cup PO SCH ×3 (08:16→20:11)
[2022-08-11] MEDS: Lidocaine 4% 1 each Patch TOP SCH (09:34)
[2022-08-11] MEDS: Ipratropium 0.06% Nasal Spray 15 ML Bottle NASBOTH SCH ×2 (09:35→20:13)
[2022-08-11] MEDS: Simvastatin 10 MG Tab PO SCH (20:11)
[2022-08-11] MEDS: Gabapentin 100 MG Cap PO SCH (20:12)
[2022-08-12] MEDS: Formoterol/Mometasone 100-5 MCG 8.8 GM Inhaler IH SCH ×2 (06:15→20:10)
[2022-08-12] MEDS: Tiotropium Bromide 4 GM Inhalation Spray (2.5mcg/1 dose; 10 doses) INH SCH (06:16)
[2022-08-12] MEDS: Acetaminophen 325 MG Tab PO PRN (06:16)
[2022-08-12] MEDS: Levothyroxine 50 MCG Tab PO SCH (06:18)
[2022-08-12] MEDS: Lidocaine 4% 1 each Patch TOP SCH (08:36)
[2022-08-12] MEDS: Ipratropium 0.06% Nasal Spray 15 ML Bottle NASBOTH SCH ×2 (08:36→20:10)
[2022-08-12] MEDS: Sertraline 25 MG Tab PO SCH (08:37)
[2022-08-12] MEDS: Cholecalciferol (Vitamin D3) 25 MCG Tab PO SCH (08:37)
[2022-08-12] MEDS: Nystatin Susp 100,000 Unit/ML 5 ML UD Cup PO SCH ×3 (08:37→20:12)
[2022-08-12] MEDS: Apixaban 2.5 MG Tab PO SCH ×2 (08:37→20:08)
[2022-08-12] MEDS: Digoxin 125 MCG Tab PO SCH (08:40)
[2022-08-12] MEDS: Diltiazem 120 MG Cap.CD PO SCH (08:40)
[2022-08-12] MEDS: Metoprolol Tartrate 25 MG Tab PO SCH ×2 (08:41→20:08)
[2022-08-12] MEDS: Simvastatin 10 MG Tab PO SCH (20:07)
[2022-08-12] MEDS: Gabapentin 100 MG Cap PO SCH (20:08)
[2022-08-13] MEDS: Levothyroxine 50 MCG Tab PO SCH (06:10)
[2022-08-13] MEDS: Tiotropium Bromide 4 GM Inhalation Spray (2.5mcg/1 dose; 10 doses) INH SCH (06:11)
[2022-08-13] MEDS: Formoterol/Mometasone 100-5 MCG 8.8 GM Inhaler IH SCH ×2 (06:11→20:04)
[2022-08-13] MEDS: Metoprolol Tartrate 25 MG Tab PO SCH ×2 (08:14→20:05)
[2022-08-13] MEDS: Sertraline 25 MG Tab PO SCH (08:15)
[2022-08-13] MEDS: Apixaban 2.5 MG Tab PO SCH ×2 (08:15→20:05)
[2022-08-13] MEDS: Diltiazem 120 MG Cap.CD PO SCH (08:15)
[2022-08-13] MEDS: Digoxin 125 MCG Tab PO SCH (08:15)
[2022-08-13] MEDS: Lidocaine 4% 1 each Patch TOP SCH (08:16)
[2022-08-13] MEDS: Cholecalciferol (Vitamin D3) 25 MCG Tab PO SCH (08:17)
[2022-08-13] MEDS: Ipratropium 0.06% Nasal Spray 15 ML Bottle NASBOTH SCH ×2 (08:20→20:04)
[2022-08-13] MEDS: Nystatin Susp 100,000 Unit/ML 5 ML UD Cup PO SCH ×3 (08:20→20:06)
[2022-08-13] MEDS: Simvastatin 10 MG Tab PO SCH (20:05)
[2022-08-13] MEDS: Gabapentin 100 MG Cap PO SCH (20:05)
[2022-08-14] MEDS: Levothyroxine 50 MCG Tab PO SCH (06:06)
[2022-08-14] MEDS: Formoterol/Mometasone 100-5 MCG 8.8 GM Inhaler IH SCH (06:06)
[2022-08-14] MEDS: Tiotropium Bromide 4 GM Inhalation Spray (2.5mcg/1 dose; 10 doses) INH SCH (06:06)
[2022-08-14] MEDS: Apixaban 2.5 MG Tab PO SCH (08:02)
[2022-08-14] MEDS: Sertraline 25 MG Tab PO SCH (08:03)
[2022-08-14] MEDS: Digoxin 125 MCG Tab PO SCH (08:03)
[2022-08-14] MEDS: Cholecalciferol (Vitamin D3) 25 MCG Tab PO SCH (08:05)
[2022-08-14] MEDS: Diltiazem 120 MG Cap.CD PO SCH (08:05)
[2022-08-14] MEDS: Metoprolol Tartrate 25 MG Tab PO SCH (08:05)
[2022-08-14] MEDS: Nystatin Susp 100,000 Unit/ML 5 ML UD Cup PO SCH (08:06)
[2022-08-14] MEDS: Lidocaine 4% 1 each Patch TOP SCH (08:06)
[2022-08-14] MEDS: Ipratropium 0.06% Nasal Spray 15 ML Bottle NASBOTH SCH (08:06)
[2022-08-14 11:22] VITALS: BP 104/60; PULSE 70
== END 2022-08-14 12:45 | disposition home or self-care (01) | DRG 947 ==
LOC: VM.MS 14:49
PROVIDERS: ADMIT Nurse Practitioner Family; ATTEND Family Medicine
DX: R53.81 Other malaise (principal); J18.9 Pneumonia, unspecified organism; J96.21 Acute and chronic respiratory failure with hypoxia; J96.10 Chronic respiratory failure, unspecified whether with hypoxia or hypercapnia; I24.8 Other forms of acute ischemic heart disease; K86.2 Cyst of pancreas; B37.0 Candidal stomatitis; D62 Acute posthemorrhagic anemia; N39.0 Urinary tract infection, site not specified; J44.0 Chronic obstructive pulmonary disease with (acute) lower respiratory infection; S22.49XD Multiple fractures of ribs, unspecified side, subsequent encounter for fracture with routine healing; S36.039D Unspecified laceration of spleen, subsequent encounter; F41.9 Anxiety disorder, unspecified; J32.9 Chronic sinusitis, unspecified; E78.5 Hyperlipidemia, unspecified; I10 Essential (primary) hypertension; E03.9 Hypothyroidism, unspecified; M81.0 Age-related osteoporosis without current pathological fracture; M48.00 Spinal stenosis, site unspecified; I48.0 Paroxysmal atrial fibrillation; R91.8 Other nonspecific abnormal finding of lung field; I25.10 Atherosclerotic heart disease of native coronary artery without angina pectoris; F39 Unspecified mood [affective] disorder; G62.9 Polyneuropathy, unspecified; Z79.01 Long term (current) use of anticoagulants; Z79.899 Other long term (current) drug therapy
CPT/HCPCS: 36415; 71046; 80053; 81001; 83735; 85025; 85027; 87086; 87088; 87186; 94640; 94760; 97110-GP; 97116-GP; 97161-GP; 97165-GO; 97535-GO; A9270-GY; J1650; J7613-GY

== ENCOUNTER 2022-08-16 11:04 | Observation (INO) | payer MEDICARE, OTHER ==
[2022-08-16] MEDS ORDERED: Albuterol/Ipratropium 3.0-0.5 MG/3 ML Neb Soln NEB ONE (11:12)
[2022-08-16] MEDS ORDERED: Sodium Chloride 0.9% 10 ML Syringe FLUSH PRN (11:13)
[2022-08-16] MEDS ORDERED: Piperacillin/Tazobactam 4.5 GM in Sodium Chloride 0.9% 100 ML IV ONE (11:23)
[2022-08-16] MEDS ORDERED: methylPREDNISolone Sodium Succinate 125 MG/2 ML SDV IV ONE (11:36)
[2022-08-16 11:46] LABS: BASOPHILS PERCENT AUTO 0.3 % (0.2-1.2); EOSINOPHILS ABSOLUTE AUTO 0.1 x10^3/uL (0.0-0.5); EOSINOPHILS PERCENT AUTO 0.6 % (0.0-4.0); HEMATOCRIT 38.3 % (33.0-47.0); HEMOGLOBIN 12.3 g/dL (12.0-16.0); IMMATURE GRAN ABSOLUTE AUTO 0.03 x10^3/uL (0.00-0.07); LYMPHOCYTES ABSOLUTE AUTO 0.8 x10^3/uL (1.0-4.8); LYMPHOCYTES PERCENT AUTO 7.4 % (25.0-50.0); MEAN CORPUSCULAR HGB CONC 32.1 g/dL (32.0-36.0); MEAN CORPUSCULAR VOLUME 87.2 fL (78.0-93.0); MONOCYTES ABSOLUTE AUTO 1.5 x10^3/uL (0.0-0.8); NEUTROPHILS ABSOLUTE AUTO 8.8 x10^3/uL (1.8-7.7); PLATELET COUNT,PLT 559 x10^3/uL (130-400); RED BLOOD CELL COUNT 4.39 x10^6/uL (4.00-5.50); WHITE BLOOD CELL COUNT,WBC 11.3 x10^3/uL (4.0-10.0)
[2022-08-16 11:51] LABS: MONOCYTES PERCENT AUTO 13.4 % (2.0-11.0)
[2022-08-16 12:05] LABS: PROTHROMBIN TIME 11.1 SEC (9.5-12.2); PTT,PARTIAL THROMBOPLSTIN TIME 25.4 SEC (23.6-33.6)
[2022-08-16 12:16] LABS: LACTIC ACID 1.6 mmol/L (0.4-2.0)
[2022-08-16 12:21] LABS: A/G RATIO 0.87; ALANINE AMINOTRANSFERASE,ALT 24 U/L (14-59); ALBUMIN 3.3 g/dL (3.4-5.0); ALKALINE PHOSPHATASE 109 U/L (46-116); ASPARTATE AMNIOTRANSFERASE,AST 26 U/L (15-37); BILIRUBIN TOTAL 0.5 mg/dL (0.2-1.0); BLOOD UREA NITROGEN,BUN 10 mg/dL (7-18); C-REACTIVE PROTEIN 8.1 mg/dL (<=0.9); CALCIUM 9.4 mg/dL (8.5-10.1); CARBON DIOXIDE,CO2 33 mmol/L (21-32); CHLORIDE,CL 98 mmol/L (98-107); CREATININE 0.7 mg/dL (0.55-1.02); GLUCOSE RANDOM 180 mg/dL (70-99); MAGNESIUM 1.9 mg/dL (1.8-2.4); POTASSIUM,K 3.6 mmol/L (3.5-5.1); PRO B-TYPE NATRIUR PEPT,BNPPRO 610 pg/mL (<=450); PROTEIN TOTAL,TP 7.1 g/dL (6.4-8.2); SODIUM,NA 138 mmol/L (136-145)
[2022-08-16 12:22] LABS: ANION GAP 10.6 mmol/L (5-15); ESTIMATED GFR 86 mL/min (>=60)
[2022-08-16 12:32] LABS: CORONAVIRUS COVID-19 NAA NEGATIVE (NEGATIVE); INFLUENZA A NAA NEGATIVE (NEGATIVE); INFLUENZA B NAA NEGATIVE (NEGATIVE); RESPIRATORY SYNCYTIAL VIR NAA NEGATIVE (NEGATIVE)
[2022-08-16 13:06] LABS: BASE EXCESS ARTERIAL,POC 8 mmol/L ((-2)-3); HCO3 ARTERIAL,POC 32.3 mmol/L (21-28); O2 SATURATION ARTERIAL,POC 96.2 % (94-98); PCO2 ARTERIAL,POC 49 mmHg (35-48); PH ARTERIAL,POC 7.42 pH (7.35-7.45); PO2 ARTERIAL,POC 83 mmHg (83-108); TCO2 ARTERIAL,POC 31.3 mmol/L (22-29)
[2022-08-16] MEDS ORDERED: Iopamidol 755 Mg/ML 100 ML Bottle IVPUSH ONE (13:58)
[2022-08-16] MEDS ORDERED: Furosemide 20 MG/2 ML VIAL IV ONE (16:17)
[2022-08-16] MEDS ORDERED: Bisacodyl 10 MG Supp RECTAL PRN (16:17)
[2022-08-16] MEDS ORDERED: Acetaminophen 325 MG Tab PO PRN (16:17)
[2022-08-16] MEDS ORDERED: Polyethylene Glycol 3350 Powder 17 GM Packet PO PRN (16:17)
[2022-08-16] MEDS ORDERED: Hypromellose 0.3% Ophth Soln 15 ML Bottle EYEBOTH PRN (16:48)
[2022-08-16] MEDS ORDERED: Loratadine 10 MG Tab PO PRN (16:51)
[2022-08-16] MEDS: Albuterol/Ipratropium 3.0-0.5 MG/3 ML Neb Soln NEB SCH ×3 (17:15→23:55)
[2022-08-16] MEDS: Simvastatin 10 MG Tab PO SCH (20:29)
[2022-08-16] MEDS: Gabapentin 100 MG Cap PO SCH (20:29)
[2022-08-16] MEDS: Metoprolol Tartrate 25 MG Tab PO SCH (20:29)
[2022-08-16] MEDS: Budesonide 0.5 MG/2 ML Neb Susp NEB SCH (20:29)
[2022-08-16] MEDS: Apixaban 2.5 MG Tab PO SCH (20:30)
[2022-08-16] MEDS: Ipratropium 0.06% Nasal Spray 15 ML Bottle NASBOTH SCH (20:39)
[2022-08-17] MEDS: Albuterol/Ipratropium 3.0-0.5 MG/3 ML Neb Soln NEB SCH ×6 (05:46→22:08)
[2022-08-17] MEDS: Levothyroxine 50 MCG Tab PO SCH (06:08)
[2022-08-17 06:53] LABS: BASOPHILS PERCENT AUTO 0.2 % (0.2-1.2); HEMATOCRIT 34.6 % (33.0-47.0); IMMATURE GRAN ABSOLUTE AUTO 0.03 x10^3/uL (0.00-0.07); LYMPHOCYTES ABSOLUTE AUTO 0.9 x10^3/uL (1.0-4.8); LYMPHOCYTES PERCENT AUTO 8.6 % (25.0-50.0); MEAN CORPUSCULAR HEMOGLOBIN 27.8 pg (26.0-32.0); MEAN CORPUSCULAR HGB CONC 31.8 g/dL (32.0-36.0); MEAN CORPUSCULAR VOLUME 87.6 fL (78.0-93.0); MONOCYTES ABSOLUTE AUTO 1.2 x10^3/uL (0.0-0.8); MONOCYTES PERCENT AUTO 11.3 % (2.0-11.0); NEUTROPHILS ABSOLUTE AUTO 8.6 x10^3/uL (1.8-7.7); NEUTROPHILS PERCENT AUTO 79.6 % (50.0-80.0); PLATELET COUNT,PLT 541 x10^3/uL (130-400); RED BLOOD CELL COUNT 3.95 x10^6/uL (4.00-5.50); WHITE BLOOD CELL COUNT,WBC 10.8 x10^3/uL (4.0-10.0)
[2022-08-17 07:03] LABS: CALCIUM 9.3 mg/dL (8.5-10.1); CREATININE 0.7 mg/dL (0.55-1.02); EST CRCL DRUG DOSING (CG) 54.29 mL/min; POTASSIUM,K 3.5 mmol/L (3.5-5.1)
[2022-08-17 07:09] LABS: ANION GAP 10.5 mmol/L (5-15)
[2022-08-17] MEDS: Budesonide 0.5 MG/2 ML Neb Susp NEB SCH ×2 (07:17→20:01)
[2022-08-17] MEDS: Sertraline 25 MG Tab PO SCH (08:36)
[2022-08-17] MEDS: Apixaban 2.5 MG Tab PO SCH ×2 (08:36→20:02)
[2022-08-17] MEDS: predniSONE 20 MG Tab PO SCH (08:37)
[2022-08-17] MEDS: Metoprolol Tartrate 25 MG Tab PO SCH ×2 (08:37→20:03)
[2022-08-17] MEDS: Diltiazem 120 MG Cap.CD PO SCH (08:38)
[2022-08-17] MEDS: Digoxin 125 MCG Tab PO SCH (08:38)
[2022-08-17] MEDS: Lidocaine 4% 1 each Patch TOP SCH (08:48)
[2022-08-17] MEDS ORDERED: Levothyroxine 50 MCG Tab PO SCH (09:00)
[2022-08-17] MEDS: Ipratropium 0.06% Nasal Spray 15 ML Bottle NASBOTH SCH ×3 (10:08→20:03)
[2022-08-17] MEDS: Furosemide 20 MG Tab PO SCH (13:18)
[2022-08-17] MEDS: Doxycycline Monohydrate 100 MG Cap PO SCH ×2 (13:18→20:03)
[2022-08-17] MEDS: Polyethylene Glycol 3350 Powder 17 GM Packet PO SCH (13:34)
[2022-08-17] MEDS ORDERED: cefTRIAXone 1 GM Vial IVPUSH SCH (18:00)
[2022-08-17] MEDS: Gabapentin 100 MG Cap PO SCH (20:01)
[2022-08-17] MEDS: Simvastatin 10 MG Tab PO SCH (20:02)
[2022-08-18] MEDS: Albuterol/Ipratropium 3.0-0.5 MG/3 ML Neb Soln NEB SCH ×3 (06:15→11:03)
[2022-08-18] MEDS: Levothyroxine 50 MCG Tab PO SCH (06:19)
[2022-08-18] MEDS: Budesonide 0.5 MG/2 ML Neb Susp NEB SCH (06:19)
[2022-08-18 06:53] LABS: BASOPHILS PERCENT AUTO 0.1 % (0.2-1.2); EOSINOPHILS PERCENT AUTO 0.1 % (0.0-4.0); HEMATOCRIT 33.3 % (33.0-47.0); HEMOGLOBIN 10.7 g/dL (12.0-16.0); IMMATURE GRAN ABSOLUTE AUTO 0.06 x10^3/uL (0.00-0.07); LYMPHOCYTES ABSOLUTE AUTO 1.9 x10^3/uL (1.0-4.8); LYMPHOCYTES PERCENT AUTO 11.8 % (25.0-50.0); MEAN CORPUSCULAR HEMOGLOBIN 28.1 pg (26.0-32.0); MEAN CORPUSCULAR HGB CONC 32.1 g/dL (32.0-36.0); MEAN CORPUSCULAR VOLUME 87.4 fL (78.0-93.0); MONOCYTES ABSOLUTE AUTO 2.4 x10^3/uL (0.0-0.8); MONOCYTES PERCENT AUTO 14.9 % (2.0-11.0); NEUTROPHILS ABSOLUTE AUTO 11.4 x10^3/uL (1.8-7.7); NEUTROPHILS PERCENT AUTO 72.7 % (50.0-80.0); PLATELET COUNT,PLT 543 x10^3/uL (130-400); RED BLOOD CELL COUNT 3.81 x10^6/uL (4.00-5.50)
[2022-08-18 06:59] LABS: WHITE BLOOD CELL COUNT,WBC 15.7 x10^3/uL (4.0-10.0)
[2022-08-18 07:07] LABS: ANION GAP 8.4 mmol/L (5-15); CALCIUM 9.1 mg/dL (8.5-10.1); CREATININE 0.7 mg/dL (0.55-1.02); EST CRCL DRUG DOSING (CG) 54.29 mL/min; POTASSIUM,K 3.4 mmol/L (3.5-5.1)
[2022-08-18] MEDS: Lidocaine 4% 1 each Patch TOP SCH (08:15)
[2022-08-18] MEDS: Doxycycline Monohydrate 100 MG Cap PO SCH (08:19)
[2022-08-18] MEDS: Polyethylene Glycol 3350 Powder 17 GM Packet PO SCH (08:19)
[2022-08-18] MEDS: Furosemide 20 MG Tab PO SCH (08:20)
[2022-08-18] MEDS: Apixaban 2.5 MG Tab PO SCH (08:21)
[2022-08-18] MEDS: Sertraline 25 MG Tab PO SCH (08:21)
[2022-08-18] MEDS: predniSONE 20 MG Tab PO SCH (08:22)
[2022-08-18] MEDS: Digoxin 125 MCG Tab PO SCH (08:23)
[2022-08-18] MEDS: Diltiazem 120 MG Cap.CD PO SCH (08:24)
[2022-08-18] MEDS: Metoprolol Tartrate 25 MG Tab PO SCH (08:24)
[2022-08-18] MEDS: Ipratropium 0.06% Nasal Spray 15 ML Bottle NASBOTH SCH (08:29)
[2022-08-18 10:00] VITALS: BP 121/59; PULSE 70
== END 2022-08-18 12:45 | disposition home health service (06) ==
LOC: VM.ED 11:04 → VM.MS 13:33
PROVIDERS: ADMIT Family Medicine; ATTEND Family Medicine
DX: J96.21 Acute and chronic respiratory failure with hypoxia (principal); J44.1 Chronic obstructive pulmonary disease with (acute) exacerbation; J90 Pleural effusion, not elsewhere classified; J32.9 Chronic sinusitis, unspecified; K59.00 Constipation, unspecified; M48.00 Spinal stenosis, site unspecified; I10 Essential (primary) hypertension; M81.0 Age-related osteoporosis without current pathological fracture; I48.91 Unspecified atrial fibrillation; E78.00 Pure hypercholesterolemia, unspecified; E03.9 Hypothyroidism, unspecified; F41.9 Anxiety disorder, unspecified; K21.9 Gastro-esophageal reflux disease without esophagitis; Z20.822 Contact with and (suspected) exposure to COVID-19; Z79.890 Hormone replacement therapy; Z79.899 Other long term (current) drug therapy; Z90.49 Acquired absence of other specified parts of digestive tract; Z90.710 Acquired absence of both cervix and uterus; Z98.890 Other specified postprocedural states; Z87.891 Personal history of nicotine dependence; Z79.01 Long term (current) use of anticoagulants; Z79.51 Long term (current) use of inhaled steroids; Z79.2 Long term (current) use of antibiotics
CPT/HCPCS: 0241U; 36415; 36600; 71045; 71046; 71275; 80048; 80053; 82803; 83605; 83735; 83880; 84484; 85025; 85379; 85610; 85730; 86140; 87040; 92610-GN; 93005; 94640; 94760; 96365; 96375; 97161-GP; 97165-GO; 97535-GO; 99285-25; A9270-GY; J1940; J2543; J2930; J3490; J7512; J7620-GY; Q9967

== ENCOUNTER 2022-09-22 20:57 | Emergency (ER) | payer MEDICARE, OTHER ==
[2022-09-22] MEDS ORDERED: Sodium Chloride 0.9% 10 ML Syringe FLUSH PRN (21:24)
[2022-09-22] MEDS ORDERED: Albuterol/Ipratropium 3.0-0.5 MG/3 ML Neb Soln NEB ONE (21:27)
[2022-09-22] MEDS ORDERED: methylPREDNISolone Sodium Succinate 125 MG/2 ML SDV IV ONE (21:27)
[2022-09-22 21:40] LABS: BASOPHILS PERCENT AUTO 0.2 % (0.2-1.2); EOSINOPHILS ABSOLUTE AUTO 0.2 x10^3/uL (0.0-0.5); EOSINOPHILS PERCENT AUTO 1.3 % (0.0-4.0); HEMATOCRIT 40.1 % (33.0-47.0); HEMOGLOBIN 12.8 g/dL (12.0-16.0); IMMATURE GRAN ABSOLUTE AUTO 0.03 x10^3/uL (0.00-0.07); LYMPHOCYTES ABSOLUTE AUTO 2.4 x10^3/uL (1.0-4.8); LYMPHOCYTES PERCENT AUTO 18.2 % (25.0-50.0); MEAN CORPUSCULAR HEMOGLOBIN 26.7 pg (26.0-32.0); MEAN CORPUSCULAR HGB CONC 31.9 g/dL (32.0-36.0); MEAN CORPUSCULAR VOLUME 83.5 fL (78.0-93.0); MONOCYTES ABSOLUTE AUTO 1.9 x10^3/uL (0.0-0.8); NEUTROPHILS ABSOLUTE AUTO 8.5 x10^3/uL (1.8-7.7); NEUTROPHILS PERCENT AUTO 65.3 % (50.0-80.0); PLATELET COUNT,PLT 575 x10^3/uL (130-400); WHITE BLOOD CELL COUNT,WBC 13.1 x10^3/uL (4.0-10.0)
[2022-09-22 21:53] LABS: HCO3 VENOUS,POC 33 mmol/L (22-29); O2 SATURATION VENOUS,POC 89 %; PCO2 VENOUS,POC 48 mmHg (41-51); PH VENOUS,POC 7.44 pH (7.32-7.43); PO2 VENOUS,POC 55 mmHg
[2022-09-22 21:58] LABS: INR 1.1 (2.0-3.5); PROTHROMBIN TIME 11.6 SEC (9.5-12.2); PTT,PARTIAL THROMBOPLSTIN TIME 31.7 SEC (23.6-33.6)
[2022-09-22 22:01] LABS: MONOCYTES PERCENT AUTO 14.8 % (2.0-11.0)
[2022-09-22 22:02] LABS: LACTIC ACID 1.4 mmol/L (0.4-2.0)
[2022-09-22 22:16] LABS: A/G RATIO 0.94; ALBUMIN 3.4 g/dL (3.4-5.0); BILIRUBIN TOTAL 0.5 mg/dL (0.2-1.0); C-REACTIVE PROTEIN 3.1 mg/dL (<=0.9); CALCIUM 9.2 mg/dL (8.5-10.1); CREATININE 0.6 mg/dL (0.55-1.02); EST CRCL DRUG DOSING (CG) 59.52 mL/min; MAGNESIUM 1.9 mg/dL (1.8-2.4); PHOSPHORUS 3.4 mg/dL (2.6-4.7); POTASSIUM,K 3.2 mmol/L (3.5-5.1)
[2022-09-22 22:17] LABS: ANION GAP 13.2 mmol/L (5-15)
[2022-09-22] MEDS ORDERED: Take Home: Doxycycline 100 MG Cap, 4 Cap Pack PO ONE (22:34)
[2022-09-22] MEDS ORDERED: Take Home: predniSONE 20 MG, 2 Tab Pack PO ONE (22:34)
[2022-09-23 00:16] VITALS: BP 135/80
[2022-09-23 00:17] VITALS: PULSE 90
== END 2022-09-22 23:00 | disposition home or self-care (01) ==
LOC: VM.ED 20:57
DX: J44.1 Chronic obstructive pulmonary disease with (acute) exacerbation (principal); I10 Essential (primary) hypertension; I48.91 Unspecified atrial fibrillation; E78.00 Pure hypercholesterolemia, unspecified; E03.9 Hypothyroidism, unspecified; Z86.16 Personal history of COVID-19; Z79.899 Other long term (current) drug therapy; Z79.01 Long term (current) use of anticoagulants
CPT/HCPCS: 36415; 71045; 80053; 82803; 83605; 83735; 83880; 84100; 84145; 84484; 85025; 85610; 85730; 86140; 87040; 93005; 93010; 94640; 94760; 96374; 99284; 99285-25; A9270-GY; J2930; J7512; J7620-GY

== ENCOUNTER 2022-10-31 08:38 | Emergency (ER) | payer MEDICARE, OTHER ==
[2022-10-31 08:54] VITALS: BP 134/71; PULSE 102
[2022-10-31 09:16] LABS: BASOPHILS PERCENT AUTO 0.4 % (0.2-1.2); EOSINOPHILS ABSOLUTE AUTO 0.1 x10^3/uL (0.0-0.5); EOSINOPHILS PERCENT AUTO 0.7 % (0.0-4.0); HEMOGLOBIN 13.4 g/dL (12.0-16.0); IMMATURE GRAN ABSOLUTE AUTO 0.02 x10^3/uL (0.00-0.07); LYMPHOCYTES ABSOLUTE AUTO 1.3 x10^3/uL (1.0-4.8); LYMPHOCYTES PERCENT AUTO 13.1 % (25.0-50.0); MEAN CORPUSCULAR HGB CONC 32.7 g/dL (32.0-36.0); MEAN CORPUSCULAR VOLUME 82.7 fL (78.0-93.0); MONOCYTES ABSOLUTE AUTO 1.3 x10^3/uL (0.0-0.8); MONOCYTES PERCENT AUTO 13.1 % (2.0-11.0); NEUTROPHILS ABSOLUTE AUTO 7.1 x10^3/uL (1.8-7.7); NEUTROPHILS PERCENT AUTO 72.5 % (50.0-80.0); PLATELET COUNT,PLT 449 x10^3/uL (130-400); RED BLOOD CELL COUNT 4.96 x10^6/uL (4.00-5.50); WHITE BLOOD CELL COUNT,WBC 9.9 x10^3/uL (4.0-10.0)
[2022-10-31 09:36] LABS: A/G RATIO 1.03; ALANINE AMINOTRANSFERASE,ALT 11 U/L (14-59); ALBUMIN 3.4 g/dL (3.4-5.0); ALKALINE PHOSPHATASE 89 U/L (46-116); ASPARTATE AMNIOTRANSFERASE,AST 13 U/L (15-37); BILIRUBIN TOTAL 0.5 mg/dL (0.2-1.0); BLOOD UREA NITROGEN,BUN 5 mg/dL (7-18); C-REACTIVE PROTEIN 1.96 mg/dL (<=0.30); CALCIUM 9.2 mg/dL (8.5-10.1); CARBON DIOXIDE,CO2 34 mmol/L (21-32); CHLORIDE,CL 100 mmol/L (98-107); CREATININE 0.6 mg/dL (0.55-1.02); GLUCOSE RANDOM 112 mg/dL (70-99); POTASSIUM,K 3.6 mmol/L (3.5-5.1); PROTEIN TOTAL,TP 6.7 g/dL (6.4-8.2); SODIUM,NA 140 mmol/L (136-145)
[2022-10-31 09:37] LABS: ANION GAP 9.6 mmol/L (5-15); ESTIMATED GFR 88 mL/min (>=60)
== END 2022-10-31 10:22 | disposition home or self-care (01) ==
LOC: VM.ED 08:38
DX: J44.9 Chronic obstructive pulmonary disease, unspecified (principal); I48.91 Unspecified atrial fibrillation; K21.9 Gastro-esophageal reflux disease without esophagitis; I10 Essential (primary) hypertension; E78.00 Pure hypercholesterolemia, unspecified; Z79.899 Other long term (current) drug therapy; Z79.01 Long term (current) use of anticoagulants; Z87.891 Personal history of nicotine dependence
CPT/HCPCS: 36415; 71046; 80053; 85025; 86140; 99284; 99285

== ENCOUNTER 2022-12-01 22:18 | Inpatient (IN) | payer MEDICARE, OTHER ==
[2022-12-01 23:05] LABS: BASOPHILS PERCENT AUTO 0.2 % (0.2-1.2); EOSINOPHILS ABSOLUTE AUTO 0.5 x10^3/uL (0.0-0.5); EOSINOPHILS PERCENT AUTO 3.6 % (0.0-4.0); HEMATOCRIT 41.2 % (33.0-47.0); HEMOGLOBIN 13.8 g/dL (12.0-16.0); IMMATURE GRAN ABSOLUTE AUTO 0.01 x10^3/uL (0.00-0.07); LYMPHOCYTES ABSOLUTE AUTO 1.3 x10^3/uL (1.0-4.8); LYMPHOCYTES PERCENT AUTO 8.6 % (25.0-50.0); MEAN CORPUSCULAR HEMOGLOBIN 28.1 pg (26.0-32.0); MEAN CORPUSCULAR HGB CONC 33.5 g/dL (32.0-36.0); MEAN CORPUSCULAR VOLUME 83.9 fL (78.0-93.0); MONOCYTES PERCENT AUTO 13.2 % (2.0-11.0); NEUTROPHILS ABSOLUTE AUTO 10.9 x10^3/uL (1.8-7.7); NEUTROPHILS PERCENT AUTO 74.3 % (50.0-80.0); PLATELET COUNT,PLT 412 x10^3/uL (130-400); RED BLOOD CELL COUNT 4.91 x10^6/uL (4.00-5.50); WHITE BLOOD CELL COUNT,WBC 14.7 x10^3/uL (4.0-10.0)
[2022-12-01] MEDS ORDERED: methylPREDNISolone Sodium Succinate 125 MG/2 ML SDV IVPUSH ONE (23:11)
[2022-12-01 23:15] LABS: MONOCYTES ABSOLUTE AUTO 1.9 x10^3/uL (0.0-0.8)
[2022-12-01 23:25] LABS: A/G RATIO 1.09; ALBUMIN 3.5 g/dL (3.4-5.0); BILIRUBIN TOTAL 0.4 mg/dL (0.2-1.0); C-REACTIVE PROTEIN 2.09 mg/dL (<=0.30); CALCIUM 9.9 mg/dL (8.5-10.1); CREATININE 0.6 mg/dL (0.55-1.02); EST CRCL DRUG DOSING (CG) 56.98 mL/min; PROTEIN TOTAL,TP 6.7 g/dL (6.4-8.2)
[2022-12-01 23:33] LABS: ANION GAP 6.7 mmol/L (5-15)
[2022-12-01 23:34] LABS: POTASSIUM,K 2.7 mmol/L (3.5-5.1)
[2022-12-01] MEDS ORDERED: Potassium Chloride Riders 20 MEQ in Premix Bag 1 BAG IV ONE (23:35)
[2022-12-01] MEDS ORDERED: cefTRIAXone 1 GM Vial IVPUSH ONE (23:37)
[2022-12-01] MEDS ORDERED: Sodium Chloride 0.9% 250 ML IV SCH (23:45)
[2022-12-01] MEDS ORDERED: Ondansetron 4 MG Tab.DIS PO PRN (23:52)
[2022-12-01] MEDS ORDERED: Acetaminophen 325 MG Tab PO PRN (23:52)
[2022-12-01] MEDS: Potassium Chloride 10 MEQ Tab.ER PO SCH (23:53)
[2022-12-01] MEDS ORDERED: Sennosides/Docusate Sodium 50-8.6 MG Tab PO PRN (23:59)
[2022-12-01] MEDS ORDERED: Polyethylene Glycol 3350 Powder 17 GM Packet PO PRN (23:59)
[2022-12-01] MEDS ORDERED: Hypromellose 0.3% Ophth Soln 15 ML Bottle EYEBOTH PRN (23:59)
[2022-12-01] MEDS ORDERED: Bisacodyl 10 MG Supp RECTAL PRN (23:59)
[2022-12-01] MEDS ORDERED: Albuterol/Ipratropium 3.0-0.5 MG/3 ML Neb Soln NEB PRN (23:59)
[2022-12-01] MEDS ORDERED: Loratadine 10 MG Tab PO PRN (23:59)
[2022-12-02] MEDS ORDERED: Sodium Chloride 0.9% 250 ML IV PRN (01:04)
[2022-12-02] MEDS: Budesonide 0.5 MG/2 ML Neb Susp NEB SCH ×2 (07:22→20:43)
[2022-12-02] MEDS: Apixaban 2.5 MG Tab PO SCH ×2 (08:23→20:45)
[2022-12-02] MEDS: Furosemide 20 MG Tab PO SCH (08:23)
[2022-12-02] MEDS: Diltiazem 120 MG Cap.CD PO SCH (08:23)
[2022-12-02] MEDS: Azithromycin 250 MG Tab PO SCH (08:23)
[2022-12-02] MEDS: Levothyroxine 50 MCG Tab PO SCH (08:24)
[2022-12-02] MEDS: Sertraline 25 MG Tab PO SCH (08:24)
[2022-12-02] MEDS: Metoprolol Tartrate 25 MG Tab PO SCH ×2 (08:24→20:51)
[2022-12-02] MEDS: Cholecalciferol (Vitamin D3) 25 MCG Tab PO SCH (08:25)
[2022-12-02] MEDS: Potassium Chloride 10 MEQ Tab.ER PO SCH ×2 (08:25→18:32)
[2022-12-02] MEDS: Lidocaine 4% 1 each Patch TOP SCH (08:25)
[2022-12-02 08:27] LABS: BASOPHILS PERCENT AUTO 0.1 % (0.2-1.2); HEMATOCRIT 43.8 % (33.0-47.0); HEMOGLOBIN 14.5 g/dL (12.0-16.0); IMMATURE GRAN ABSOLUTE AUTO 0.01 x10^3/uL (0.00-0.07); LYMPHOCYTES PERCENT AUTO 4.1 % (25.0-50.0); MEAN CORPUSCULAR HEMOGLOBIN 28.1 pg (26.0-32.0); MEAN CORPUSCULAR HGB CONC 33.1 g/dL (32.0-36.0); MEAN CORPUSCULAR VOLUME 84.9 fL (78.0-93.0); MONOCYTES PERCENT AUTO 0.4 % (2.0-11.0); NEUTROPHILS PERCENT AUTO 95.3 % (50.0-80.0); PLATELET COUNT,PLT 443 x10^3/uL (130-400); RED BLOOD CELL COUNT 5.16 x10^6/uL (4.00-5.50); WHITE BLOOD CELL COUNT,WBC 8.4 x10^3/uL (4.0-10.0)
[2022-12-02] MEDS: Digoxin 125 MCG Tab PO SCH (08:29)
[2022-12-02] MEDS: Ipratropium 0.06% Nasal Spray 15 ML Bottle NASBOTH SCH ×2 (08:32→20:58)
[2022-12-02 08:34] LABS: C-REACTIVE PROTEIN 2.34 mg/dL (<=0.30); CALCIUM 9.6 mg/dL (8.5-10.1); CREATININE 0.7 mg/dL (0.55-1.02); EST CRCL DRUG DOSING (CG) 46.75 mL/min; POTASSIUM,K 3.6 mmol/L (3.5-5.1)
[2022-12-02 08:35] LABS: ANION GAP 7.6 mmol/L (5-15)
[2022-12-02] MEDS: Ipratropium 0.02% 0.5 MG/2.5 ML Neb Soln INH SCH ×2 (08:51→20:43)
[2022-12-02] MEDS: Arformoterol 15 MCG/2 ML Neb Soln INH SCH ×2 (08:52→20:43)
[2022-12-02 08:54] LABS: LYMPHOCYTES ABSOLUTE AUTO 0.3 x10^3/uL (1.0-4.8)
[2022-12-02] MEDS ORDERED: methylPREDNISolone Sodium Succinate 40 MG/1 ML SDV IVPUSH SCH (09:00)
[2022-12-02] MEDS: methylPREDNISolone Sodium Succinate 40 MG/1 ML SDV IVPUSH SCH ×2 (13:38→20:47)
[2022-12-02] MEDS: LORazepam 0.5 MG Tab PO PRN ×2 (17:22→21:46)
[2022-12-02] MEDS: Gabapentin 100 MG Cap PO SCH (20:45)
[2022-12-02] MEDS: Simvastatin 10 MG Tab PO SCH (20:46)
[2022-12-02] MEDS: Remove Patch LIDOCAINE PATCHES TRDERM SCH (21:14)
[2022-12-03] MEDS: methylPREDNISolone Sodium Succinate 40 MG/1 ML SDV IVPUSH SCH ×3 (06:35→21:44)
[2022-12-03] MEDS: Budesonide 0.5 MG/2 ML Neb Susp NEB SCH ×2 (07:13→20:00)
[2022-12-03 08:18] LABS: BASE EXCESS ARTERIAL 10 mmol/L ((-2)-(+3)); BICARBONATE,ARTERIAL 34 mmol/L (21-28); PCO2 ARTERIAL 49 mmHG (35-48); PH,ARTERIAL 7.45 pH (7.35-7.45); PO2 ARTERIAL 88 mmHG (83-108)
[2022-12-03 08:19] LABS: HEMATOCRIT 42.2 % (33.0-47.0); HEMOGLOBIN 13.9 g/dL (12.0-16.0); IMMATURE GRAN ABSOLUTE AUTO 0.05 x10^3/uL (0.00-0.07); LYMPHOCYTES ABSOLUTE AUTO 0.7 x10^3/uL (1.0-4.8); LYMPHOCYTES PERCENT AUTO 3.5 % (25.0-50.0); MEAN CORPUSCULAR HEMOGLOBIN 27.9 pg (26.0-32.0); MEAN CORPUSCULAR HGB CONC 32.9 g/dL (32.0-36.0); MEAN CORPUSCULAR VOLUME 84.7 fL (78.0-93.0); MONOCYTES ABSOLUTE AUTO 0.6 x10^3/uL (0.0-0.8); MONOCYTES PERCENT AUTO 3.1 % (2.0-11.0); NEUTROPHILS ABSOLUTE AUTO 19.2 x10^3/uL (1.8-7.7); NEUTROPHILS PERCENT AUTO 93.2 % (50.0-80.0); PLATELET COUNT,PLT 469 x10^3/uL (130-400); RED BLOOD CELL COUNT 4.98 x10^6/uL (4.00-5.50)
[2022-12-03] MEDS: Levothyroxine 50 MCG Tab PO SCH (08:27)
[2022-12-03] MEDS: Metoprolol Tartrate 25 MG Tab PO SCH ×2 (08:27→20:00)
[2022-12-03] MEDS: Apixaban 2.5 MG Tab PO SCH ×2 (08:27→20:01)
[2022-12-03] MEDS: Sertraline 25 MG Tab PO SCH (08:28)
[2022-12-03] MEDS: Azithromycin 250 MG Tab PO SCH (08:29)
[2022-12-03] MEDS: Digoxin 125 MCG Tab PO SCH (08:29)
[2022-12-03] MEDS: Furosemide 20 MG Tab PO SCH (08:29)
[2022-12-03] MEDS: Diltiazem 120 MG Cap.CD PO SCH (08:30)
[2022-12-03] MEDS: Cholecalciferol (Vitamin D3) 25 MCG Tab PO SCH (08:30)
[2022-12-03] MEDS: Lidocaine 4% 1 each Patch TOP SCH (08:31)
[2022-12-03] MEDS: Ipratropium 0.06% Nasal Spray 15 ML Bottle NASBOTH SCH ×2 (08:31→21:35)
[2022-12-03] MEDS: Potassium Chloride 10 MEQ Tab.ER PO SCH ×2 (08:31→18:15)
[2022-12-03] MEDS: LORazepam 0.5 MG Tab PO PRN ×2 (08:46→16:13)
[2022-12-03 09:03] LABS: WHITE BLOOD CELL COUNT,WBC 20.7 x10^3/uL (4.0-10.0)
[2022-12-03] MEDS: Ipratropium 0.02% 0.5 MG/2.5 ML Neb Soln INH SCH ×2 (09:17→20:00)
[2022-12-03] MEDS: Arformoterol 15 MCG/2 ML Neb Soln INH SCH ×2 (09:17→20:00)
[2022-12-03 09:36] LABS: ALBUMIN 3.3 g/dL (3.4-5.0); BILIRUBIN TOTAL 0.2 mg/dL (0.2-1.0); CALCIUM 9.4 mg/dL (8.5-10.1); CREATININE 0.6 mg/dL (0.55-1.02); EST CRCL DRUG DOSING (CG) 54.54 mL/min; MAGNESIUM 2.1 mg/dL (1.8-2.4); PROTEIN TOTAL,TP 6.6 g/dL (6.4-8.2)
[2022-12-03] MEDS: Simvastatin 10 MG Tab PO SCH (20:01)
[2022-12-03] MEDS: Gabapentin 100 MG Cap PO SCH (20:01)
[2022-12-03] MEDS: Remove Patch LIDOCAINE PATCHES TRDERM SCH (20:12)
[2022-12-03] MEDS ORDERED: Sodium Chloride 0.9% 10 ML Syringe FLUSH PRN (21:47)
[2022-12-04] MEDS: methylPREDNISolone Sodium Succinate 40 MG/1 ML SDV IVPUSH SCH (05:52)
[2022-12-04] MEDS: Budesonide 0.5 MG/2 ML Neb Susp NEB SCH (06:00)
[2022-12-04 07:18] LABS: HEMATOCRIT 40.9 % (33.0-47.0); HEMOGLOBIN 13.2 g/dL (12.0-16.0); MEAN CORPUSCULAR HEMOGLOBIN 27.4 pg (26.0-32.0); MEAN CORPUSCULAR HGB CONC 32.3 g/dL (32.0-36.0); PLATELET COUNT,PLT 491 x10^3/uL (130-400); RED BLOOD CELL COUNT 4.81 x10^6/uL (4.00-5.50)
[2022-12-04 07:20] LABS: WHITE BLOOD CELL COUNT,WBC 22.4 x10^3/uL (4.0-10.0)
[2022-12-04 07:29] LABS: ANISOCYTOSIS 1+ SLIGHT; BAND PERCENT MAN 2 % (0-6); LYMPHOCYTES ABSOLUTE MAN 0.4 x10^3/uL (1.0-4.8); LYMPHOCYTES PERCENT MAN 2 % (25-50); MONOCYTES ABSOLUTE MAN 0.7 x10^3/uL (0.0-0.8); MONOCYTES PERCENT MAN 3 % (2-11); NEUTROPHILS ABSOLUTE MAN 21.3 x10^3/uL (1.8-7.7); PLATELET COUNT ESTIMATE INCREASED; SEG NEUTROPHILS PERCENT MAN 93 % (50-80)
[2022-12-04 07:43] LABS: ANION GAP 8.6 mmol/L (5-15); BILIRUBIN TOTAL 0.2 mg/dL (0.2-1.0); CALCIUM 9.1 mg/dL (8.5-10.1); CREATININE 0.6 mg/dL (0.55-1.02); EST CRCL DRUG DOSING (CG) 54.54 mL/min; POTASSIUM,K 4.6 mmol/L (3.5-5.1)
[2022-12-04] MEDS: Potassium Chloride 10 MEQ Tab.ER PO SCH (07:51)
[2022-12-04] MEDS: Apixaban 2.5 MG Tab PO SCH (09:03)
[2022-12-04] MEDS: Levothyroxine 50 MCG Tab PO SCH (09:04)
[2022-12-04] MEDS: Digoxin 125 MCG Tab PO SCH (09:05)
[2022-12-04] MEDS: Furosemide 20 MG Tab PO SCH (09:08)
[2022-12-04] MEDS: Sertraline 25 MG Tab PO SCH (09:08)
[2022-12-04] MEDS: Diltiazem 120 MG Cap.CD PO SCH (09:11)
[2022-12-04] MEDS: Ipratropium 0.02% 0.5 MG/2.5 ML Neb Soln INH SCH (09:12)
[2022-12-04 09:14] LABS: HCO3 VENOUS,POC 33 mmol/L (22-29); O2 SATURATION VENOUS,POC 78 %; PCO2 VENOUS,POC 50 mmHg (41-51); PH VENOUS,POC 7.42 pH (7.32-7.43); PO2 VENOUS,POC 43 mmHg
[2022-12-04] MEDS: Metoprolol Tartrate 25 MG Tab PO SCH (09:14)
[2022-12-04] MEDS: Azithromycin 250 MG Tab PO SCH (09:15)
[2022-12-04] MEDS: Ipratropium 0.06% Nasal Spray 15 ML Bottle NASBOTH SCH (09:16)
[2022-12-04] MEDS: Cholecalciferol (Vitamin D3) 25 MCG Tab PO SCH (09:16)
[2022-12-04] MEDS: Arformoterol 15 MCG/2 ML Neb Soln INH SCH (09:20)
[2022-12-04] MEDS: Lidocaine 4% 1 each Patch TOP SCH (09:21)
[2022-12-04] MEDS: predniSONE 20 MG Tab PO ONE (13:53)
[2022-12-04 14:42] VITALS: BP 143/79; PULSE 87
[2022-12-05] MEDS ORDERED: Ferrous Sulfate 325 MG Tab PO SCH (09:00)
== END 2022-12-04 14:35 | disposition home health service (06) | DRG 189 ==
LOC: VM.ED 22:18 → VM.MS 23:38 → OBSVTOIN 12-02 16:00
PROVIDERS: ADMIT Nurse Practitioner Family; ATTEND Internal Medicine
PROC: 4A033R1 Measurement of Arterial Saturation, Peripheral, Percutaneous Approach (ICD-10-PCS; principal; 2022-12-03)
DX: J96.21 Acute and chronic respiratory failure with hypoxia (principal); J44.1 Chronic obstructive pulmonary disease with (acute) exacerbation; E87.6 Hypokalemia; I48.91 Unspecified atrial fibrillation; I47.1 Supraventricular tachycardia; M81.0 Age-related osteoporosis without current pathological fracture; I27.20 Pulmonary hypertension, unspecified; F41.9 Anxiety disorder, unspecified; I10 Essential (primary) hypertension; E78.2 Mixed hyperlipidemia; E03.9 Hypothyroidism, unspecified; R91.8 Other nonspecific abnormal finding of lung field; F03.90 Unspecified dementia, unspecified severity, without behavioral disturbance, psychotic disturbance, mood disturbance, and anxiety; R63.4 Abnormal weight loss; Z96.649 Presence of unspecified artificial hip joint; Z86.16 Personal history of COVID-19; Z98.49 Cataract extraction status, unspecified eye; Z90.49 Acquired absence of other specified parts of digestive tract; Z90.710 Acquired absence of both cervix and uterus; E78.00 Pure hypercholesterolemia, unspecified; K21.9 Gastro-esophageal reflux disease without esophagitis; Z79.01 Long term (current) use of anticoagulants; Z87.81 Personal history of (healed) traumatic fracture; Z98.890 Other specified postprocedural states; Z99.81 Dependence on supplemental oxygen; Z79.899 Other long term (current) drug therapy; Z87.891 Personal history of nicotine dependence
CPT/HCPCS: 36415; 36600; 71046; 80048; 80053; 82140; 82803; 83735; 83880; 85025; 86140; 94640; 94760; 96365; 96374; 96375; 96376; 97162-GP; 99223; 99233; 99285-25; A9270-GY; G0378; J0696; J2920; J2930; J3480; J3490; J7050; J7512

== ENCOUNTER 2022-12-15 22:22 | Emergency (ER) | payer MEDICARE, OTHER ==
[2022-12-15 22:41] VITALS: PULSE 63
[2022-12-15] MEDS ORDERED: Take Home: Acetaminophen/HYDROcodone 325-5 MG, 5 Tab Pack PO ONE (23:57)
[2022-12-16 01:35] VITALS: BP 138/88
== END 2022-12-16 00:05 | disposition home or self-care (01) ==
LOC: VM.ED 22:22
DX: S42.034A Nondisplaced fracture of lateral end of right clavicle, initial encounter for closed fracture (principal); I48.91 Unspecified atrial fibrillation; E78.00 Pure hypercholesterolemia, unspecified; I10 Essential (primary) hypertension; J44.9 Chronic obstructive pulmonary disease, unspecified; E03.9 Hypothyroidism, unspecified; Z79.899 Other long term (current) drug therapy; Z79.01 Long term (current) use of anticoagulants; Z86.16 Personal history of COVID-19; Z87.891 Personal history of nicotine dependence; W19.XXXA Unspecified fall, initial encounter; Y93.01 Activity, walking, marching and hiking
CPT/HCPCS: 73030; 73060; 99284; A9270

== ENCOUNTER 2023-01-24 10:54 | Inpatient (IN) | payer MEDICARE, OTHER ==
[2023-01-24] MEDS ORDERED: Albuterol/Ipratropium 3.0-0.5 MG/3 ML Neb Soln NEB ONE (10:59)
[2023-01-24] MEDS ORDERED: Sodium Chloride 0.9% 1,000 ML IV ONE (11:10)
[2023-01-24] MEDS ORDERED: methylPREDNISolone Sodium Succinate 125 MG/2 ML SDV IVPUSH ONE (11:14)
[2023-01-24 11:18] LABS: BASOPHILS PERCENT AUTO 0.3 % (0.2-1.2); EOSINOPHILS ABSOLUTE AUTO 0.3 x10^3/uL (0.0-0.5); EOSINOPHILS PERCENT AUTO 2.6 % (0.0-4.0); HEMOGLOBIN 14.1 g/dL (12.0-16.0); IMMATURE GRAN ABSOLUTE AUTO 0.01 x10^3/uL (0.00-0.07); LYMPHOCYTES ABSOLUTE AUTO 1.2 x10^3/uL (1.0-4.8); MEAN CORPUSCULAR HEMOGLOBIN 27.9 pg (26.0-32.0); MEAN CORPUSCULAR HGB CONC 32.8 g/dL (32.0-36.0); MEAN CORPUSCULAR VOLUME 85.1 fL (78.0-93.0); MONOCYTES ABSOLUTE AUTO 1.3 x10^3/uL (0.0-0.8); MONOCYTES PERCENT AUTO 11.7 % (2.0-11.0); NEUTROPHILS ABSOLUTE AUTO 8.2 x10^3/uL (1.8-7.7); NEUTROPHILS PERCENT AUTO 74.3 % (50.0-80.0); PLATELET COUNT,PLT 524 x10^3/uL (130-400); RED BLOOD CELL COUNT 5.05 x10^6/uL (4.00-5.50)
[2023-01-24 11:46] LABS: A/G RATIO 0.89; ALANINE AMINOTRANSFERASE,ALT 17 U/L (14-59); ALBUMIN 3.1 g/dL (3.4-5.0); ALKALINE PHOSPHATASE 81 U/L (46-116); ASPARTATE AMNIOTRANSFERASE,AST 18 U/L (15-37); BILIRUBIN TOTAL 0.6 mg/dL (0.2-1.0); BLOOD UREA NITROGEN,BUN 7 mg/dL (7-18); CARBON DIOXIDE,CO2 38 mmol/L (21-32); CHLORIDE,CL 95 mmol/L (98-107); CREATININE 0.5 mg/dL (0.55-1.02); GLUCOSE RANDOM 93 mg/dL (70-99); PRO B-TYPE NATRIUR PEPT,BNPPRO 517 pg/mL (<=450); PROTEIN TOTAL,TP 6.6 g/dL (6.4-8.2); SODIUM,NA 142 mmol/L (136-145)
[2023-01-24 11:47] LABS: ANION GAP 11.7 mmol/L (5-15); ESTIMATED GFR 92 mL/min (>=60); POTASSIUM,K 2.7 mmol/L (3.5-5.1)
[2023-01-24] MEDS ORDERED: NS + KCl 20mEq/L 1,000 ML IV SCH (12:00)
[2023-01-24] MEDS ORDERED: Acetaminophen 325 MG Tab PO PRN (13:45)
[2023-01-24] MEDS ORDERED: Ondansetron 4 MG Tab.DIS PO PRN (13:45)
[2023-01-24] MEDS ORDERED: Polyethylene Glycol 3350 Powder 17 GM Packet PO PRN (13:45)
[2023-01-24] MEDS ORDERED: Loratadine 10 MG Tab PO PRN (13:49)
[2023-01-24] MEDS ORDERED: Hypromellose 0.3% Ophth Soln 15 ML Bottle EYEBOTH PRN (13:49)
[2023-01-24] MEDS ORDERED: Menthol Lozenge PO PRN (13:49)
[2023-01-24] MEDS ORDERED: D5 1/2 NS w/ 40 mEq/L KCl 1,000 ML IV STA (14:01)
[2023-01-24] MEDS ORDERED: Albuterol/Ipratropium 3.0-0.5 MG/3 ML Neb Soln NEB SCH (15:00)
[2023-01-24] MEDS ORDERED: Albuterol/Ipratropium 3.0-0.5 MG/3 ML Neb Soln NEB PRN (18:23)
[2023-01-24] MEDS ORDERED: Levofloxacin 500 MG Tab PO ONE (18:45)
[2023-01-24] MEDS: Apixaban 2.5 MG Tab PO SCH (20:16)
[2023-01-24] MEDS: Metoprolol Tartrate 25 MG Tab PO SCH (20:17)
[2023-01-24] MEDS: Gabapentin 100 MG Cap PO SCH (20:17)
[2023-01-24] MEDS: Arformoterol 15 MCG/2 ML Neb Soln INH SCH (20:22)
[2023-01-24] MEDS: Budesonide 0.5 MG/2 ML Neb Susp NEB SCH (20:33)
[2023-01-24] MEDS ORDERED: Simvastatin 10 MG Tab PO SCH (21:00)
[2023-01-24] MEDS ORDERED: Ipratropium 0.02% 0.5 MG/2.5 ML Neb Soln INH PRN (21:00)
[2023-01-24] MEDS: Ipratropium 0.06% Nasal Spray 15 ML Bottle NASBOTH SCH (22:16)
[2023-01-25] MEDS: Levothyroxine 50 MCG Tab PO SCH (06:16)
[2023-01-25] MEDS: Arformoterol 15 MCG/2 ML Neb Soln INH SCH ×2 (06:17→20:25)
[2023-01-25 06:39] LABS: BASOPHILS PERCENT AUTO 0.1 % (0.2-1.2); HEMATOCRIT 40.9 % (33.0-47.0); HEMOGLOBIN 13.4 g/dL (12.0-16.0); IMMATURE GRAN ABSOLUTE AUTO 0.03 x10^3/uL (0.00-0.07); LYMPHOCYTES ABSOLUTE AUTO 0.5 x10^3/uL (1.0-4.8); LYMPHOCYTES PERCENT AUTO 4.6 % (25.0-50.0); MEAN CORPUSCULAR HEMOGLOBIN 28.2 pg (26.0-32.0); MEAN CORPUSCULAR HGB CONC 32.8 g/dL (32.0-36.0); MEAN CORPUSCULAR VOLUME 86.1 fL (78.0-93.0); MONOCYTES ABSOLUTE AUTO 0.5 x10^3/uL (0.0-0.8); NEUTROPHILS ABSOLUTE AUTO 9.6 x10^3/uL (1.8-7.7); PLATELET COUNT,PLT 548 x10^3/uL (130-400); RED BLOOD CELL COUNT 4.75 x10^6/uL (4.00-5.50); WHITE BLOOD CELL COUNT,WBC 10.7 x10^3/uL (4.0-10.0)
[2023-01-25] MEDS: Budesonide 0.5 MG/2 ML Neb Susp NEB SCH ×2 (06:40→20:49)
[2023-01-25 06:50] LABS: ANION GAP 8.3 mmol/L (5-15); CALCIUM 9.1 mg/dL (8.5-10.1); CREATININE 0.5 mg/dL (0.55-1.02); EST CRCL DRUG DOSING (CG) 59.1 mL/min; MAGNESIUM 1.8 mg/dL (1.8-2.4); POTASSIUM,K 3.3 mmol/L (3.5-5.1)
[2023-01-25 06:58] LABS: LACTIC ACID 1.2 mmol/L (0.4-2.0)
[2023-01-25] MEDS: Apixaban 2.5 MG Tab PO SCH ×2 (08:11→20:20)
[2023-01-25] MEDS: Ferrous Sulfate 325 MG Tab PO SCH (08:11)
[2023-01-25] MEDS: Cholecalciferol (Vitamin D3) 25 MCG Tab PO SCH (08:12)
[2023-01-25] MEDS: Sertraline 25 MG Tab PO SCH (08:12)
[2023-01-25] MEDS: Metoprolol Tartrate 25 MG Tab PO SCH ×2 (08:12→20:20)
[2023-01-25] MEDS: Diltiazem 120 MG Cap.CD PO SCH (08:13)
[2023-01-25] MEDS: Digoxin 125 MCG Tab PO SCH (08:15)
[2023-01-25] MEDS: Lidocaine 4% 1 each Patch TOP SCH (08:21)
[2023-01-25] MEDS: methylPREDNISolone Sodium Succinate 40 MG/1 ML SDV IVPUSH SCH (08:22)
[2023-01-25] MEDS: Potassium Chloride 10 MEQ Tab.ER PO SCH (08:28)
[2023-01-25] MEDS: Ipratropium 0.06% Nasal Spray 15 ML Bottle NASBOTH SCH ×2 (09:08→20:24)
[2023-01-25] MEDS ORDERED: ALPRAZolam 0.25 MG Tab PO PRN (15:33)
[2023-01-25] MEDS ORDERED: Levofloxacin 250 MG Tab PO SCH (20:00)
[2023-01-25] MEDS: Gabapentin 100 MG Cap PO SCH (20:21)
[2023-01-26] MEDS: Levothyroxine 50 MCG Tab PO SCH (06:12)
[2023-01-26] MEDS: Arformoterol 15 MCG/2 ML Neb Soln INH SCH (06:13)
[2023-01-26] MEDS: Budesonide 0.5 MG/2 ML Neb Susp NEB SCH (06:35)
[2023-01-26 06:40] LABS: HEMATOCRIT 41.7 % (33.0-47.0); HEMOGLOBIN 13.5 g/dL (12.0-16.0); MEAN CORPUSCULAR HGB CONC 32.4 g/dL (32.0-36.0); MEAN CORPUSCULAR VOLUME 86.3 fL (78.0-93.0); PLATELET COUNT,PLT 621 x10^3/uL (130-400); RED BLOOD CELL COUNT 4.83 x10^6/uL (4.00-5.50)
[2023-01-26 06:42] LABS: WHITE BLOOD CELL COUNT,WBC 20.6 x10^3/uL (4.0-10.0)
[2023-01-26 06:50] LABS: BAND PERCENT MAN 2 % (0-6); LYMPHOCYTES ABSOLUTE MAN 1.2 x10^3/uL (1.0-4.8); LYMPHOCYTES PERCENT MAN 6 % (25-50); MONOCYTES ABSOLUTE MAN 2.1 x10^3/uL (0.0-0.8); MONOCYTES PERCENT MAN 10 % (2-11); NEUTROPHILS ABSOLUTE MAN 17.3 x10^3/uL (1.8-7.7); PLATELET COUNT ESTIMATE INCREASED; SEG NEUTROPHILS PERCENT MAN 82 % (50-80)
[2023-01-26 06:54] LABS: CALCIUM 9.1 mg/dL (8.5-10.1); CREATININE 0.5 mg/dL (0.55-1.02); EST CRCL DRUG DOSING (CG) 62.01 mL/min; POTASSIUM,K 3.2 mmol/L (3.5-5.1)
[2023-01-26 06:59] LABS: ANION GAP 8.2 mmol/L (5-15)
[2023-01-26] MEDS ORDERED: Potassium Chloride 10 MEQ Tab.ER PO ONE (08:08)
[2023-01-26] MEDS: Ferrous Sulfate 325 MG Tab PO SCH (08:27)
[2023-01-26] MEDS: Cholecalciferol (Vitamin D3) 25 MCG Tab PO SCH (08:27)
[2023-01-26] MEDS: Sertraline 25 MG Tab PO SCH (08:27)
[2023-01-26] MEDS: Diltiazem 120 MG Cap.CD PO SCH (08:28)
[2023-01-26] MEDS: Digoxin 125 MCG Tab PO SCH (08:29)
[2023-01-26] MEDS: Potassium Chloride 10 MEQ Tab.ER PO SCH (08:29)
[2023-01-26] MEDS: Metoprolol Tartrate 25 MG Tab PO SCH (08:29)
[2023-01-26] MEDS: Apixaban 2.5 MG Tab PO SCH (08:29)
[2023-01-26] MEDS: methylPREDNISolone Sodium Succinate 40 MG/1 ML SDV IVPUSH SCH (08:30)
[2023-01-26] MEDS: Lidocaine 4% 1 each Patch TOP SCH (08:37)
[2023-01-26] MEDS: Ipratropium 0.06% Nasal Spray 15 ML Bottle NASBOTH SCH (08:39)
[2023-01-26 11:11] VITALS: BP 126/64; PULSE 66
== END 2023-01-26 10:10 | disposition home health service (06) | DRG 640 ==
LOC: VM.ED 10:54 → VM.MS 12:02
PROVIDERS: ADMIT Physician Assistant; ATTEND Internal Medicine
DX: E87.6 Hypokalemia (principal); J96.21 Acute and chronic respiratory failure with hypoxia; J44.1 Chronic obstructive pulmonary disease with (acute) exacerbation; I48.0 Paroxysmal atrial fibrillation; F03.90 Unspecified dementia, unspecified severity, without behavioral disturbance, psychotic disturbance, mood disturbance, and anxiety; R91.8 Other nonspecific abnormal finding of lung field; K21.9 Gastro-esophageal reflux disease without esophagitis; F41.1 Generalized anxiety disorder; D50.9 Iron deficiency anemia, unspecified; E78.00 Pure hypercholesterolemia, unspecified; R62.7 Adult failure to thrive; E03.9 Hypothyroidism, unspecified; I10 Essential (primary) hypertension; Z79.01 Long term (current) use of anticoagulants; Z86.16 Personal history of COVID-19; Z90.49 Acquired absence of other specified parts of digestive tract; Z68.22 Body mass index [BMI] 22.0-22.9, adult; Z90.710 Acquired absence of both cervix and uterus; Z98.42 Cataract extraction status, left eye; Z98.41 Cataract extraction status, right eye
CPT/HCPCS: 36415; 71045; 80048; 80053; 80162; 83605; 83735; 83880; 84484; 85025; 94640; 94760; 96361; 96374; 97161-GP; 97165-GO; 99285-25; A9270-GY; J2920; J2930; J3480; J3490; J7030; J7620-GY; U0002

== ENCOUNTER 2023-02-23 18:47 | Emergency (ER) | payer MEDICARE, OTHER ==
[2023-02-23 19:21] LABS: BASOPHILS ABSOLUTE AUTO 0.1 x10^3/uL (0.0-0.2); BASOPHILS PERCENT AUTO 0.6 % (0.2-1.2); EOSINOPHILS ABSOLUTE AUTO 0.6 x10^3/uL (0.0-0.5); EOSINOPHILS PERCENT AUTO 5.2 % (0.0-4.0); HEMATOCRIT 40.5 % (33.0-47.0); HEMOGLOBIN 12.9 g/dL (12.0-16.0); IMMATURE GRAN ABSOLUTE AUTO 0.01 x10^3/uL (0.00-0.07); LYMPHOCYTES ABSOLUTE AUTO 1.5 x10^3/uL (1.0-4.8); LYMPHOCYTES PERCENT AUTO 13.2 % (25.0-50.0); MEAN CORPUSCULAR HEMOGLOBIN 28.1 pg (26.0-32.0); MEAN CORPUSCULAR HGB CONC 31.9 g/dL (32.0-36.0); MEAN CORPUSCULAR VOLUME 88.2 fL (78.0-93.0); MONOCYTES ABSOLUTE AUTO 1.8 x10^3/uL (0.0-0.8); NEUTROPHILS ABSOLUTE AUTO 7.5 x10^3/uL (1.8-7.7); NEUTROPHILS PERCENT AUTO 65.1 % (50.0-80.0); PLATELET COUNT,PLT 417 x10^3/uL (130-400); RED BLOOD CELL COUNT 4.59 x10^6/uL (4.00-5.50); WHITE BLOOD CELL COUNT,WBC 11.4 x10^3/uL (4.0-10.0)
[2023-02-23 19:27] LABS: MONOCYTES PERCENT AUTO 15.8 % (2.0-11.0)
[2023-02-23 19:29] VITALS: PULSE 82
[2023-02-23 19:36] LABS: A/G RATIO 1.13; ALANINE AMINOTRANSFERASE,ALT 18 U/L (14-59); ALBUMIN 3.4 g/dL (3.4-5.0); ALKALINE PHOSPHATASE 80 U/L (46-116); ASPARTATE AMNIOTRANSFERASE,AST 15 U/L (15-37); BILIRUBIN TOTAL 0.4 mg/dL (0.2-1.0); BLOOD UREA NITROGEN,BUN 6 mg/dL (7-18); CALCIUM 9.2 mg/dL (8.5-10.1); CARBON DIOXIDE,CO2 32 mmol/L (21-32); CHLORIDE,CL 96 mmol/L (98-107); CREATININE 0.5 mg/dL (0.55-1.02); GLUCOSE RANDOM 106 mg/dL (70-99); POTASSIUM,K 3.9 mmol/L (3.5-5.1); PROTEIN TOTAL,TP 6.4 g/dL (6.4-8.2); SODIUM,NA 135 mmol/L (136-145)
[2023-02-23 19:37] LABS: ANION GAP 10.9 mmol/L (5-15); C-REACTIVE PROTEIN < 0.50 mg/dL (<=0.50); ESTIMATED GFR 92 mL/min (>=60)
[2023-02-23 21:18] VITALS: BP 129/80
== END 2023-02-23 20:49 | disposition home or self-care (01) ==
LOC: VM.ED 18:47
DX: J44.9 Chronic obstructive pulmonary disease, unspecified (principal); I10 Essential (primary) hypertension; E78.00 Pure hypercholesterolemia, unspecified; I48.91 Unspecified atrial fibrillation; E03.9 Hypothyroidism, unspecified; Z86.16 Personal history of COVID-19; Z79.01 Long term (current) use of anticoagulants; Z79.899 Other long term (current) drug therapy
CPT/HCPCS: 36415; 71046; 80053; 85025; 86140; 99284; 99285

== ENCOUNTER 2023-07-26 14:54 | Inpatient (IN) | payer MEDICARE, OTHER ==
[2023-07-26] MEDS ORDERED: Sodium Chloride 0.9% 10 ML Syringe FLUSH PRN (15:17)
[2023-07-26 15:27] LABS: BASOPHILS PERCENT AUTO 0.1 % (0.2-1.2); EOSINOPHILS PERCENT AUTO 0.1 % (0.0-4.0); HEMATOCRIT 43.2 % (33.0-47.0); HEMOGLOBIN 14.5 g/dL (12.0-16.0); IMMATURE GRAN ABSOLUTE AUTO 0.06 x10^3/uL (0.00-0.07); LYMPHOCYTES ABSOLUTE AUTO 0.8 x10^3/uL (1.0-4.8); LYMPHOCYTES PERCENT AUTO 4.9 % (25.0-50.0); MEAN CORPUSCULAR HEMOGLOBIN 30.3 pg (26.0-32.0); MEAN CORPUSCULAR HGB CONC 33.6 g/dL (32.0-36.0); MEAN CORPUSCULAR VOLUME 90.2 fL (78.0-93.0); MONOCYTES ABSOLUTE AUTO 2.5 x10^3/uL (0.0-0.8); MONOCYTES PERCENT AUTO 14.7 % (2.0-11.0); NEUTROPHILS ABSOLUTE AUTO 13.5 x10^3/uL (1.8-7.7); NEUTROPHILS PERCENT AUTO 79.8 % (50.0-80.0); RED BLOOD CELL COUNT 4.79 x10^6/uL (4.00-5.50); WHITE BLOOD CELL COUNT,WBC 16.9 x10^3/uL (4.0-10.0)
[2023-07-26] MEDS: methylPREDNISolone Sodium Succinate 125 MG/2 ML SDV IV ONE (15:34)
[2023-07-26] MEDS: Albuterol/Ipratropium 3.0-0.5 MG/3 ML Neb Soln NEB ONE (15:36)
[2023-07-26] MEDS: Diltiazem 50 MG/10 ML SDV IVPUSH ONE (15:36)
[2023-07-26] MEDS: cefTRIAXone 1 GM Vial IVPUSH ONE (15:43)
[2023-07-26 15:45] LABS: PLATELET COUNT,PLT 473 x10^3/uL (130-400)
[2023-07-26 15:52] LABS: INR 1.1 (0.9-1.1); PROTHROMBIN TIME 11.2 SEC (8.9-11.5)
[2023-07-26 16:05] LABS: A/G RATIO 0.97; ALANINE AMINOTRANSFERASE,ALT 10 U/L (14-59); ALBUMIN 3.1 g/dL (3.4-5.0); ALKALINE PHOSPHATASE 73 U/L (46-116); ASPARTATE AMNIOTRANSFERASE,AST 13 U/L (15-37); BILIRUBIN TOTAL 1.1 mg/dL (0.2-1.0); BLOOD UREA NITROGEN,BUN 11 mg/dL (7-18); C-REACTIVE PROTEIN 13.07 mg/dL (<=0.50); CALCIUM 8.7 mg/dL (8.5-10.1); CARBON DIOXIDE,CO2 31 mmol/L (21-32); CHLORIDE,CL 96 mmol/L (98-107); CREATININE 0.6 mg/dL (0.55-1.02); GLUCOSE RANDOM 130 mg/dL (70-99); POTASSIUM,K 3.6 mmol/L (3.5-5.1); PRO B-TYPE NATRIUR PEPT,BNPPRO 193 pg/mL (<=450); PROTEIN TOTAL,TP 6.3 g/dL (6.4-8.2); SODIUM,NA 134 mmol/L (136-145); TSH ULTRASENSITIVE 1.816 uIU/mL (0.358-3.74)
[2023-07-26 16:06] LABS: ANION GAP 10.6 mmol/L (5-15); ESTIMATED GFR 88 mL/min (>=60)
[2023-07-26] MEDS: Diltiazem 125 MG in Sodium Chloride 0.9% 100 ML IV SCH (16:17)
[2023-07-26 16:19] LABS: CORONAVIRUS COVID-19 NAA NEGATIVE (NEGATIVE); INFLUENZA A NAA NEGATIVE (NEGATIVE); INFLUENZA B NAA NEGATIVE (NEGATIVE); RESPIRATORY SYNCYTIAL VIR NAA NEGATIVE (NEGATIVE)
[2023-07-26 16:25] LABS: LACTIC ACID 1.3 mmol/L (0.4-2.0)
[2023-07-26 16:26] LABS: BASE EXCESS ARTERIAL,POC 5 mmol/L ((-2)-3); HCO3 ARTERIAL,POC 27.8 mmol/L (21-28); O2 SATURATION ARTERIAL,POC 92.6 % (94-98); PCO2 ARTERIAL,POC 36 mmHg (35-48); PH ARTERIAL,POC 7.49 pH (7.35-7.45); PO2 ARTERIAL,POC 60 mmHg (83-108); TCO2 ARTERIAL,POC 26.8 mmol/L (22-29)
[2023-07-26] MEDS ORDERED: Acetaminophen 325 MG Tab PO PRN (17:17)
[2023-07-26] MEDS ORDERED: Sennosides 8.6 MG Tab PO PRN (17:17)
[2023-07-26] MEDS ORDERED: Albuterol/Ipratropium 3.0-0.5 MG/3 ML Neb Soln NEB PRN (17:17)
[2023-07-26] MEDS ORDERED: Bisacodyl 10 MG Supp RECTAL PRN (17:17)
[2023-07-26] MEDS ORDERED: Albuterol HFA 18 Gm Inhaler INH PRN (17:17)
[2023-07-26] MEDS ORDERED: Loratadine 10 MG Tab PO PRN (18:13)
[2023-07-26] MEDS ORDERED: Hypromellose 0.3% Ophth Soln 15 ML Bottle EYEBOTH PRN (18:15)
[2023-07-26] MEDS ORDERED: Menthol Lozenge PO PRN (18:18)
[2023-07-26 19:22] LABS: LACTIC ACID 1.7 mmol/L (0.4-2.0)
[2023-07-26] MEDS ORDERED: methylPREDNISolone Sodium Succinate 40 MG/1 ML SDV IVPUSH SCH (21:00)
[2023-07-26] MEDS: Mirtazapine 15 MG Tab PO SCH (22:08)
[2023-07-26] MEDS: Apixaban 2.5 MG Tab PO SCH (22:08)
[2023-07-26] MEDS: Metoprolol Tartrate 25 MG Tab PO SCH (22:08)
[2023-07-26] MEDS: Gabapentin 100 MG Cap PO SCH (22:08)
[2023-07-26] MEDS: Ipratropium 0.06% Nasal Spray 15 ML Bottle NASBOTH SCH (22:09)
[2023-07-26] MEDS: Formoterol/Mometasone 200-5 MCG 13 GM Inhaler INH SCH (22:09)
[2023-07-27] MEDS: Levothyroxine 50 MCG Tab PO SCH (06:07)
[2023-07-27 06:33] LABS: APPEARANCE,URINE CLEAR (CLEAR); BILIRUBIN,URINE NEGATIVE (NEGATIVE); COLOR,URINE YELLOW (YELLOW); GLUCOSE,URINE 100 mg/dL (NEGATIVE); KETONES,URINE NEGATIVE (NEGATIVE); LEUKOCYTE ESTERASE,URINE NEGATIVE (NEGATIVE); NITRITE,URINE NEGATIVE (NEGATIVE); OCCULT BLOOD,URINE NEGATIVE (NEGATIVE); PH,URINE 6.5 (5.0-8.0); PROTEIN,URINE NEGATIVE (NEGATIVE); UROBILINOGEN,URINE 0.2 EU/dL (0.2)
[2023-07-27 07:18] LABS: BASOPHILS PERCENT AUTO 0.1 % (0.2-1.2); HEMATOCRIT 45.1 % (33.0-47.0); IMMATURE GRAN ABSOLUTE AUTO 0.05 x10^3/uL (0.00-0.07); LYMPHOCYTES ABSOLUTE AUTO 0.4 x10^3/uL (1.0-4.8); MEAN CORPUSCULAR HEMOGLOBIN 30.2 pg (26.0-32.0); MEAN CORPUSCULAR HGB CONC 33.3 g/dL (32.0-36.0); MEAN CORPUSCULAR VOLUME 90.7 fL (78.0-93.0); MONOCYTES ABSOLUTE AUTO 0.4 x10^3/uL (0.0-0.8); MONOCYTES PERCENT AUTO 4.4 % (2.0-11.0); NEUTROPHILS PERCENT AUTO 91.1 % (50.0-80.0); PLATELET COUNT,PLT 448 x10^3/uL (130-400); RED BLOOD CELL COUNT 4.97 x10^6/uL (4.00-5.50); WHITE BLOOD CELL COUNT,WBC 9.9 x10^3/uL (4.0-10.0)
[2023-07-27 07:27] LABS: LYMPHOCYTES PERCENT AUTO 3.9 % (25.0-50.0)
[2023-07-27 07:35] LABS: ANION GAP 9.4 mmol/L (5-15); CALCIUM 9.3 mg/dL (8.5-10.1); CREATININE 0.6 mg/dL (0.55-1.02); EST CRCL DRUG DOSING (CG) 54.18 mL/min; POTASSIUM,K 4.4 mmol/L (3.5-5.1)
[2023-07-27] MEDS: Cholecalciferol (Vitamin D3) 25 MCG Tab PO SCH (08:21)
[2023-07-27] MEDS: Potassium Chloride 10 MEQ Tab.ER PO SCH (08:21)
[2023-07-27] MEDS: methylPREDNISolone Sodium Succinate 40 MG/1 ML SDV IVPUSH SCH (08:21)
[2023-07-27] MEDS: Lidocaine 4% 1 each Patch TOP SCH (08:21)
[2023-07-27] MEDS: Digoxin 125 MCG Tab PO SCH (08:21)
[2023-07-27] MEDS: Polyethylene Glycol 3350 Powder 17 GM Packet PO SCH (08:22)
[2023-07-27] MEDS: LIDOCAINE PATCHES TRDERM SCH (20:53)
[2023-07-28 07:43] LABS: CALCIUM 9.2 mg/dL (8.5-10.1); CREATININE 0.6 mg/dL (0.55-1.02); EST CRCL DRUG DOSING (CG) 54.18 mL/min; POTASSIUM,K 4.5 mmol/L (3.5-5.1)
[2023-07-28 07:44] LABS: ANION GAP 9.5 mmol/L (5-15)
[2023-07-28 07:52] LABS: HEMATOCRIT 42.2 % (33.0-47.0); HEMOGLOBIN 14.1 g/dL (12.0-16.0); MEAN CORPUSCULAR HEMOGLOBIN 30.1 pg (26.0-32.0); MEAN CORPUSCULAR HGB CONC 33.4 g/dL (32.0-36.0); MEAN CORPUSCULAR VOLUME 90.2 fL (78.0-93.0); PLATELET COUNT,PLT 550 x10^3/uL (130-400); RED BLOOD CELL COUNT 4.68 x10^6/uL (4.00-5.50)
[2023-07-28 07:54] LABS: WHITE BLOOD CELL COUNT,WBC 26.2 x10^3/uL (4.0-10.0)
[2023-07-28 08:22] LABS: BAND PERCENT MAN 1 % (0-6); LYMPHOCYTES PERCENT MAN 4 % (25-50); MONOCYTES ABSOLUTE MAN 1.3 x10^3/uL (0.0-0.8); MONOCYTES PERCENT MAN 5 % (2-11); NEUTROPHILS ABSOLUTE MAN 23.8 x10^3/uL (1.8-7.7); SEG NEUTROPHILS PERCENT MAN 90 % (50-80)
[2023-07-28 08:24] LABS: PLATELET COUNT ESTIMATE INCREASED
[2023-07-28 08:29] LABS: ANISOCYTOSIS FEW; POIKILOCYTOSIS 2+ MODERATE
[2023-07-28] MEDS: methylPREDNISolone Sodium Succinate 40 MG/1 ML SDV IVPUSH SCH (08:53)
[2023-07-29 07:25] LABS: HEMATOCRIT 39.1 % (33.0-47.0); IMMATURE GRAN ABSOLUTE AUTO 0.05 x10^3/uL (0.00-0.07); LYMPHOCYTES ABSOLUTE AUTO 1.5 x10^3/uL (1.0-4.8); LYMPHOCYTES PERCENT AUTO 7.6 % (25.0-50.0); MEAN CORPUSCULAR HEMOGLOBIN 30.7 pg (26.0-32.0); MEAN CORPUSCULAR HGB CONC 33.2 g/dL (32.0-36.0); MEAN CORPUSCULAR VOLUME 92.2 fL (78.0-93.0); MONOCYTES ABSOLUTE AUTO 2.3 x10^3/uL (0.0-0.8); MONOCYTES PERCENT AUTO 11.4 % (2.0-11.0); NEUTROPHILS PERCENT AUTO 80.7 % (50.0-80.0); RED BLOOD CELL COUNT 4.24 x10^6/uL (4.00-5.50); WHITE BLOOD CELL COUNT,WBC 19.8 x10^3/uL (4.0-10.0)
[2023-07-29 07:41] LABS: A/G RATIO 0.74; ALBUMIN 2.5 g/dL (3.4-5.0); BILIRUBIN TOTAL 0.2 mg/dL (0.2-1.0); CALCIUM 8.9 mg/dL (8.5-10.1); CREATININE 0.6 mg/dL (0.55-1.02); EST CRCL DRUG DOSING (CG) 54.21 mL/min; POTASSIUM,K 4.6 mmol/L (3.5-5.1); PROTEIN TOTAL,TP 5.9 g/dL (6.4-8.2)
[2023-07-29 07:42] LABS: ANION GAP 8.6 mmol/L (5-15)
[2023-07-29 07:50] LABS: PLATELET COUNT,PLT 518 x10^3/uL (130-400)
[2023-07-30 07:01] LABS: EOSINOPHILS PERCENT AUTO 0.1 % (0.0-4.0); HEMATOCRIT 41.3 % (33.0-47.0); HEMOGLOBIN 13.7 g/dL (12.0-16.0); IMMATURE GRAN ABSOLUTE AUTO 0.05 x10^3/uL (0.00-0.07); LYMPHOCYTES ABSOLUTE AUTO 1.9 x10^3/uL (1.0-4.8); LYMPHOCYTES PERCENT AUTO 11.5 % (25.0-50.0); MEAN CORPUSCULAR HEMOGLOBIN 30.4 pg (26.0-32.0); MEAN CORPUSCULAR HGB CONC 33.2 g/dL (32.0-36.0); MEAN CORPUSCULAR VOLUME 91.6 fL (78.0-93.0); MONOCYTES ABSOLUTE AUTO 2.3 x10^3/uL (0.0-0.8); NEUTROPHILS ABSOLUTE AUTO 12.2 x10^3/uL (1.8-7.7); PLATELET COUNT,PLT 490 x10^3/uL (130-400); RED BLOOD CELL COUNT 4.51 x10^6/uL (4.00-5.50); WHITE BLOOD CELL COUNT,WBC 16.5 x10^3/uL (4.0-10.0)
[2023-07-30 07:18] LABS: MONOCYTES PERCENT AUTO 14.1 % (2.0-11.0)
[2023-07-30 07:21] LABS: A/G RATIO 1.07; ALBUMIN 2.9 g/dL (3.4-5.0); ANION GAP 10.4 mmol/L (5-15); BILIRUBIN TOTAL 0.3 mg/dL (0.2-1.0); CREATININE 0.5 mg/dL (0.55-1.02); EST CRCL DRUG DOSING (CG) 61.75 mL/min; POTASSIUM,K 4.4 mmol/L (3.5-5.1); PROTEIN TOTAL,TP 5.6 g/dL (6.4-8.2)
[2023-07-30] MEDS: Arformoterol 15 MCG/2 ML Neb Soln NEB SCH (11:39)
[2023-07-30] MEDS: Albuterol/Ipratropium 3.0-0.5 MG/3 ML Neb Soln NEB SCH (11:48)
[2023-07-30] MEDS: Metoprolol Succinate 50 MG Tab.ER PO SCH ×2 (13:41→14:51)
[2023-07-30 13:50] VITALS: BP 123/69; PULSE 85
== END 2023-07-30 14:05 | disposition home health service (06) | DRG 191 ==
LOC: VM.ED 14:54 → VM.MS 16:26
PROVIDERS: ADMIT Family Medicine; ATTEND Internal Medicine
PROC: 4A033R1 Measurement of Arterial Saturation, Peripheral, Percutaneous Approach (ICD-10-PCS; principal; 2023-07-26)
DX: J44.1 Chronic obstructive pulmonary disease with (acute) exacerbation (principal); E46 Unspecified protein-calorie malnutrition; F03.911 Unspecified dementia, unspecified severity, with agitation; F03.94 Unspecified dementia, unspecified severity, with anxiety; J96.11 Chronic respiratory failure with hypoxia; F05 Delirium due to known physiological condition; F03.93 Unspecified dementia, unspecified severity, with mood disturbance; R64 Cachexia; Z68.1 Body mass index [BMI] 19.9 or less, adult; Z66 Do not resuscitate; I48.0 Paroxysmal atrial fibrillation; F03.90 Unspecified dementia, unspecified severity, without behavioral disturbance, psychotic disturbance, mood disturbance, and anxiety; H91.90 Unspecified hearing loss, unspecified ear; H54.7 Unspecified visual loss; I48.91 Unspecified atrial fibrillation; E78.00 Pure hypercholesterolemia, unspecified; I10 Essential (primary) hypertension; K21.9 Gastro-esophageal reflux disease without esophagitis; M81.0 Age-related osteoporosis without current pathological fracture; E03.9 Hypothyroidism, unspecified; Z96.649 Presence of unspecified artificial hip joint; R91.8 Other nonspecific abnormal finding of lung field; Z90.89 Acquired absence of other organs; Z99.81 Dependence on supplemental oxygen; Z79.01 Long term (current) use of anticoagulants; Z79.899 Other long term (current) drug therapy; Z79.51 Long term (current) use of inhaled steroids; Z86.16 Personal history of COVID-19; Z98.49 Cataract extraction status, unspecified eye; Z90.49 Acquired absence of other specified parts of digestive tract; Z90.710 Acquired absence of both cervix and uterus; Z98.890 Other specified postprocedural states
CPT/HCPCS: 0241U; 36415; 36600; 71045; 80048; 80053; 80162; 81003; 82803; 83605; 83735; 83880; 84145; 84443; 84484; 85025; 85610; 85730; 86140; 87040; 93005; 93010; 94640; 94667; 96374; 96375; 96376; 97161; 97165; 99284; 99285; 99232; A9270-GY; J0696; J2920; J2930; J3490; J7620-GY

== ENCOUNTER 2023-10-21 05:35 | Inpatient (IN) | payer MEDICARE, OTHER ==
[2023-10-21] MEDS ORDERED: Sodium Chloride 0.9% 10 ML Syringe FLUSH PRN ×2 (05:45→05:49)
[2023-10-21 06:03] LABS: BASOPHILS ABSOLUTE AUTO 0.1 x10^3/uL (0.0-0.2); BASOPHILS PERCENT AUTO 0.4 % (0.2-1.2); EOSINOPHILS ABSOLUTE AUTO 0.5 x10^3/uL (0.0-0.5); EOSINOPHILS PERCENT AUTO 3.3 % (0.0-4.0); HEMOGLOBIN 14.5 g/dL (12.0-16.0); IMMATURE GRAN ABSOLUTE AUTO 0.01 x10^3/uL (0.00-0.07); LYMPHOCYTES ABSOLUTE AUTO 0.9 x10^3/uL (1.0-4.8); LYMPHOCYTES PERCENT AUTO 5.5 % (25.0-50.0); MEAN CORPUSCULAR HEMOGLOBIN 29.8 pg (26.0-32.0); MEAN CORPUSCULAR HGB CONC 32.2 g/dL (32.0-36.0); MEAN CORPUSCULAR VOLUME 92.6 fL (78.0-93.0); MONOCYTES PERCENT AUTO 9.5 % (2.0-11.0); NEUTROPHILS ABSOLUTE AUTO 13.4 x10^3/uL (1.8-7.7); NEUTROPHILS PERCENT AUTO 81.2 % (50.0-80.0); PLATELET COUNT,PLT 458 x10^3/uL (130-400); RED BLOOD CELL COUNT 4.86 x10^6/uL (4.00-5.50); WHITE BLOOD CELL COUNT,WBC 16.5 x10^3/uL (4.0-10.0)
[2023-10-21 06:11] LABS: HCO3 VENOUS,POC 40 mmol/L (22-29); O2 SATURATION VENOUS,POC 51 %; PCO2 VENOUS,POC 79 mmHg (41-51); PH VENOUS,POC 7.32 pH (7.32-7.43); PO2 VENOUS,POC 31 mmHg
[2023-10-21 06:26] LABS: MONOCYTES ABSOLUTE AUTO 1.6 x10^3/uL (0.0-0.8)
[2023-10-21 06:28] LABS: PROTHROMBIN TIME 10.1 SEC (8.9-11.5); PTT,PARTIAL THROMBOPLSTIN TIME 27.7 SEC (21.9-33.8)
[2023-10-21 06:33] LABS: LACTIC ACID 1.4 mmol/L (0.4-2.0)
[2023-10-21 06:42] LABS: A/G RATIO 0.53; ALANINE AMINOTRANSFERASE,ALT 20 U/L (14-59); ALBUMIN 2.4 g/dL (3.4-5.0); ALKALINE PHOSPHATASE 83 U/L (46-116); ASPARTATE AMNIOTRANSFERASE,AST 17 U/L (15-37); BILIRUBIN TOTAL 0.3 mg/dL (0.2-1.0); BLOOD UREA NITROGEN,BUN 12 mg/dL (7-18); CALCIUM 9.4 mg/dL (8.5-10.1); CARBON DIOXIDE,CO2 43 mmol/L (21-32); CHLORIDE,CL 96 mmol/L (98-107); CREATININE 0.7 mg/dL (0.55-1.02); GLUCOSE RANDOM 144 mg/dL (70-99); MAGNESIUM 1.8 mg/dL (1.8-2.4); POTASSIUM,K 4.5 mmol/L (3.5-5.1); PRO B-TYPE NATRIUR PEPT,BNPPRO 440 pg/mL (<=450); PROTEIN TOTAL,TP 6.9 g/dL (6.4-8.2); SODIUM,NA 140 mmol/L (136-145)
[2023-10-21 06:44] LABS: ANION GAP 5.5 mmol/L (5-15); ESTIMATED GFR 85 mL/min (>=60)
[2023-10-21] MEDS ORDERED: Albuterol/Ipratropium 3.0-0.5 MG/3 ML Neb Soln ONE (06:54)
[2023-10-21] MEDS: Azithromycin 500 MG in Sodium Chloride 0.9% 250 ML IV ONE (08:21)
[2023-10-21 08:27] LABS: APPEARANCE,URINE CLEAR (CLEAR); BILIRUBIN,URINE NEGATIVE (NEGATIVE); COLOR,URINE LIGHT YELLOW (YELLOW); GLUCOSE,URINE NEGATIVE (NEGATIVE); KETONES,URINE NEGATIVE (NEGATIVE); LEUKOCYTE ESTERASE,URINE NEGATIVE (NEGATIVE); NITRITE,URINE NEGATIVE (NEGATIVE); OCCULT BLOOD,URINE NEGATIVE (NEGATIVE); PROTEIN,URINE NEGATIVE (NEGATIVE); UROBILINOGEN,URINE 0.2 EU/dL (0.2)
[2023-10-21] MEDS ORDERED: Sennosides 8.6 MG Tab PO PRN (11:21)
[2023-10-21] MEDS ORDERED: Ipratropium 0.06% Nasal Spray 15 ML Bottle NASBOTH PRN (11:21)
[2023-10-21] MEDS ORDERED: Hypromellose 0.3% Ophth Soln 15 ML Bottle EYEBOTH PRN (11:21)
[2023-10-21] MEDS ORDERED: Bisacodyl 10 MG Supp RECTAL PRN (11:21)
[2023-10-21] MEDS ORDERED: LORazepam 0.5 MG Tab PO PRN (11:21)
[2023-10-21] MEDS ORDERED: Acetaminophen 325 MG Tab PO PRN (11:21)
[2023-10-21] MEDS ORDERED: Loratadine 10 MG Tab PO PRN (11:21)
[2023-10-21] MEDS ORDERED: Morphine 4 MG/ML Syringe IVPUSH PRN (11:45)
[2023-10-21] MEDS: Albuterol 0.083% 2.5 MG/3 ML Neb Soln NEB PRN (11:49)
[2023-10-21] MEDS: Albuterol HFA 18 Gm Inhaler INH PRN (11:49)
[2023-10-21] MEDS: Sodium Chloride 0.9% 1,000 ML IV SCH (11:58)
[2023-10-21] MEDS: Morphine 2 MG/ML SYRINGE IVPUSH PRN (12:55)
[2023-10-21] MEDS: Budesonide 0.5 MG/2 ML Neb Susp INH SCH (20:28)
[2023-10-21] MEDS: Arformoterol 15 MCG/2 ML Neb Soln NEB SCH (20:32)
[2023-10-22 06:56] LABS: BASOPHILS PERCENT AUTO 0.2 % (0.2-1.2); EOSINOPHILS ABSOLUTE AUTO 0.1 x10^3/uL (0.0-0.5); EOSINOPHILS PERCENT AUTO 0.4 % (0.0-4.0); HEMATOCRIT 39.1 % (33.0-47.0); HEMOGLOBIN 12.9 g/dL (12.0-16.0); IMMATURE GRAN ABSOLUTE AUTO 0.02 x10^3/uL (0.00-0.07); LYMPHOCYTES ABSOLUTE AUTO 1.7 x10^3/uL (1.0-4.8); LYMPHOCYTES PERCENT AUTO 9.7 % (25.0-50.0); MEAN CORPUSCULAR HEMOGLOBIN 30.2 pg (26.0-32.0); MEAN CORPUSCULAR VOLUME 91.6 fL (78.0-93.0); MONOCYTES ABSOLUTE AUTO 2.3 x10^3/uL (0.0-0.8); MONOCYTES PERCENT AUTO 12.9 % (2.0-11.0); NEUTROPHILS ABSOLUTE AUTO 13.7 x10^3/uL (1.8-7.7); NEUTROPHILS PERCENT AUTO 76.7 % (50.0-80.0); PLATELET COUNT,PLT 329 x10^3/uL (130-400); RED BLOOD CELL COUNT 4.27 x10^6/uL (4.00-5.50)
[2023-10-22 07:16] LABS: A/G RATIO 1.07; BILIRUBIN TOTAL 0.4 mg/dL (0.2-1.0); CALCIUM 8.8 mg/dL (8.5-10.1); CREATININE 0.6 mg/dL (0.55-1.02); EST CRCL DRUG DOSING (CG) 55.21 mL/min; POTASSIUM,K 3.8 mmol/L (3.5-5.1); PROTEIN TOTAL,TP 5.8 g/dL (6.4-8.2)
[2023-10-22 07:17] LABS: ANION GAP 8.8 mmol/L (5-15)
[2023-10-22 07:19] LABS: WHITE BLOOD CELL COUNT,WBC 17.9 x10^3/uL (4.0-10.0)
[2023-10-22] MEDS: Lidocaine 1% 30 ML SDV INJECT ONE (07:58)
[2023-10-22] MEDS: cefTRIAXone 1 GM Vial IVPUSH ONE (07:58)
[2023-10-22] MEDS: methylPREDNISolone Sodium Succinate 125 MG/2 ML SDV IV ONE (07:58)
[2023-10-22] MEDS: Metoprolol Succinate 50 MG Tab.ER PO SCH (09:00)
[2023-10-22] MEDS: Levothyroxine 50 MCG Tab PO SCH (09:00)
[2023-10-22] MEDS: Digoxin 125 MCG Tab PO SCH (09:01)
[2023-10-22] MEDS: Tiotropium Bromide 4 GM Inhalation Spray (2.5mcg/1 dose; 10 doses) INH SCH (09:02)
[2023-10-22] MEDS: cefTRIAXone 1 GM Vial IVPUSH SCH (09:02)
[2023-10-22] MEDS: Azithromycin 500 MG in Sodium Chloride 0.9% 250 ML IV SCH (09:03)
[2023-10-22] MEDS: Polyethylene Glycol 3350 Powder 17 GM Packet PO SCH (09:17)
[2023-10-22] MEDS ORDERED: QUEtiapine 25 MG Tab PO PRN (21:28)
[2023-10-23 06:48] LABS: BASOPHILS ABSOLUTE AUTO 0.1 x10^3/uL (0.0-0.2); BASOPHILS PERCENT AUTO 0.3 % (0.2-1.2); EOSINOPHILS ABSOLUTE AUTO 0.2 x10^3/uL (0.0-0.5); EOSINOPHILS PERCENT AUTO 1.1 % (0.0-4.0); HEMATOCRIT 41.6 % (33.0-47.0); HEMOGLOBIN 13.6 g/dL (12.0-16.0); IMMATURE GRAN ABSOLUTE AUTO 0.04 x10^3/uL (0.00-0.07); LYMPHOCYTES ABSOLUTE AUTO 1.4 x10^3/uL (1.0-4.8); LYMPHOCYTES PERCENT AUTO 9.6 % (25.0-50.0); MEAN CORPUSCULAR HGB CONC 32.7 g/dL (32.0-36.0); MEAN CORPUSCULAR VOLUME 91.8 fL (78.0-93.0); MONOCYTES ABSOLUTE AUTO 2.2 x10^3/uL (0.0-0.8); MONOCYTES PERCENT AUTO 14.4 % (2.0-11.0); NEUTROPHILS ABSOLUTE AUTO 11.1 x10^3/uL (1.8-7.7); NEUTROPHILS PERCENT AUTO 74.3 % (50.0-80.0); PLATELET COUNT,PLT 396 x10^3/uL (130-400); RED BLOOD CELL COUNT 4.53 x10^6/uL (4.00-5.50)
[2023-10-23 07:04] LABS: CALCIUM 8.9 mg/dL (8.5-10.1); CREATININE 0.5 mg/dL (0.55-1.02); EST CRCL DRUG DOSING (CG) 66.25 mL/min; POTASSIUM,K 3.2 mmol/L (3.5-5.1); WHITE BLOOD CELL COUNT,WBC 14.9 x10^3/uL (4.0-10.0)
[2023-10-23 07:12] LABS: ANION GAP 12.2 mmol/L (5-15)
[2023-10-23] MEDS: Digoxin 500 MCG/2 ML Amp IVPUSH ONE (08:35)
[2023-10-23] MEDS: methylPREDNISolone Sodium Succinate 40 MG/1 ML SDV IVPUSH SCH (08:39)
[2023-10-23] MEDS: Potassium Chloride 10 MEQ Tab.ER PO SCH (08:41)
[2023-10-23] MEDS: Apixaban 2.5 MG Tab PO SCH (20:42)
[2023-10-23] MEDS: Albuterol/Ipratropium 3.0-0.5 MG/3 ML Neb Soln NEB SCH (20:50)
[2023-10-24 06:49] LABS: BASOPHILS PERCENT AUTO 0.1 % (0.2-1.2); HEMATOCRIT 41.9 % (33.0-47.0); HEMOGLOBIN 13.9 g/dL (12.0-16.0); IMMATURE GRAN ABSOLUTE AUTO 0.02 x10^3/uL (0.00-0.07); LYMPHOCYTES ABSOLUTE AUTO 0.6 x10^3/uL (1.0-4.8); LYMPHOCYTES PERCENT AUTO 4.9 % (25.0-50.0); MEAN CORPUSCULAR HEMOGLOBIN 30.2 pg (26.0-32.0); MEAN CORPUSCULAR HGB CONC 33.2 g/dL (32.0-36.0); MEAN CORPUSCULAR VOLUME 90.9 fL (78.0-93.0); MONOCYTES ABSOLUTE AUTO 0.7 x10^3/uL (0.0-0.8); MONOCYTES PERCENT AUTO 5.9 % (2.0-11.0); NEUTROPHILS ABSOLUTE AUTO 10.6 x10^3/uL (1.8-7.7); PLATELET COUNT,PLT 395 x10^3/uL (130-400); RED BLOOD CELL COUNT 4.61 x10^6/uL (4.00-5.50)
[2023-10-24 07:04] LABS: ANION GAP 13.1 mmol/L (5-15); CALCIUM 9.2 mg/dL (8.5-10.1); CREATININE 0.6 mg/dL (0.55-1.02); EST CRCL DRUG DOSING (CG) 51.15 mL/min; POTASSIUM,K 4.1 mmol/L (3.5-5.1)
[2023-10-24 07:08] LABS: NEUTROPHILS PERCENT AUTO 88.9 % (50.0-80.0)
[2023-10-24 08:13] VITALS: BP 117/61
[2023-10-24] MEDS: Potassium Chloride 10 MEQ Tab.ER PO SCH (08:51)
[2023-10-24] MEDS: predniSONE 20 MG Tab PO SCH (08:51)
[2023-10-24] MEDS: Azithromycin 250 MG Tab PO SCH (08:51)
[2023-10-24 09:00] VITALS: PULSE 100
== END 2023-10-24 10:45 | disposition swing bed (61) | DRG 987 ==
LOC: VM.ED 05:35 → VM.MS 08:17
PROVIDERS: ADMIT Nurse Practitioner Family; ATTEND Internal Medicine
PROC: 0JQ10ZZ Repair Face Subcutaneous Tissue and Fascia, Open Approach (ICD-10-PCS; principal; 2023-10-21)
PROC: 2W39X1Z Immobilization of Left Upper Extremity using Splint (ICD-10-PCS; 2023-10-21)
PROC: 5A09357 Assistance with Respiratory Ventilation, Less than 24 Consecutive Hours, Continuous Positive Airway Pressure (ICD-10-PCS; 2023-10-21)
PROC: 0T9B70Z Drainage of Bladder with Drainage Device, Via Natural or Artificial Opening (ICD-10-PCS; 2023-10-21)
DX: J18.9 Pneumonia, unspecified organism (principal); J96.21 Acute and chronic respiratory failure with hypoxia; J96.22 Acute and chronic respiratory failure with hypercapnia; S52.502A Unspecified fracture of the lower end of left radius, initial encounter for closed fracture; F03.94 Unspecified dementia, unspecified severity, with anxiety; E78.00 Pure hypercholesterolemia, unspecified; J44.0 Chronic obstructive pulmonary disease with (acute) lower respiratory infection; J44.1 Chronic obstructive pulmonary disease with (acute) exacerbation; I48.19 Other persistent atrial fibrillation; S52.615A Nondisplaced fracture of left ulna styloid process, initial encounter for closed fracture; S01.01XA Laceration without foreign body of scalp, initial encounter; W19.XXXA Unspecified fall, initial encounter; I48.91 Unspecified atrial fibrillation; W01.198A Fall on same level from slipping, tripping and stumbling with subsequent striking against other object, initial encounter; H91.90 Unspecified hearing loss, unspecified ear; H54.7 Unspecified visual loss; I10 Essential (primary) hypertension; K21.9 Gastro-esophageal reflux disease without esophagitis; M81.0 Age-related osteoporosis without current pathological fracture; E03.9 Hypothyroidism, unspecified; Z96.649 Presence of unspecified artificial hip joint; Z66 Do not resuscitate; R91.8 Other nonspecific abnormal finding of lung field; E78.2 Mixed hyperlipidemia; F41.1 Generalized anxiety disorder; E87.6 Hypokalemia; Z99.81 Dependence on supplemental oxygen; Z79.01 Long term (current) use of anticoagulants; Z79.51 Long term (current) use of inhaled steroids; Z79.899 Other long term (current) drug therapy; Z86.16 Personal history of COVID-19; Z98.49 Cataract extraction status, unspecified eye; Z90.49 Acquired absence of other specified parts of digestive tract; Z98.890 Other specified postprocedural states; Z90.710 Acquired absence of both cervix and uterus
CPT/HCPCS: 12013; 29125; 36415; 70450; 71045; 72125; 72170; 73110-LT; 80048; 80053; 80162; 81003; 82803; 83605; 83735; 83880; 84443; 84484; 85025; 85610; 85730; 87040; 93005; 93010; 94640; 94760; 97165-GO; 97535-GO; 99284; A9270-GY; J0456; J0696; J1160; J2270; J2919; J3490; J7030; J7050; J7512; J7613-GY; J7620-GY

== ENCOUNTER 2023-10-24 08:20 | Inpatient (IN) | payer MEDICARE, OTHER ==
[2023-10-24] MEDS ORDERED: Loratadine 10 MG Tab PO PRN (10:17)
[2023-10-24] MEDS ORDERED: Albuterol/Ipratropium 3.0-0.5 MG/3 ML Neb Soln NEB PRN (10:17)
[2023-10-24] MEDS ORDERED: Morphine 2 MG/ML SYRINGE IVPUSH PRN (10:17)
[2023-10-24] MEDS ORDERED: Sennosides 8.6 MG Tab PO PRN (10:17)
[2023-10-24] MEDS ORDERED: Morphine 4 MG/ML Syringe IVPUSH PRN (10:17)
[2023-10-24] MEDS ORDERED: Bisacodyl 10 MG Supp RECTAL PRN (10:17)
[2023-10-24] MEDS ORDERED: Albuterol/Ipratropium 3.0-0.5 MG/3 ML Neb Soln NEB ONE (10:17)
[2023-10-24] MEDS: Albuterol 0.083% 2.5 MG/3 ML Neb Soln NEB SCH (11:07)
[2023-10-24] MEDS: Apixaban 2.5 MG Tab PO SCH (20:38)
[2023-10-24] MEDS: Budesonide 0.5 MG/2 ML Neb Susp INH SCH (20:40)
[2023-10-24] MEDS: Arformoterol 15 MCG/2 ML Neb Soln NEB SCH (20:41)
[2023-10-24] MEDS: Acetaminophen 325 MG Tab PO PRN (22:19)
[2023-10-25] MEDS: Metoprolol Succinate 50 MG Tab.ER PO SCH (10:11)
[2023-10-25] MEDS: Digoxin 125 MCG Tab PO SCH (10:14)
[2023-10-25] MEDS: Azithromycin 250 MG Tab PO SCH (10:15)
[2023-10-25] MEDS: Levothyroxine 50 MCG Tab PO SCH (10:15)
[2023-10-25] MEDS: Polyethylene Glycol 3350 Powder 17 GM Packet PO SCH (10:16)
[2023-10-25] MEDS: predniSONE 20 MG Tab PO SCH (10:16)
[2023-10-25] MEDS: Potassium Chloride 10 MEQ Tab.ER PO SCH (10:16)
[2023-10-25] MEDS: Tiotropium Bromide 4 GM Inhalation Spray (2.5mcg/1 dose; 10 doses) INH SCH (11:11)
[2023-10-26 11:30] LABS: CALCIUM 8.8 mg/dL (8.5-10.1); CREATININE 0.6 mg/dL (0.55-1.02); EST CRCL DRUG DOSING (CG) 51.64 mL/min; POTASSIUM,K 3.9 mmol/L (3.5-5.1)
[2023-10-26 11:31] LABS: ANION GAP 8.9 mmol/L (5-15); BASOPHILS PERCENT AUTO 0.1 % (0.2-1.2); EOSINOPHILS ABSOLUTE AUTO 0.2 x10^3/uL (0.0-0.5); EOSINOPHILS PERCENT AUTO 1.4 % (0.0-4.0); HEMATOCRIT 38.5 % (33.0-47.0); HEMOGLOBIN 12.8 g/dL (12.0-16.0); IMMATURE GRAN ABSOLUTE AUTO 0.02 x10^3/uL (0.00-0.07); LYMPHOCYTES ABSOLUTE AUTO 1.9 x10^3/uL (1.0-4.8); MEAN CORPUSCULAR HEMOGLOBIN 30.3 pg (26.0-32.0); MEAN CORPUSCULAR HGB CONC 33.2 g/dL (32.0-36.0); MEAN CORPUSCULAR VOLUME 91.2 fL (78.0-93.0); MONOCYTES ABSOLUTE AUTO 1.9 x10^3/uL (0.0-0.8); MONOCYTES PERCENT AUTO 17.7 % (2.0-11.0); NEUTROPHILS PERCENT AUTO 63.6 % (50.0-80.0); RED BLOOD CELL COUNT 4.22 x10^6/uL (4.00-5.50)
[2023-10-26 11:34] LABS: PLATELET COUNT,PLT 405 x10^3/uL (130-400)
[2023-10-26] MEDS ORDERED: Menthol 10%/Methyl Salicylate 15% 85 GM Tube TOP PRN (14:34)
[2023-10-26] MEDS: Mirtazapine 15 MG Tab PO SCH (20:18)
[2023-10-26] MEDS: Menthol Lozenge MUCMEM PRN (21:41)
[2023-10-28] MEDS: QUEtiapine 25 MG Tab PO PRN (21:36)
[2023-10-30] MEDS: predniSONE 20 MG Tab PO SCH (09:17)
[2023-10-31] MEDS: predniSONE 10 MG Tab PO SCH (08:48)
[2023-11-02 09:07] VITALS: BP 97/63; PULSE 89
== END 2023-11-02 10:42 | DRG 559 ==
LOC: VM.MS 10:48
PROVIDERS: ADMIT Internal Medicine; ATTEND Internal Medicine
DX: S52.502D Unspecified fracture of the lower end of left radius, subsequent encounter for closed fracture with routine healing (principal); J96.21 Acute and chronic respiratory failure with hypoxia; J96.22 Acute and chronic respiratory failure with hypercapnia; J44.1 Chronic obstructive pulmonary disease with (acute) exacerbation; F03.94 Unspecified dementia, unspecified severity, with anxiety; S09.90XD Unspecified injury of head, subsequent encounter; I48.91 Unspecified atrial fibrillation; M81.0 Age-related osteoporosis without current pathological fracture; E87.6 Hypokalemia; K21.9 Gastro-esophageal reflux disease without esophagitis; I10 Essential (primary) hypertension; E03.9 Hypothyroidism, unspecified; Z79.890 Hormone replacement therapy; Z79.01 Long term (current) use of anticoagulants; Z79.899 Other long term (current) drug therapy; W01.0XXD Fall on same level from slipping, tripping and stumbling without subsequent striking against object, subsequent encounter
CPT/HCPCS: 36415; 73100-LT; 80048; 85025; 94640; 94760; 97110-GP; 97116-GP; 97161-GP; 97530-GP; 97535-GO; A9270-GY; J3490; J7512; J7613-GY

== ENCOUNTER 2023-11-28 13:18 | Inpatient (IN) | payer MEDICARE, OTHER ==
[2023-11-28] MEDS ORDERED: Sodium Chloride 0.9% 10 ML Syringe FLUSH PRN (13:20)
[2023-11-28] MEDS: Albuterol/Ipratropium 3.0-0.5 MG/3 ML Neb Soln NEB ONE ×2 (13:30→14:38)
[2023-11-28] MEDS: methylPREDNISolone Sodium Succinate 125 MG/2 ML SDV IV ONE (13:33)
[2023-11-28] MEDS: Morphine 4 MG/ML Syringe IVPUSH ONE (13:35)
[2023-11-28 13:36] LABS: HEMATOCRIT 46.4 % (33.0-47.0); HEMOGLOBIN 15.5 g/dL (12.0-16.0); MEAN CORPUSCULAR HEMOGLOBIN 29.6 pg (26.0-32.0); MEAN CORPUSCULAR HGB CONC 33.4 g/dL (32.0-36.0); MEAN CORPUSCULAR VOLUME 88.5 fL (78.0-93.0); PLATELET COUNT,PLT 433 x10^3/uL (130-400); RED BLOOD CELL COUNT 5.24 x10^6/uL (4.00-5.50)
[2023-11-28 13:40] LABS: HCO3 VENOUS,POC 32 mmol/L (22-29); O2 SATURATION VENOUS,POC 54 %; PCO2 VENOUS,POC 64 mmHg (41-51); PO2 VENOUS,POC 32 mmHg
[2023-11-28 13:44] LABS: WHITE BLOOD CELL COUNT,WBC 26.8 x10^3/uL (4.0-10.0)
[2023-11-28] MEDS: cefTRIAXone 1 GM Vial IVPUSH ONE (13:53)
[2023-11-28 13:55] LABS: LACTIC ACID 1.8 mmol/L (0.4-2.0)
[2023-11-28] MEDS: Azithromycin 500 MG in Sodium Chloride 0.9% 250 ML IV ONE (13:57)
[2023-11-28 14:06] LABS: BAND PERCENT MAN 3 % (0-6); LYMPHOCYTES ABSOLUTE MAN 0.8 x10^3/uL (1.0-4.8); LYMPHOCYTES PERCENT MAN 3 % (25-50); MONOCYTES ABSOLUTE MAN 3.8 x10^3/uL (0.0-0.8); MONOCYTES PERCENT MAN 14 % (2-11); NEUTROPHILS ABSOLUTE MAN 22.2 x10^3/uL (1.8-7.7); SEG NEUTROPHILS PERCENT MAN 80 % (50-80)
[2023-11-28 14:07] LABS: PLATELET COUNT ESTIMATE INCREASED
[2023-11-28 14:08] LABS: A/G RATIO 0.95; ALANINE AMINOTRANSFERASE,ALT 18 U/L (14-59); ALBUMIN 3.6 g/dL (3.4-5.0); ALKALINE PHOSPHATASE 109 U/L (46-116); ASPARTATE AMNIOTRANSFERASE,AST 25 U/L (15-37); BILIRUBIN TOTAL 0.7 mg/dL (0.2-1.0); BLOOD UREA NITROGEN,BUN 11 mg/dL (7-18); CALCIUM 9.3 mg/dL (8.5-10.1); CARBON DIOXIDE,CO2 33 mmol/L (21-32); CHLORIDE,CL 93 mmol/L (98-107); CREATININE 0.7 mg/dL (0.55-1.02); GLUCOSE RANDOM 130 mg/dL (70-99); MAGNESIUM 1.9 mg/dL (1.8-2.4); POTASSIUM,K 5.1 mmol/L (3.5-5.1); PRO B-TYPE NATRIUR PEPT,BNPPRO 1825 pg/mL (<=450); PROTEIN TOTAL,TP 7.4 g/dL (6.4-8.2); SODIUM,NA 131 mmol/L (136-145); TSH ULTRASENSITIVE 1.888 uIU/mL (0.358-3.74)
[2023-11-28 14:09] LABS: ANION GAP 10.1 mmol/L (5-15); ESTIMATED GFR 85 mL/min (>=60)
[2023-11-28 14:12] LABS: INR 1.2 (0.9-1.1); PROTHROMBIN TIME 11.7 SEC (8.9-11.5)
[2023-11-28 14:39] LABS: CORONAVIRUS COVID-19 NAA NEGATIVE (NEGATIVE); INFLUENZA A NAA NEGATIVE (NEGATIVE); INFLUENZA B NAA NEGATIVE (NEGATIVE); RESPIRATORY SYNCYTIAL VIR NAA NEGATIVE (NEGATIVE)
[2023-11-28] MEDS ORDERED: Albuterol/Ipratropium 3.0-0.5 MG/3 ML Neb Soln INH PRN (15:53)
[2023-11-28] MEDS ORDERED: Acetaminophen 325 MG Tab PO PRN (15:53)
[2023-11-28] MEDS ORDERED: Non-Formulary Medication 1 Each (Cetirizine [Zyrtec] 10 MG Tablet) PO PRN (15:53)
[2023-11-28] MEDS ORDERED: Non-Formulary Medication 1 Each (Carboxymethylcellulose Sodium [Artificial Tears] 15 ML Dr EYEBOTH PRN (15:53)
[2023-11-28] MEDS ORDERED: LORazepam 0.5 MG Tab PO PRN (15:53)
[2023-11-28] MEDS ORDERED: Albuterol 0.083% 2.5 MG/3 ML Neb Soln NEB PRN (15:53)
[2023-11-28] MEDS ORDERED: Ipratropium 0.06% Nasal Spray 15 ML Bottle NASBOTH PRN (15:53)
[2023-11-28] MEDS ORDERED: Morphine 2 MG/ML SYRINGE IVPUSH PRN (15:57)
[2023-11-28] MEDS ORDERED: Flumazenil 0.1 MG/ML 5 ML MDV IVPUSH PRN (15:57)
[2023-11-28] MEDS ORDERED: LORazepam 2 MG/ML SDV IVPUSH PRN (15:57)
[2023-11-28] MEDS ORDERED: QUEtiapine 25 MG Tab PO PRN (16:11)
[2023-11-28] MEDS: Azithromycin 500 MG in Sodium Chloride 0.9% 250 ML IV SCH (16:20)
[2023-11-28] MEDS: cefTRIAXone 1 GM Vial IVPUSH SCH (16:20)
[2023-11-28] MEDS ORDERED: Sennosides 8.6 MG Tab PO PRN (16:21)
[2023-11-28] MEDS: Digoxin 125 MCG Tab PO SCH (16:25)
[2023-11-28] MEDS: Aspirin 81 MG Tab.Chew PO SCH (16:26)
[2023-11-28] MEDS ORDERED: Loratadine 10 MG Tab PO PRN (16:32)
[2023-11-28] MEDS ORDERED: Hypromellose 0.3% Ophth Soln 15 ML Bottle EYEBOTH PRN (16:33)
[2023-11-28] MEDS: Albuterol/Ipratropium 3.0-0.5 MG/3 ML Neb Soln NEB SCH (18:48)
[2023-11-28] MEDS: methylPREDNISolone Sodium Succinate 40 MG/1 ML SDV IVPUSH SCH (22:00)
[2023-11-28] MEDS: Apixaban 2.5 MG Tab PO SCH (22:00)
[2023-11-28] MEDS: Arformoterol 15 MCG/2 ML Neb Soln NEB SCH (22:14)
[2023-11-29 07:18] LABS: HEMATOCRIT 45.3 % (33.0-47.0); MEAN CORPUSCULAR HEMOGLOBIN 29.6 pg (26.0-32.0); MEAN CORPUSCULAR HGB CONC 33.1 g/dL (32.0-36.0); MEAN CORPUSCULAR VOLUME 89.5 fL (78.0-93.0); PLATELET COUNT,PLT 470 x10^3/uL (130-400); RED BLOOD CELL COUNT 5.06 x10^6/uL (4.00-5.50)
[2023-11-29 07:22] LABS: WHITE BLOOD CELL COUNT,WBC 20.8 x10^3/uL (4.0-10.0)
[2023-11-29 07:32] LABS: CALCIUM 9.5 mg/dL (8.5-10.1); CREATININE 0.7 mg/dL (0.55-1.02); EST CRCL DRUG DOSING (CG) 45.02 mL/min; POTASSIUM,K 4.5 mmol/L (3.5-5.1)
[2023-11-29 07:35] LABS: ANION GAP 11.5 mmol/L (5-15)
[2023-11-29 07:37] LABS: C-REACTIVE PROTEIN 19.79 mg/dL (<=0.50)
[2023-11-29 07:48] LABS: BAND PERCENT MAN 6 % (0-6); LYMPHOCYTES ABSOLUTE MAN 0.4 x10^3/uL (1.0-4.8); LYMPHOCYTES PERCENT MAN 2 % (25-50); MONOCYTES ABSOLUTE MAN 0.6 x10^3/uL (0.0-0.8); MONOCYTES PERCENT MAN 3 % (2-11); NEUTROPHILS ABSOLUTE MAN 19.8 x10^3/uL (1.8-7.7); SEG NEUTROPHILS PERCENT MAN 89 % (50-80)
[2023-11-29 07:49] LABS: PLATELET COUNT ESTIMATE INCREASED
[2023-11-29] MEDS: cefTRIAXone 1 GM Vial IVPUSH SCH (09:12)
[2023-11-29] MEDS: Azithromycin 250 MG Tab PO SCH (09:12)
[2023-11-29] MEDS: Polyethylene Glycol 3350 Powder 17 GM Packet PO SCH (09:13)
[2023-11-29] MEDS: Metoprolol Succinate 50 MG Tab.ER PO SCH (09:13)
[2023-11-29] MEDS: Levothyroxine 50 MCG Tab PO SCH (09:20)
[2023-11-30 07:07] LABS: HEMOGLOBIN 13.3 g/dL (12.0-16.0); MEAN CORPUSCULAR HGB CONC 34.1 g/dL (32.0-36.0); MEAN CORPUSCULAR VOLUME 87.8 fL (78.0-93.0); PLATELET COUNT,PLT 463 x10^3/uL (130-400); RED BLOOD CELL COUNT 4.44 x10^6/uL (4.00-5.50)
[2023-11-30 07:10] LABS: WHITE BLOOD CELL COUNT,WBC 27.4 x10^3/uL (4.0-10.0)
[2023-11-30 07:28] LABS: ANION GAP 8.6 mmol/L (5-15); BLOOD UREA NITROGEN,BUN 22 mg/dL (7-18); CALCIUM 9.4 mg/dL (8.5-10.1); CARBON DIOXIDE,CO2 33 mmol/L (21-32); CHLORIDE,CL 95 mmol/L (98-107); CREATININE 0.6 mg/dL (0.55-1.02); ESTIMATED GFR 88 mL/min (>=60); GLUCOSE RANDOM 135 mg/dL (70-99); POTASSIUM,K 4.6 mmol/L (3.5-5.1); SODIUM,NA 132 mmol/L (136-145)
[2023-11-30 07:30] LABS: BAND PERCENT MAN 5 % (0-6); LYMPHOCYTES ABSOLUTE MAN 0.5 x10^3/uL (1.0-4.8); LYMPHOCYTES PERCENT MAN 2 % (25-50); MONOCYTES ABSOLUTE MAN 1.1 x10^3/uL (0.0-0.8); MONOCYTES PERCENT MAN 4 % (2-11); NEUTROPHILS ABSOLUTE MAN 25.8 x10^3/uL (1.8-7.7); SEG NEUTROPHILS PERCENT MAN 89 % (50-80)
[2023-11-30 07:31] LABS: GIANT PLATELETS FEW; PLATELET COUNT ESTIMATE INCREASED
[2023-11-30 10:41] VITALS: BP 110/65; PULSE 81
== END 2023-11-30 10:30 | DRG 189 ==
LOC: VM.ED 13:18 → VM.MS 14:48
PROVIDERS: ADMIT Internal Medicine; ATTEND Internal Medicine
PROC: 5A0935A Assistance with Respiratory Ventilation, Less than 24 Consecutive Hours, High Flow/Velocity Cannula (ICD-10-PCS; principal; 2023-11-28)
DX: J96.21 Acute and chronic respiratory failure with hypoxia (principal); J96.01 Acute respiratory failure with hypoxia; I10 Essential (primary) hypertension; I48.91 Unspecified atrial fibrillation; I21.4 Non-ST elevation (NSTEMI) myocardial infarction; J44.1 Chronic obstructive pulmonary disease with (acute) exacerbation; E46 Unspecified protein-calorie malnutrition; E87.1 Hypo-osmolality and hyponatremia; I50.22 Chronic systolic (congestive) heart failure; F02.84 Dementia in other diseases classified elsewhere, unspecified severity, with anxiety; R64 Cachexia; Z68.1 Body mass index [BMI] 19.9 or less, adult; Z79.2 Long term (current) use of antibiotics; Z79.51 Long term (current) use of inhaled steroids; J96.22 Acute and chronic respiratory failure with hypercapnia; Z66 Do not resuscitate; E86.0 Dehydration; I11.0 Hypertensive heart disease with heart failure; E03.9 Hypothyroidism, unspecified; I48.0 Paroxysmal atrial fibrillation; F39 Unspecified mood [affective] disorder; M81.0 Age-related osteoporosis without current pathological fracture; G30.9 Alzheimer's disease, unspecified; S62.102D Fracture of unspecified carpal bone, left wrist, subsequent encounter for fracture with routine healing; E78.00 Pure hypercholesterolemia, unspecified; Z99.81 Dependence on supplemental oxygen; Z90.89 Acquired absence of other organs; Z90.49 Acquired absence of other specified parts of digestive tract; Z79.01 Long term (current) use of anticoagulants; Z86.16 Personal history of COVID-19; Z79.52 Long term (current) use of systemic steroids; Z96.642 Presence of left artificial hip joint; Z98.890 Other specified postprocedural states; Z79.890 Hormone replacement therapy; Z90.710 Acquired absence of both cervix and uterus; Z79.899 Other long term (current) drug therapy
CPT/HCPCS: 0241U; 36415; 71045; 80048; 80053; 82803; 82947; 83605; 83735; 83880; 84443; 84484; 85025; 85610; 85730; 86140; 87040; 87070; 93005; 94640; 94667; 94760; 97161-GP; 99284; A9270-GY; J0456; J0696; J2270; J2919; J3490; J7050; J7620-GY

== ENCOUNTER 2024-03-20 14:40 | Emergency (ER) | payer MEDICARE, OTHER ==
[2024-03-20 15:04] LABS: BASOPHILS PERCENT AUTO 0.2 % (0.2-1.2); EOSINOPHILS ABSOLUTE AUTO 0.1 x10^3/uL (0.0-0.5); EOSINOPHILS PERCENT AUTO 0.4 % (0.0-4.0); HEMATOCRIT 40.7 % (33.0-47.0); HEMOGLOBIN 13.5 g/dL (12.0-16.0); IMMATURE GRAN ABSOLUTE AUTO 0.07 x10^3/uL (0.00-0.07); LYMPHOCYTES ABSOLUTE AUTO 0.9 x10^3/uL (1.0-4.8); MEAN CORPUSCULAR HEMOGLOBIN 29.9 pg (26.0-32.0); MEAN CORPUSCULAR HGB CONC 33.2 g/dL (32.0-36.0); MEAN CORPUSCULAR VOLUME 90.2 fL (78.0-93.0); NEUTROPHILS ABSOLUTE AUTO 11.7 x10^3/uL (1.8-7.7); NEUTROPHILS PERCENT AUTO 79.3 % (50.0-80.0); PLATELET COUNT,PLT 518 x10^3/uL (130-400); RED BLOOD CELL COUNT 4.51 x10^6/uL (4.00-5.50); WHITE BLOOD CELL COUNT,WBC 14.8 x10^3/uL (4.0-10.0)
[2024-03-20 15:11] LABS: MONOCYTES PERCENT AUTO 13.6 % (2.0-11.0)
[2024-03-20 15:20] LABS: A/G RATIO 0.81; ALBUMIN 2.9 g/dL (3.4-5.0); ANION GAP 9.6 mmol/L (5-15); BILIRUBIN TOTAL 0.6 mg/dL (0.2-1.0); CALCIUM 9.1 mg/dL (8.5-10.1); CREATININE 0.7 mg/dL (0.55-1.02); EST CRCL DRUG DOSING (CG) 43.97 mL/min; POTASSIUM,K 4.6 mmol/L (3.5-5.1); PROTEIN TOTAL,TP 6.5 g/dL (6.4-8.2)
[2024-03-20 15:47] VITALS: BP 114/69; PULSE 82
[2024-03-20 15:47] LABS: CORONAVIRUS COVID-19 NAA NEGATIVE (NEGATIVE); INFLUENZA A NAA NEGATIVE (NEGATIVE); INFLUENZA B NAA NEGATIVE (NEGATIVE); RESPIRATORY SYNCYTIAL VIR NAA NEGATIVE (NEGATIVE)
== END 2024-03-20 16:42 ==
LOC: VM.ED 14:40
DX: J44.1 Chronic obstructive pulmonary disease with (acute) exacerbation (principal); I10 Essential (primary) hypertension; E78.00 Pure hypercholesterolemia, unspecified; K21.9 Gastro-esophageal reflux disease without esophagitis; E03.9 Hypothyroidism, unspecified; Z86.16 Personal history of COVID-19; Z90.49 Acquired absence of other specified parts of digestive tract; Z90.710 Acquired absence of both cervix and uterus; Z79.899 Other long term (current) drug therapy; Z79.890 Hormone replacement therapy
CPT/HCPCS: 0241U; 36415; 71045; 80053; 83605; 85025; 99284; 99285

== ENCOUNTER 2024-04-24 13:44 | Emergency (ER) | payer MEDICARE, OTHER ==
[2024-04-24 14:05] LABS: BASOPHILS PERCENT AUTO 0.1 % (0.2-1.2); EOSINOPHILS PERCENT AUTO 0.3 % (0.0-4.0); HEMATOCRIT 41.8 % (33.0-47.0); HEMOGLOBIN 13.7 g/dL (12.0-16.0); IMMATURE GRAN ABSOLUTE AUTO 0.03 x10^3/uL (0.00-0.07); LYMPHOCYTES ABSOLUTE AUTO 0.3 x10^3/uL (1.0-4.8); LYMPHOCYTES PERCENT AUTO 2.2 % (25.0-50.0); MEAN CORPUSCULAR HEMOGLOBIN 29.4 pg (26.0-32.0); MEAN CORPUSCULAR HGB CONC 32.8 g/dL (32.0-36.0); MEAN CORPUSCULAR VOLUME 89.7 fL (78.0-93.0); MONOCYTES ABSOLUTE AUTO 1.1 x10^3/uL (0.0-0.8); MONOCYTES PERCENT AUTO 7.5 % (2.0-11.0); NEUTROPHILS ABSOLUTE AUTO 13.3 x10^3/uL (1.8-7.7); NEUTROPHILS PERCENT AUTO 89.7 % (50.0-80.0); PLATELET COUNT,PLT 386 x10^3/uL (130-400); RED BLOOD CELL COUNT 4.66 x10^6/uL (4.00-5.50); WHITE BLOOD CELL COUNT,WBC 14.9 x10^3/uL (4.0-10.0)
[2024-04-24 14:15] LABS: BLOOD UREA NITROGEN,BUN 19 mg/dL (7-18); CALCIUM 8.8 mg/dL (8.5-10.1); CARBON DIOXIDE,CO2 32 mmol/L (21-32); CHLORIDE,CL 97 mmol/L (98-107); CREATININE 0.9 mg/dL (0.55-1.02); GLUCOSE RANDOM 182 mg/dL (70-99); POTASSIUM,K 3.9 mmol/L (3.5-5.1); SODIUM,NA 136 mmol/L (136-145)
[2024-04-24 14:17] LABS: ANION GAP 10.9 mmol/L (5-15); ESTIMATED GFR 63 mL/min (>=60)
[2024-04-24] MEDS: Albuterol/Ipratropium 3.0-0.5 MG/3 ML Neb Soln NEB ONE (14:31)
[2024-04-24 16:51] LABS: APPEARANCE,URINE CLOUDY (CLEAR); BILIRUBIN,URINE SMALL (NEGATIVE); COLOR,URINE DARK YELLOW (YELLOW); GLUCOSE,URINE NEGATIVE (NEGATIVE); KETONES,URINE 15 mg/dL (NEGATIVE); LEUKOCYTE ESTERASE,URINE MODERATE (NEGATIVE); NITRITE,URINE NEGATIVE (NEGATIVE); OCCULT BLOOD,URINE TRACE-LYSED (NEGATIVE); PROTEIN,URINE 30 mg/dL (NEGATIVE)
[2024-04-24 16:59] LABS: BACTERIA,URINE FEW /HPF (NOT SEEN); MUCUS,URINE MANY /LPF (NOT SEEN); SQUAMOUS EPITHELIAL CELLS,UR MODERATE /HPF (NOT SEEN); WBC,URINE 20-30 /HPF (NOT SEEN)
[2024-04-24] MEDS: Nitrofurantoin Monohydrate/Macrocrystalline 100 MG Cap PO ONE (19:02)
[2024-04-24 19:48] VITALS: PULSE 78
[2024-04-24 19:50] VITALS: BP 133/77
== END 2024-04-24 19:42 ==
LOC: VM.ED 13:44
DX: J44.9 Chronic obstructive pulmonary disease, unspecified (principal); N30.01 Acute cystitis with hematuria; I48.91 Unspecified atrial fibrillation; I10 Essential (primary) hypertension; E03.9 Hypothyroidism, unspecified; Z86.16 Personal history of COVID-19; Z90.49 Acquired absence of other specified parts of digestive tract; Z90.710 Acquired absence of both cervix and uterus; Z96.659 Presence of unspecified artificial knee joint; Z79.01 Long term (current) use of anticoagulants; Z79.51 Long term (current) use of inhaled steroids; Z79.890 Hormone replacement therapy; Z79.899 Other long term (current) drug therapy
CPT/HCPCS: 36415; 71046; 80048; 81001; 85025; 87086; 87428; 93005; 99285; A9270; J7620-GY